=== PATIENT | female | born 1960 | race Caucasian/White ===

== ENCOUNTER 2016-05-23 13:04 | Emergency (ER) | payer OTHER ==
[~2016-05-23] VITALS: Ht 160 cm; Wt 69.2 kg
[~2016-05-23 13:04] MED LIST: ALPR-411 PO; BNT20 PO; CALCTAB13 PO; CIPR-255 PO; CYCL10TA6 PO; ESOM20CA PO; GABA1CAP4 PO; METR-163 PO; OMEG10007 PO; VITA400C15 PO
[2016-05-23 13:10] VITALS: Ht 160 cm; Wt 69.2 kg
[2016-05-23] MEDS ORDERED: SODIUM CHLORIDE 0.9% 1000ML 1,000 ML IV STA (14:59)
[2016-05-23] MEDS ORDERED: ONDANSETRON INJ 2 MG/ML 2 ML VIAL IV STA (14:59)
[2016-05-23] MEDS ORDERED: TRAZ50TA35 PO (15:13)
--- NOTE | 2016-05-23 15:17 | EMERGENCY ROOM VISIT NOTE ---
History Report prepared by Ashley: Jessica Null Under the Supervision of: Dr. Juan Fonseca D.O. First contact with patient: 14:54 Chief Complaint: GI ASSESSMENT Stated Complaint: BLOTED BOWELS, PAIN Nursing Triage Summary: Pt c/o loose stools, back pain, gassy sx x days History of Present Illness The patient is a 56 year old female who presents to the Emergency Room with complaints of severe and persistent left sided abdominal pain starting 3 days ago. She notes the pain radiates to her left flank. She also reports nausea, gassiness, and diarrhea. She has 4-5 bowel movements every day. She has not seen her PCP for her current symptoms. The patient denies fevers, chills, vomiting, blood in bowel movement, blood in urine, or any other complaints. She denies any history of appendectomy or cholecystectomy. Source of History: patient Onset: 3 days ago Position: abdomen (left sided) Symptom Intensity: severe Timing: other (persistent) Associated Symptoms: + diarrhea, + nausea, No chills, No fevers, No vomiting Review of Systems See HPI for pertinent positives & negatives. A total of 10 systems reviewed and were otherwise negative. Past Medical & Surgical Medical Problems: (1) Anxiety (2) Bipolar disorder (3) COPD, moderate (4) Fibromyalgia (5) GERD (gastroesophageal reflux disease) Surgical Problems: (1) History of tubal ligation (2) Lipoma tumor removal (3) Previous section Family History Diabetes mellitus Social History Smoking Status: Current Every Day Smoker Alcohol Use: none Drug Use: marijuana Marital Status: single Housing Status: lives alone Occupation Status: disabled Current/Historical Medications Scheduled Calcium Carbonate-Vitamin D (Calcium 500+D), 1 TAB PO DAILY Calcium Polycarbophil (Fiber Tabs), 625 MG PO DAILY Cyanocobalamin (Vitamin B-12), 500 MCG PO DAILY Esomeprazole Magnesium (Nexium), 20 MG PO QAM Ferrous Sulfate (Ferrous Sulfate), 325 MG PO DAILY Fish Oil ([place]-3), 1,000 MG PO QAM Gabapentin (Gabapentin), 300 MG PO TID Ondasetron Odt (Zofran Odt), 4 MG SL Q6H Trazodone Hcl (Trazodone), 50 MG PO HS Vitamin E (Vitamin E 400 Iu), 800 INTER.UNIT PO DAILY Scheduled PRN Alprazolam (Alprazolam), 0.5 MG PO TID PRN for Anxiety Cyclobenzaprine HCl (Cyclobenzaprine HCl), 10 MG PO HS PRN for Muscle Spasm Ipratropium-Albuterol (Combivent Respimat), 1 PUFF INH QID PRN for COPD Oxycodone Immediate Rel Tab (Roxicodone Ir), 1-2 TAB PO Q4H PRN for Severe Pain Oxycodone/Acetaminophen 5MG/325MG (Percocet 5MG/325MG), 1 TABLET PO Q4H PRN for Pain Allergies Coded Allergies: Lorazepam (Verified Allergy, Mild, UNK, 05/23/16) BEE STING (Unverified Allergy, Unknown, "LUNGS CLOSE UP", 05/23/16) Diclofenac (Verified Allergy, Unknown, 05/23/16) Risperidone (Verified Allergy, Unknown, UNKNOWN, 05/23/16) Physical Exam Vital Signs Date Time Temp Pulse Resp B/P Pulse Ox O2 Delivery O2 Flow Rate FiO2 05/23/16 17:13 36.6 87 20 133/88 96 05/23/16 17:11 87 20 133/88 96 Room Air 05/23/16 16:06 81 20 128/81 96 Room Air 05/23/16 13:10 36.6 84 20 130/86 96 Room Air Physical Exam GENERAL: Patient is awake, alert, mildly anxious appearing and uncomfortable. EYES: The conjunctivae are clear. The pupils are round and reactive. EARS, NOSE, MOUTH AND THROAT: The nose is without any evidence of any deformity. Mucous membranes are moist tongue is midline NECK: The neck is nontender and supple. RESPIRATORY: Normal respiratory effort is noted there is no evidence of wheezing rhonchi or rales CARDIOVASCULAR: Regular rate and rhythm noted there no murmurs rubs or gallops normal S1 normal S2 GASTROINTESTINAL: The abdomen is mildly distended but soft. Left sided tenderness to palpation. No guarding or rigidity. Bowel sounds are present in all quadrants. BACK: Left CVA tenderness to percussion, no midline tenderness noted, range of motion appeared intact. MUSCULOSKELETAL/EXTREMITIES: There is no evidence of gross deformity full range of motion is noted in the hips and shoulders SKIN: There is no obvious evidence of any rash. There are no petechiae, pallor or cyanosis noted. NEUROLOGIC: Patient is awake alert and oriented x3 Medical Decision & Procedures ER Provider Diagnostic Interpretation: CT results as stated below per my review and radiologist interpretation. CT SCAN OF THE ABDOMEN AND PELVIS WITHOUT CONTRAST CLINICAL HISTORY: left flank pain COMPARISON STUDY: 12/22/2015 TECHNIQUE: CT scan of the abdomen and pelvis was performed from the lung bases to the proximal femurs. Images are reviewed in the axial, sagittal, and coronal planes. IV contrast was not administered for this examination. CT DOSE: 399.41 mGy.cm FINDINGS: Lower chest: There are bilateral lower lobe calcified granulomas. Liver: There is hepatic steatosis. No focal masses are visualized in this noncontrast study. Gallbladder: Unremarkable. Spleen: Normal in size and attenuation. Pancreas: Unremarkable. Adrenal glands: Unremarkable. Kidneys: There is a 3 mm nonobstructing left renal calculus. No ureteral or bladder calculi are visualized. Bowel: There are no transition zones to indicate bowel obstruction. The appendix appears normal. There is persistent sigmoid wall thickening. Evaluation of the bowel is limited due to the lack of intravenous and oral contrast Peritoneum: There is no intraperitoneal free air or abdominal ascites. Vasculature: The abdominal aorta is normal in course and caliber. Adenopathy: None. Pelvic viscera: There is a 9 mm fat-containing lesion within the uterus, likely representing a lipoma. Skeletal structures: No destructive osseous lesions are seen. IMPRESSION: 1. 3 mm nonobstructing upper pole left renal calculus. No ureteral or bladder calculi identified 2. Hepatic steatosis 3. Normal appendix 4. No evidence of bowel obstruction. No evidence of free air 5. Persistent sigmoid wall thickening. Electronically signed by: Donte Yi M.D. 05/23/2016 3:56 PM Dictated Date/Time: 05/23/2016 3:50 PM Laboratory Results 05/23/16 15:15 Red Blood Count 5.22, Mean Corpuscular Volume 92.3, Mean Corpuscular Hemoglobin 31.4, Mean Corpuscular Hemoglobin Concent 34.0, Mean Platelet Volume 9.4, Neutrophils (%) (Auto) 68.3, Lymphocytes (%) (Auto) 26.1, Monocytes (%) (Auto) 5.0, Eosinophils (%) (Auto) 0.3, Basophils (%) (Auto) 0.1, Neutrophils # (Auto) 6.11, Lymphocytes # (Auto) 2.34, Monocytes # (Auto) 0.45, Eosinophils # (Auto) 0.03, Basophils # (Auto) 0.01 05/23/16 15:15 Test 05/23/16 15:15 White Blood Count 8.96 K/uL (4.8-10.8) Red Blood Count 5.22 M/uL (4.2-5.4) Hemoglobin 16.4 g/dL (12.0-16.0) Hematocrit 48.2 % (37-47) Mean Corpuscular Volume 92.3 fL (80-100) Mean Corpuscular Hemoglobin 31.4 pg (25-34) Mean Corpuscular Hemoglobin Concent 34.0 g/dl (32-36) Platelet Count 347 K/uL (130-400) Mean Platelet Volume 9.4 fL (7.4-10.4) Neutrophils (%) (Auto) 68.3 % Lymphocytes (%) (Auto) 26.1 % Monocytes (%) (Auto) 5.0 % Eosinophils (%) (Auto) 0.3 % Basophils (%) (Auto) 0.1 % Neutrophils # (Auto) 6.11 K/uL (1.4-6.5) Lymphocytes # (Auto) 2.34 K/uL (1.2-3.4) Monocytes # (Auto) 0.45 K/uL (0.11-0.59) Eosinophils # (Auto) 0.03 K/uL (0-0.5) Basophils # (Auto) 0.01 K/uL (0-0.2) RDW Standard Deviation 46.0 fL (36.4-46.3) RDW Coefficient of Variation 13.6 % (11.5-14.5) Immature Granulocyte % (Auto) 0.2 % Immature Granulocyte # (Auto) 0.02 K/uL (0.00-0.02) Urine Color DK YELLOW Urine Appearance TURBID (CLEAR) Urine pH 5.0 (4.5-7.5) Urine Specific [place] 1.037 (1.000-1.030) Urine Protein TRACE (NEG) Urine Glucose (UA) NEG (NEG) Urine Ketones 2+ (NEG) Urine Occult Blood 2+ (NEG) Urine Nitrite NEG (NEG) Urine Bilirubin NEG (NEG) Urine Urobilinogen NEG (NEG) Urine Leukocyte Esterase NEG (NEG) Urine WBC (Auto) 1-5 /hpf (0-5) Urine RBC (Auto) 5-10 /hpf (0-4) Urine Hyaline Casts (Auto) 10-30 /lpf (0-5) Urine Epithelial Cells (Auto) >30 /lpf (0-5) Urine Bacteria (Auto) 2+ (NEG) Anion Gap 11.0 mmol/L (3-11) Est Creatinine Clear Calc Drug Dose 73.3 ml/min Estimated GFR () 96.3 Estimated GFR (Non- 83.1 BUN/Creatinine Ratio 25.4 (10-20) Calcium Level 9.6 mg/dl (8.5-10.1) Total Bilirubin 0.5 mg/dl (0.2-1) Direct Bilirubin 0.1 mg/dl (0-0.2) Aspartate Amino Transf (AST/SGOT) 13 U/L (15-37) Alanine Aminotransferase (ALT/SGPT) 31 U/L (12-78) Alkaline Phosphatase 111 U/L (45-117) Total Protein 8.0 gm/dl (6.4-8.2) Albumin 4.3 gm/dl (3.4-5.0) Lipase 64 U/L (73-393) Date/Time Source Procedure Growth Status 05/23/16 17:00 Stool C.difficile Toxin B Gene (PCR) - Final Positive for C. difficile toxin B gene Complete Laboratory results per my review. Medications Administered Medications (Trade) Dose Ordered Sig/Rashawn Route Start Time Stop Time Status Last Admin Dose Admin Sodium Chloride (Nss 1000ml) 1,000 ml @ 999 mls/hr Q1H1M STAT IV 05/23/16 14:59 05/23/16 15:59 DC 05/23/16 15:23 999 MLS/HR Ondansetron HCl (Zofran Inj) 4 mg NOW STAT IV 05/23/16 14:59 05/23/16 15:19 DC 05/23/16 15:23 4 MG ED Course 1454: The patient was evaluated in room C06. A complete history and physical examination were performed. 1459: Zofran Inj 4 mg IV, Sodium Chloride 1000 mL @ 999 mls/hr IV 1626: Upon reevaluation, the patient is resting comfortably. I discussed the results and treatment plan with her. She verbalized agreement of the treatment plan. She was discharged home. Medical Decision Differential diagnosis: Etiologies such as appendicitis, diverticulitis, PUD, biliary pathology, UTI, pancreatitis, obstruction, mesenteric ischemia, aortic pathology, infections, inflammatory bowel disease, renal colic, as well as others were entertained. Nursing notes reviewed. The patient is a 56-year-old female who presented to the emergency department for an evaluation of abdominal pain and diarrhea. She had flank pain as well. The patient thought she might of either kidney stone or bowel infection. The patient had formed stool which was sent to the lab. I did not know that they could run a C. difficile test on this but it did come back positive after the patient was discharged. The emergency department pharmacist was able to contact the patient started on Flagyl. She was treated with IV fluids and IV antiemetics in the emergency department. I discussed patient's laboratory and radiographic studies with her. She was encouraged to rest and avoid any strenuous activity. She was also encouraged to continue all medications as prescribed and call her primary care physician in the morning to schedule a follow-up appointment. She was also encouraged to return to the emergency apartment immediately if symptoms change worsen or the need arises. Impression Primary Impression: Diarrhea Additional Impressions: Dehydration C. difficile colitis Scribe Attestation The scribe's documentation has been prepared under my direction and personally reviewed by me in its entirety. I confirm that the note above accurately reflects all work, treatment, procedures, and medical decision making performed by me. Departure Information Dispostion Home / Self-Care Prescriptions Ondasetron Odt (ZOFRAN ODT) 4 Mg Tab 4 MG SL Q6H for Nausea, #20 TAB Prov: Juan Fonseca, DO 05/23/16 Oxycodone Immediate Rel Tab (ROXICODONE IR) 5 Mg Tab 1-2 TAB PO Q4H Y for Severe Pain, #24 TAB Prov: Juan Fonseca, DO 05/23/16 Referrals Andre Mancera D.OMarco A (PCP) Forms HOME CARE DOCUMENTATION FORM, IMPORTANT VISIT INFORMATION Patient Instructions [facility] Additional Instructions Call your family to schedule a follow-up appointment. Drink plenty of clear liquids. Continue all medications as prescribed. Discuss with your family doctor the possibility that you may require a follow-up appointment with a instructor flying for further evaluation. Problem Qualifiers
[2016-05-23] MEDS ORDERED: CYCL10TA7 PO (15:31)
[2016-05-23] MEDS ORDERED: ALPR-411 PO (15:31)
[2016-05-23] MEDS ORDERED: VITA400C3 PO (15:33)
[2016-05-23] MEDS ORDERED: CALCTAB76 PO (15:33)
[2016-05-23 15:47] LABS: BASO % 0.1 %; BASO ABS # 0.01 K/uL (0-0.2); COMPLETE YES; EOS % 0.3 %; HEMATOCRIT 48.2 % (37-47); IG% 0.2 %; LYMPH % 26.1 %; LYMPH ABS # 2.34 K/uL (1.2-3.4); MEAN CELL VOLUME 92.3 fL (80-100); MEAN CORPUSCULAR HEMOGLOBIN 31.4 pg (25-34); MEAN PLATELET VOLUME 9.4 fL (7.4-10.4); NEUT % 68.3 %; PLATELET COUNT 347 K/uL (130-400); RED BLOOD COUNT 5.22 M/uL (4.2-5.4); WHITE BLOOD COUNT 8.96 K/uL (4.8-10.8)
--- NOTE | 2016-05-23 15:58 | DIAGNOSTIC IMAGING REPORT ---
CT SCAN OF THE ABDOMEN AND PELVIS WITHOUT CONTRAST CLINICAL HISTORY: left flank pain COMPARISON STUDY: 12/22/2015 TECHNIQUE: CT scan of the abdomen and pelvis was performed from the lung bases to the proximal femurs. Images are reviewed in the axial, sagittal, and coronal planes. IV contrast was not administered for this examination. CT DOSE: 399.41 mGy.cm FINDINGS: Lower chest: There are bilateral lower lobe calcified granulomas. Liver: There is hepatic steatosis. No focal masses are visualized in this noncontrast study. Gallbladder: Unremarkable. Spleen: Normal in size and attenuation. Pancreas: Unremarkable. Adrenal glands: Unremarkable. Kidneys: There is a 3 mm nonobstructing left renal calculus. No ureteral or bladder calculi are visualized. Bowel: There are no transition zones to indicate bowel obstruction. The appendix appears normal. There is persistent sigmoid wall thickening. Evaluation of the bowel is limited due to the lack of intravenous and oral contrast Peritoneum: There is no intraperitoneal free air or abdominal ascites. Vasculature: The abdominal aorta is normal in course and caliber. Adenopathy: None. Pelvic viscera: There is a 9 mm fat-containing lesion within the uterus, likely representing a lipoma. Skeletal structures: No destructive osseous lesions are seen. IMPRESSION: 1. 3 mm nonobstructing upper pole left renal calculus. No ureteral or bladder calculi identified 2. Hepatic steatosis 3. Normal appendix 4. No evidence of bowel obstruction. No evidence of free air 5. Persistent sigmoid wall thickening. Electronically signed by: Donte Yi M.D. 05/23/2016 3:56 PM Dictated Date/Time: 05/23/2016 3:50 PM
[2016-05-23 16:09] LABS: BUN/CREATININE RATIO 25.4 (10-20); CALCIUM 9.6 mg/dl (8.5-10.1); CREATININE 0.79 mg/dl (0.60-1.20); POTASSIUM 3.6 mmol/L (3.5-5.1)
[2016-05-23 16:39] LABS: URINE APPEARANCE TURBID (CLEAR); URINE COLOR DK YELLOW; URINE EPITHELIAL CELL AUTO >30 /lpf (0-5); URINE NITRITE NEG (NEG); URINE SPECIFIC GRAVITY 1.037 (1.000-1.030); UROBILINOGEN NEG (NEG)
[2016-05-23] MEDS ORDERED: OXYC1TAB3 PO (16:39)
[2016-05-23] MEDS ORDERED: ONDA4TAB10 SL (16:39)
[2016-05-23 16:44] LABS: MANUAL MICROSCOPIC REQUIRED? NO; REVIEW REQ? NO
[2016-05-23 16:45] LABS: URINE BILIRUBIN NEG (NEG)
[2016-05-23 17:13] VITALS: BP 133/88; PULSE 87; TEMP 36.6; O2SAT 96
--- NOTE | 2016-05-23 18:45 | Pharmacy Progress Note ---
ED Pharmacist Culture FollowUp Date of Service: May 23, 2016. Patient's stool tested positive for C diff. Discussed case with Dr Fonseca. Patient is to begin Flagyl 500mg PO TID x 10 days. I contacted the patient via phone. She requested I phone the Rx to [place] [id number] [address] ([phone]). The Rx was called to this pharmacy.
[2016-05-23] MEDS ORDERED: IPRA1AER2 INH (20:23)
[2016-05-23] MEDS ORDERED: CYAN500L3 PO (20:23)
[2016-05-23] MEDS ORDERED: FERR325T5 PO (21:10)
[2016-05-23] MEDS ORDERED: CALC625T13 PO (22:32)
[2016-05-23] MEDS ORDERED: OXYC-57 PO (22:32)
[2016-12-14] MEDS ORDERED: VNCS125 PO (07:41)
[2016-12-14] MEDS ORDERED: LVQ750 PO (07:41)
[2016-12-14] MEDS ORDERED: OXYC-57 PO (10:21)
== END 2016-05-23 17:15 | disposition home or self-care (01) ==
LOC: C.EDB 13:08 → C.EDC 17:15
DX: R19.7 Diarrhea, unspecified (principal); E86.0 Dehydration; A04.7 Enterocolitis due to Clostridium difficile; F41.9 Anxiety disorder, unspecified; J44.9 Chronic obstructive pulmonary disease, unspecified; M79.7 Fibromyalgia; K21.9 Gastro-esophageal reflux disease without esophagitis; Z98.51 Tubal ligation status; Z98.890 Other specified postprocedural states; Z83.3 Family history of diabetes mellitus; F17.200 Nicotine dependence, unspecified, uncomplicated

== ENCOUNTER 2016-10-22 16:36 | Emergency (ER) | payer OTHER ==
[~2016-10-22] VITALS: Ht 160 cm; Wt 65.5 kg
[~2016-10-22 16:36] MED LIST changes: -BNT20 PO; +CALC625T13 PO; -CALCTAB13 PO; +CALCTAB76 PO; -CIPR-255 PO; +CYAN500L3 PO; -CYCL10TA6 PO; +CYCL10TA7 PO; +FERR325T5 PO; +IPRA1AER2 INH; -METR-163 PO; +ONDA4TAB10 SL; +OXYC-57 PO; +OXYC1TAB3 PO; +TRAZ50TA35 PO; -VITA400C15 PO; +VITA400C3 PO
[2016-10-22 16:40] VITALS: TEMP 36.9; Ht 160 cm; Wt 65.5 kg
[2016-10-22 17:22] LABS: BASO % 0.1 %; BASO ABS # 0.01 K/uL (0-0.2); COMPLETE YES; EOS % 0.8 %; HEMATOCRIT 46.8 % (37-47); IG% 0.2 %; LYMPH % 24.6 %; LYMPH ABS # 2.46 K/uL (1.2-3.4); MEAN CELL VOLUME 94.2 fL (80-100); MEAN CORPUSCULAR HEMOGLOBIN 31.6 pg (25-34); MEAN CORPUSCULAR HGB CONC 33.5 g/dl (32-36); MEAN PLATELET VOLUME 9.1 fL (7.4-10.4); MONO % 5.8 %; NEUT % 68.5 %; PLATELET COUNT 361 K/uL (130-400); RED BLOOD COUNT 4.97 M/uL (4.2-5.4); WHITE BLOOD COUNT 10.02 K/uL (4.8-10.8)
[2016-10-22] MEDS ORDERED: MoRPHine SULFATE 4 MG/ML 1 ML CARP\\VIAL IV STA ×2 (17:24→19:52)
[2016-10-22] MEDS ORDERED: SODIUM CHLORIDE 0.9% 1000ML 1,000 ML IV STA (17:24)
[2016-10-22] MEDS ORDERED: ONDANSETRON INJ 2 MG/ML 2 ML VIAL IV STA (17:24)
[2016-10-22 17:37] LABS: URINE APPEARANCE CLOUDY (CLEAR); URINE COLOR DK YELLOW; URINE EPITHELIAL CELL AUTO >30 /lpf (0-5); URINE NITRITE NEG (NEG); URINE SPECIFIC GRAVITY 1.037 (1.000-1.030); UROBILINOGEN NEG (NEG)
[2016-10-22 17:39] LABS: ALT/SGPT 25 U/L (12-78); BLOOD UREA NITROGEN 20 mg/dl (7-18); BUN/CREATININE RATIO 25.5 (10-20); CALCIUM 9.6 mg/dl (8.5-10.1); CARBON DIOXIDE 26 mmol/L (21-32); CHLORIDE 108 mmol/L (98-107); GLUCOSE 88 mg/dl (70-99); POTASSIUM 3.6 mmol/L (3.5-5.1); SODIUM 142 mmol/L (136-145)
[2016-10-22 17:42] LABS: ALKALINE PHOSPHATASE 133 U/L (45-117); AST/SGOT 11 U/L (15-37)
[2016-10-22 17:48] LABS: MANUAL MICROSCOPIC REQUIRED? NO; REVIEW REQ? YES; URINE BILIRUBIN NEG (NEG)
[2016-10-22 17:50] LABS: URINE MUCUS PRESENT (NONE PRSENT)
[2016-10-22 17:51] LABS: ZZUR CULT IF INDIC CLEAN CATCH YES
--- NOTE | 2016-10-22 19:30 | DIAGNOSTIC IMAGING REPORT ---
LEFT HAND MIN 3 VIEWS ROUTINE CLINICAL HISTORY: Left first digit pain. COMPARISON: Left index finger radiographs February 28, 2012 and left hand radiographs January 14, 2011. FINDINGS: A well-corticated ossicle along the ulnar styloid is unchanged and suggests old injury. There is no acute fracture within the left hand. Alignment is anatomic. 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 IMPRESSION: 1. No acute fracture or dislocation of the left hand. 2. Mild arthritis within multiple articulations of the left hand and wrist. Electronically signed by: Felipe Morales M.D. 10/22/2016 7:29 PM Dictated Date/Time: 10/22/2016 7:27 PM
--- NOTE | 2016-10-22 19:58 | DIAGNOSTIC IMAGING REPORT ---
CT OF THE ABDOMEN AND PELVIS WITH CONTRAST CLINICAL HISTORY: Left lower quadrant abdominal pain. COMPARISON STUDY: CT of the abdomen and pelvis May 13, 2016. TECHNIQUE: Following IV administration of 115 mL of Optiray-320, axial images of the abdomen and pelvis were obtained from the lung bases to the proximal femurs. Images were reviewed in the axial, sagittal, and coronal planes. IV contrast was administered without complication. Oral contrast was administered. CT DOSE: 265.06 mGy.cm FINDINGS: A calcified granuloma is noted within the right lower lobe. The liver, spleen, adrenal glands, kidneys and pancreas are normal. There is no hydronephrosis. There is no peripancreatic or pericholecystic infiltration. No biliary or pancreatic ductal dilatation is present. There is moderate atherosclerotic plaque of the abdominal aorta. The caliber of small and large bowel is normal. There is sigmoid diverticulosis without evidence for acute diverticulitis. Mild sigmoid wall thickening is unchanged and likely chronic. This may reflect circular muscular hypertrophy. The appendix is normal. No lymphadenopathy is present. There is no ascites. IMPRESSION: 1. No acute process within the abdomen or pelvis. 2. Sigmoid diverticulosis without evidence for acute diverticulitis. Electronically signed by: Felipe Morales M.D. 10/22/2016 7:57 PM Dictated Date/Time: 10/22/2016 7:50 PM
[2016-10-22] MEDS ORDERED: OPTIRAY 320 IV PRN (20:00)
[2016-10-22 20:01] VITALS: BP 153/98; PULSE 65; O2SAT 97
--- NOTE | 2016-10-22 20:53 | EMERGENCY ROOM VISIT NOTE ---
History Report prepared by Ashley: Layo Fuentes Under the Supervision of: Dr. Ilya Garcia D.O. First contact with patient: 16:48 Chief Complaint: ABDOMINAL PAIN Stated Complaint: LIGHT HEADED,? BOWEL INFECTION, LT HAND HURTS Nursing Triage Summary: Pt c/o left lower abdominal pain, states it feels like when she had a bowel infection "and I feel dehydrated and lightheaded. Loss of appetite. Denies n/v/d. Loose bowels. Pt c/o left hand/thumb pain. Unsure if injury. Pt report panic attacks "because I'm so sick" History of Present Illness The patient is a 56 year old female who presents to the Emergency Room with complaints of persistent abdominal pain beginning five days ago. She also complains of lightheadedness, diarrhea, abdominal distension, back pain, and cough. She has a history of recurrent C Diff and feels that she may have C Diff again. Her most recent C Diff infection was 5-6 months ago. The patient states that she had "loose stools" two to three days ago but states that she had her first episode of diarrhea occurred shortly after arrival to the ED. She estimates that she has been having 6-7 bowel movements a day. She denies noticing any blood in her stool. Pt denies headache, change in vision, fevers, chest pain, shortness of breath, nausea, vomiting, pain with urination, and melena. The patient also complains of left wrist pain beginning about a week ago. She states that she was lifting her grandson when she injured it. Source of History: patient Onset: Five days ago Position: abdomen Timing: other (persistent) Associated Symptoms: + cough, + diarrhea, No fevers, No headache, No chest pain, No SOB, No nausea, No vomiting, No melena, No urinary symptoms Note: The patient also complains of lightheadedness, and abdominal distension. Review of Systems See HPI for pertinent positives & negatives. A total of 10 systems reviewed and were otherwise negative. Past Medical & Surgical Medical Problems: (1) Anxiety (2) Bipolar disorder (3) COPD, moderate (4) Fibromyalgia (5) GERD (gastroesophageal reflux disease) Surgical Problems: (1) History of tubal ligation (2) Lipoma tumor removal (3) Previous section Family History Diabetes mellitus Social History Smoking Status: Current Every Day Smoker Alcohol Use: none Drug Use: marijuana Marital Status: single Housing Status: lives alone Occupation Status: disabled Current/Historical Medications Scheduled Calcium Carbonate-Vitamin D (Calcium 500+D), 1 TAB PO DAILY Calcium Polycarbophil (Fiber Tabs), 625 MG PO DAILY Cyanocobalamin (Vitamin B-12), 500 MCG PO DAILY Esomeprazole Magnesium (Nexium), 20 MG PO QAM Ferrous Sulfate (Ferrous Sulfate), 325 MG PO DAILY Fish Oil ([place]-3), 1,000 MG PO QAM Gabapentin (Gabapentin), 300 MG PO TID Trazodone Hcl (Trazodone), 50 MG PO HS Vitamin E (Vitamin E 400 Iu), 800 INTER.UNIT PO DAILY Scheduled PRN Alprazolam (Alprazolam), 0.5 MG PO TID PRN for Anxiety Cyclobenzaprine HCl (Cyclobenzaprine HCl), 10 MG PO HS PRN for Muscle Spasm Ipratropium-Albuterol (Combivent Respimat), 1 PUFF INH QID PRN for COPD Oxycodone/Acetaminophen 5MG/325MG (Percocet 5MG/325MG), 1 TABLET PO Q4H PRN for Pain Allergies Coded Allergies: Lorazepam (Verified Allergy, Mild, UNK, 10/22/16) BEE STING (Unverified Allergy, Unknown, "LUNGS CLOSE UP", 10/22/16) Diclofenac (Verified Allergy, Unknown, 10/22/16) Risperidone (Verified Allergy, Unknown, UNKNOWN, 10/22/16) Physical Exam Vital Signs Date Time Temp Pulse Resp B/P (MAP) Pulse Ox O2 Delivery O2 Flow Rate FiO2 10/22/16 20:01 65 18 153/98 97 Room Air 10/22/16 16:40 36.9 58 20 147/100 98 Room Air Physical Exam GENERAL: Sitting up in bed, disheveled, no acute distress, nontoxic EYE EXAM: normal conjunctiva OROPHARYNX: no exudate, no erythema, lips, buccal mucosa, and tongue normal and mucous membranes are moist NECK: supple, no nuchal rigidity, no adenopathy, non-tender LUNGS: Clear to auscultation. Normal chest wall mechanics HEART: no murmurs, S1 normal and S2 normal ABDOMEN: abdomen soft, normo-active bowel sounds, no masses, no rebound or guarding. Faint tenderness in the LLQ. BACK: Back is symmetrical on inspection and there is no deformity, no midline tenderness, no CVA tenderness. Rectal: Loose, brown stool. SKIN: no rashes and no bruising UPPER EXTREMITIES: upper extremities are grossly normal. mild pain at the base of her left first MTP. No bruising or swelling. LOWER EXTREMITIES: No pitting edema. NEURO EXAM: Normal sensorium, cranial nerves II-XII intact, normal speech, no weakness of arms, no weakness of legs. Negative drift. Finger to nose intact. Medical Decision & Procedures ER Provider Diagnostic Interpretation: Radiology results as stated below per my review and the radiologist's interpretation: CT OF THE ABDOMEN AND PELVIS WITH CONTRAST FINDINGS: A calcified granuloma is noted within the right lower lobe. The liver, spleen, adrenal glands, kidneys and pancreas are normal. There is no hydronephrosis. There is no peripancreatic or pericholecystic infiltration. No biliary or pancreatic ductal dilatation is present. There is moderate atherosclerotic plaque of the abdominal aorta. The caliber of small and large bowel is normal. There is sigmoid diverticulosis without evidence for acute diverticulitis. Mild sigmoid wall thickening is unchanged and likely chronic. This may reflect circular muscular hypertrophy. The appendix is normal. No lymphadenopathy is present. There is no ascites. IMPRESSION: 1. No acute process within the abdomen or pelvis. 2. Sigmoid diverticulosis without evidence for acute diverticulitis. Electronically signed by: Felipe Morales M.D. LEFT HAND MIN 3 VIEWS ROUTINE FINDINGS: A well-corticated ossicle along the ulnar styloid is unchanged and suggests old injury. There is no acute fracture within the left hand. Alignment is anatomic. 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 IMPRESSION: 1. No acute fracture or dislocation of the left hand. 2. Mild arthritis within multiple articulations of the left hand and wrist. Electronically signed by: Felipe Morales M.D. Laboratory Results 10/22/16 17:07 Red Blood Count 4.97, Mean Corpuscular Volume 94.2, Mean Corpuscular Hemoglobin 31.6, Mean Corpuscular Hemoglobin Concent 33.5, Mean Platelet Volume 9.1, Neutrophils (%) (Auto) 68.5, Lymphocytes (%) (Auto) 24.6, Monocytes (%) (Auto) 5.8, Eosinophils (%) (Auto) 0.8, Basophils (%) (Auto) 0.1, Neutrophils # (Auto) 6.87, Lymphocytes # (Auto) 2.46, Monocytes # (Auto) 0.58, Eosinophils # (Auto) 0.08, Basophils # (Auto) 0.01 10/22/16 17:07 Test 10/22/16 17:07 White Blood Count 10.02 K/uL (4.8-10.8) Red Blood Count 4.97 M/uL (4.2-5.4) Hemoglobin 15.7 g/dL (12.0-16.0) Hematocrit 46.8 % (37-47) Mean Corpuscular Volume 94.2 fL (80-100) Mean Corpuscular Hemoglobin 31.6 pg (25-34) Mean Corpuscular Hemoglobin Concent 33.5 g/dl (32-36) Platelet Count 361 K/uL (130-400) Mean Platelet Volume 9.1 fL (7.4-10.4) Neutrophils (%) (Auto) 68.5 % Lymphocytes (%) (Auto) 24.6 % Monocytes (%) (Auto) 5.8 % Eosinophils (%) (Auto) 0.8 % Basophils (%) (Auto) 0.1 % Neutrophils # (Auto) 6.87 K/uL (1.4-6.5) Lymphocytes # (Auto) 2.46 K/uL (1.2-3.4) Monocytes # (Auto) 0.58 K/uL (0.11-0.59) Eosinophils # (Auto) 0.08 K/uL (0-0.5) Basophils # (Auto) 0.01 K/uL (0-0.2) RDW Standard Deviation 47.3 fL (36.4-46.3) RDW Coefficient of Variation 13.9 % (11.5-14.5) Immature Granulocyte % (Auto) 0.2 % Immature Granulocyte # (Auto) 0.02 K/uL (0.00-0.02) Urine Color DK YELLOW Urine Appearance CLOUDY (CLEAR) Urine pH 5.0 (4.5-7.5) Urine Specific [place] 1.037 (1.000-1.030) Urine Protein TRACE (NEG) Urine Glucose (UA) NEG (NEG) Urine Ketones TRACE (NEG) Urine Occult Blood 1+ (NEG) Urine Nitrite NEG (NEG) Urine Bilirubin NEG (NEG) Urine Urobilinogen NEG (NEG) Urine Leukocyte Esterase NEG (NEG) Urine WBC (Auto) 1-5 /hpf (0-5) Urine RBC (Auto) 0-4 /hpf (0-4) Urine Hyaline Casts (Auto) 0 /lpf (0-5) Urine Epithelial Cells (Auto) >30 /lpf (0-5) Urine Bacteria (Auto) 2+ (NEG) Urine Crystals CALCIUM OXALATE (NONE Urine Pathogenic Casts /lpf (0) Urine Mucus PRESENT (NONE PRSENT) Urine Test NEG (NEG) Anion Gap 8.0 mmol/L (3-11) Est Creatinine Clear Calc Drug Dose 70.6 ml/min Estimated GFR () 94.9 Estimated GFR (Non- 81.8 BUN/Creatinine Ratio 25.5 (10-20) Calcium Level 9.6 mg/dl (8.5-10.1) Total Bilirubin 0.3 mg/dl (0.2-1) Direct Bilirubin < 0.1 mg/dl (0-0.2) Aspartate Amino Transf (AST/SGOT) 11 U/L (15-37) Alanine Aminotransferase (ALT/SGPT) 25 U/L (12-78) Alkaline Phosphatase 133 U/L (45-117) Total Protein 8.0 gm/dl (6.4-8.2) Albumin 3.9 gm/dl (3.4-5.0) Lipase 118 U/L (73-393) Date/Time Source Procedure Growth Status 10/22/16 17:10 Stool C.difficile Toxin B Gene (PCR) - Final No C. difficile toxin B gene detected Complete Laboratory results per my review. Medications Administered Medications (Trade) Dose Ordered Sig/Rashawn Route Start Time Stop Time Status Last Admin Dose Admin Sodium Chloride 1,000 ml @ 999 mls/hr Q1H1M STAT IV 10/22/16 17:24 10/22/16 18:24 DC 10/22/16 17:52 999 MLS/HR Ondansetron HCl (Zofran Inj) 4 mg NOW STAT IV 10/22/16 17:24 10/22/16 17:25 DC 10/22/16 17:50 4 MG Morphine Sulfate (MoRPHine SULFATE INJ) 4 mg NOW STAT IV 10/22/16 17:24 10/22/16 17:25 DC 10/22/16 17:50 4 MG Morphine Sulfate (MoRPHine SULFATE INJ) 4 mg NOW STAT IV 10/22/16 19:52 10/22/16 19:53 DC 10/22/16 20:00 4 MG ED Course ED COURSE: Vital signs were reviewed and showed hypertension and bradycardia. The patients medical record was reviewed The above diagnostic studies were performed and reviewed. ED treatments and interventions as stated above. 1652: The patient was evaluated in room B10. A complete history and physical examination was performed. 1723: Ordered Morphine Sulfate 4 mg IV, Zofran Inj 4 mg IV, Sodium Chloride 1000 ml @ 999 mls/hr IV. 1951: Ordered Morphine Sulfate 4 mg IV. 2004: Upon reevaluation, the patient is resting comfortably. I discussed my findings with the patient and she understands and agrees with the treatment plan. I recommended a cock-up splint, but she states that she already has one. Based on the patients age, coexisting illnesses, exam and lab findings the decision to treat as an outpatient was made. The patient remained stable while under my care. The patient appeared well at the time of discharge. Medical Decision Differential diagnoses includes but is not limited to gastritis, peptic ulcer disease, GERD, gallbladder disease, pancreatitis, small bowel obstruction, acute coronary syndrome, pericarditis, ischemic bowel, irritable bowel disease, irritable bowel syndrome, appendicitis, diverticulitis, malignancy, hernia, urinary tract infection, torsion, perforation, trauma, infectious. Patient is a 56-year-old female who presents the ER for left lower quadrant abdominal pain which started 5 days ago. She notes she started to have diarrhea today and this feels like her previous bouts of C. difficile. Abdominal exam is completely benign on palpation. CBC along with BMP, LFTs, bilirubin and lipase is normal. UA was without infection. was negative. She had no urinary symptoms. CT was completely negative. C. difficile negative. Remainder of stool cultures are pending. IV fluids and pain medications are given. She did feel significantly better. She was discharged to follow-up PCP. Discussed with Pt concerning signs and symptoms to watch out for. Pt was instructed to follow up with their PCP and discussed with the patient their option to return to the ED at anytime for persistent or worsening symptoms. The appropriate anticipatory guidance and out-patient management, including indications for return to the emergency department, were explained at length to the patient and understood. Impression Primary Impression: Abdominal pain Additional Impression: Left hand pain Scribe Attestation The scribe's documentation has been prepared under my direction and personally reviewed by me in its entirety. I confirm that the note above accurately reflects all work, treatment, procedures, and medical decision making performed by me. Departure Information Dispostion Home / Self-Care Referrals Andre Mancera D.O. (PCP) Forms Call Back Authorization, HOME CARE DOCUMENTATION FORM, IMPORTANT VISIT INFORMATION Patient Instructions Abdominal Pain - [facility], My [facility] Additional Instructions Please follow up with your primary care doctor with in the next 24 hours. Any worsening of your symptoms, please return to the ED immediately. This includes worsening pain, fevers greater than 100.4, persistent nausea vomiting, or any other concerning signs or symptoms from your standpoint. Please take Motrin or Tylenol as needed for pain. Problem Qualifiers Primary Impression: Abdominal pain Abdominal location: left upper quadrant Qualified Codes: R10.12 - Left upper quadrant pain
[2016-12-14] MEDS ORDERED: LVQ750 PO (07:41)
[2016-12-14] MEDS ORDERED: VNCS125 PO (07:41)
[2016-12-14] MEDS ORDERED: OXYC-57 PO (10:21)
== END 2016-10-22 20:14 | disposition home or self-care (01) ==
LOC: C.EDB 16:38
DX: R10.32 Left lower quadrant pain (principal); M79.642 Pain in left hand; F41.9 Anxiety disorder, unspecified; F31.9 Bipolar disorder, unspecified; J44.9 Chronic obstructive pulmonary disease, unspecified; K21.9 Gastro-esophageal reflux disease without esophagitis; M79.7 Fibromyalgia; Z98.51 Tubal ligation status; Z83.3 Family history of diabetes mellitus; F17.210 Nicotine dependence, cigarettes, uncomplicated; Z79.899 Other long term (current) drug therapy

== ENCOUNTER 2016-10-24 09:48 | Emergency (ER) | payer OTHER ==
[~2016-10-24] VITALS: Ht 160 cm; Wt 70.0 kg
[2016-10-24 09:58] VITALS: TEMP 36.7; Ht 160 cm; Wt 70.0 kg
[2016-10-24] MEDS ORDERED: KETOROLAC TROMETHAMINE 30 MG/ML VIAL IV STA (11:03)
[2016-10-24] MEDS ORDERED: SODIUM CHLORIDE 0.9% 1000ML 1,000 ML IV STA ×2 (11:03→12:16)
[2016-10-24] MEDS ORDERED: DICYCLOMINE HCL 20 MG TAB PO STA (11:03)
[2016-10-24] MEDS ORDERED: ACET-1256 PO (11:14)
[2016-10-24] MEDS ORDERED: IBUP-1050 PO (11:14)
[2016-10-24 11:17] LABS: BASO % 0.1 %; BASO ABS # 0.01 K/uL (0-0.2); COMPLETE YES; EOS % 1.2 %; HEMATOCRIT 44.9 % (37-47); IG% 0.1 %; LYMPH % 19.2 %; LYMPH ABS # 1.85 K/uL (1.2-3.4); MEAN CELL VOLUME 94.9 fL (80-100); MEAN CORPUSCULAR HEMOGLOBIN 31.9 pg (25-34); MEAN CORPUSCULAR HGB CONC 33.6 g/dl (32-36); MEAN PLATELET VOLUME 9.1 fL (7.4-10.4); MONO % 4.3 %; NEUT % 75.1 %; PLATELET COUNT 335 K/uL (130-400); RED BLOOD COUNT 4.73 M/uL (4.2-5.4); WHITE BLOOD COUNT 9.66 K/uL (4.8-10.8)
[2016-10-24 11:27] LABS: BUN/CREATININE RATIO 22.2 (10-20); CALCIUM 9.2 mg/dl (8.5-10.1); CREATININE 0.68 mg/dl (0.60-1.20); POTASSIUM 3.8 mmol/L (3.5-5.1)
[2016-10-24 11:30] LABS: ALB/GLOB RATIO 1.1 (0.9-2)
[2016-10-24 11:38] LABS: URINE APPEARANCE CLEAR (CLEAR); URINE BILIRUBIN NEG (NEG); URINE COLOR YELLOW; URINE EPITHELIAL CELL AUTO >30 /lpf (0-5); URINE NITRITE NEG (NEG); URINE SPECIFIC GRAVITY 1.027 (1.000-1.030); UROBILINOGEN NEG (NEG); ZZUR CULT IF INDIC CLEAN CATCH YES
[2016-10-24 11:40] LABS: MANUAL MICROSCOPIC REQUIRED? NO; REVIEW REQ? NO
--- NOTE | 2016-10-24 12:06 | EMERGENCY ROOM VISIT NOTE ---
History Report prepared by Ashley: Evi Rodriguez Under the Supervision of: Dr. Kate Torres D.O. First contact with patient: 10:47 Chief Complaint: GI ASSESSMENT Stated Complaint: INFLAMMED BOWELS, PAIN, HARD TO BREATHE/WALK Nursing Triage Summary: was seen monday told she has inflammed bowels and if worsened to come back pain has worsened History of Present Illness The patient is a 56 year old female who presents to the Emergency Room for a GI assessment. The patient was evaluated in the ED two days ago for LLQ abdominal pain. She had a CT at that time and she was discharged home and told to return with worsening symptoms. The patient states that her pain persisted yesterday. This morning she woke up and her pain was constant and much worse. She states that her "bowels feel inflamed," and her LLQ feels swollen and bloated. Her pain is radiating into her left lower back and her left groin. The patient rates her pain as a 9/10 in severity. Movement exacerbates her pain. She has been having diarrhea. She denies fever, chills, nausea, vomiting, hematochezia, and melena. The patient has a history of colitis and gastritis. She had a colonoscopy in 2010 that revealed internal hemorrhoids. Patient also states recent EGD. The patient takes Percocet for chronic back pain. Source of History: patient Onset: [employer] Position: abdomen (LLQ) Symptom Intensity: 9/10 Quality: other (radiating) Timing: worsening Modifying Factors (Worsening): movement Associated Symptoms: + back pain, + diarrhea, No fevers, No chills, No nausea, No vomiting, No melena, No hematochezia Review of Systems See HPI for pertinent positives & negatives. A total of 10 systems reviewed and were otherwise negative. Past Medical & Surgical Medical Problems: (1) Anxiety (2) Bipolar disorder (3) COPD, moderate (4) Fibromyalgia (5) GERD (gastroesophageal reflux disease) Surgical Problems: (1) History of tubal ligation (2) Lipoma tumor removal (3) Previous section Family History Diabetes mellitus Social History Smoking Status: Current Every Day Smoker Alcohol Use: none Drug Use: marijuana Marital Status: single Housing Status: lives alone Occupation Status: disabled Current/Historical Medications Scheduled Acetaminophen (Tylenol), 1,000 MG PO DAILY Calcium Carbonate-Vitamin D (Calcium 500+D), 1 TAB PO DAILY Calcium Polycarbophil (Fiber Tabs), 625 MG PO DAILY Cyanocobalamin (Vitamin B-12), 500 MCG PO DAILY Dicyclomine Hcl (Bentyl), 20 MG PO Q8 Esomeprazole Magnesium (Nexium), 20 MG PO QAM Ferrous Sulfate (Ferrous Sulfate), 325 MG PO DAILY Fish Oil ([place]-3), 1,000 MG PO QAM Gabapentin (Gabapentin), 300 MG PO TID Ibuprofen (Advil), 400 MG PO DAILY Trazodone Hcl (Trazodone), 50 MG PO HS Vitamin E (Vitamin E 400 Iu), 800 INTER.UNIT PO DAILY Scheduled PRN Alprazolam (Alprazolam), 0.5 MG PO TID PRN for Anxiety Cyclobenzaprine HCl (Cyclobenzaprine HCl), 10 MG PO HS PRN for Muscle Spasm Ipratropium-Albuterol (Combivent Respimat), 1 PUFF INH QID PRN for COPD Oxycodone/Acetaminophen 5MG/325MG (Percocet 5MG/325MG), 1 TABLET PO Q4H PRN for Pain Allergies Coded Allergies: Lorazepam (Verified Allergy, Mild, UNK, 10/24/16) BEE STING (Unverified Allergy, Unknown, "LUNGS CLOSE UP", 10/24/16) Diclofenac (Verified Allergy, Unknown, 10/24/16) Risperidone (Verified Allergy, Unknown, UNKNOWN, 10/24/16) Physical Exam Vital Signs Date Time Temp Pulse Resp B/P (MAP) Pulse Ox O2 Delivery O2 Flow Rate FiO2 10/24/16 15:46 70 18 149/85 96 10/24/16 15:00 71 20 182/96 99 Room Air 10/24/16 13:19 74 16 146/91 98 Room Air 10/24/16 12:05 97 18 149/66 91 Room Air 10/24/16 09:58 36.7 80 18 156/94 94 Room Air Physical Exam GENERAL: alert, well appearing, well nourished, no distress, non-toxic EYE EXAM: normal conjunctiva, PERRL and EOM's grossly intact OROPHARYNX: no exudate, no erythema, lips, buccal mucosa, and tongue normal and mucous membranes are moist NECK: supple, no nuchal rigidity, no adenopathy, non-tender LUNGS: Clear to auscultation. Normal chest wall mechanics HEART: no murmurs, S1 normal and S2 normal ABDOMEN: abdomen soft, LLQ tenderness, normo-active bowel sounds, no masses, no rebound or guarding. BACK: Back is symmetrical on inspection and there is no deformity, no midline tenderness, no CVA tenderness. SKIN: no rashes and no bruising UPPER EXTREMITIES: upper extremities are grossly normal. LOWER EXTREMITIES: No pitting edema. NEURO EXAM: Normal sensorium, cranial nerves II-XII grossly intact, normal speech, no gross weakness of arms, no gross weakness of legs. Medical Decision & Procedures ER Provider Diagnostic Interpretation: Radiology results have been interpreted by the radiologist and reviewed by me. ULTRASOUND OF THE PELVIS CLINICAL HISTORY: Left pelvic pain. COMPARISON STUDY: Pelvic CT dated 10/22/2016. TECHNIQUE: Real-time, grayscale, and color flow sonography of the pelvis is performed both transabdominally and endovaginally. Images are reviewed in the transverse and longitudinal planes. FINDINGS: Uterus: The uterus is normal in size and echotexture, measuring 6.4 x 3.3 x 5.5 cm. 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 An additional 1.5 cm fibroid is noted. A nabothian cyst is incidentally noted in the cervix. A section scar is suggested. Endometrium: The endometrium is normal in appearance, and the endometrial stripe is normal in thickness measuring up to 0.6 cm. Ovaries: The right ovary was not visualized. The left ovary appears atrophic and measures 1.2 x 0.9 x 1.1 cm. Normal Doppler waveforms are shown within the left ovary. Pelvis: There is no free fluid in the cul-de-sac. No concerning adnexal lesion is seen. IMPRESSION: 1. No acute sonographic abnormality is identified. 2. The left ovary is normal as visualized. 3. Suspect a fibroid and a lipoleiomyoma within the uterus. 4. The right ovary was not visualized. Electronically signed by: Narendra Guerrero M.D. 10/24/2016 12:06 PM Dictated Date/Time: 10/24/2016 12:03 PM Laboratory Results 10/24/16 10:47 Red Blood Count 4.73, Mean Corpuscular Volume 94.9, Mean Corpuscular Hemoglobin 31.9, Mean Corpuscular Hemoglobin Concent 33.6, Mean Platelet Volume 9.1, Neutrophils (%) (Auto) 75.1, Lymphocytes (%) (Auto) 19.2, Monocytes (%) (Auto) 4.3, Eosinophils (%) (Auto) 1.2, Basophils (%) (Auto) 0.1, Neutrophils # (Auto) 7.25, Lymphocytes # (Auto) 1.85, Monocytes # (Auto) 0.42, Eosinophils # (Auto) 0.12, Basophils # (Auto) 0.01 10/24/16 10:47 Test 10/24/16 10:30 10/24/16 10:47 10/24/16 11:15 10/24/16 15:06 Urine Color YELLOW Urine Appearance CLEAR (CLEAR) Urine pH 5.0 (4.5-7.5) Urine Specific [place] 1.027 (1.000-1.030) Urine Protein NEG (NEG) Urine Glucose (UA) NEG (NEG) Urine Ketones NEG (NEG) Urine Occult Blood 1+ (NEG) Urine Nitrite NEG (NEG) Urine Bilirubin NEG (NEG) Urine Urobilinogen NEG (NEG) Urine Leukocyte Esterase NEG (NEG) Urine WBC (Auto) 1-5 /hpf (0-5) Urine RBC (Auto) 0-4 /hpf (0-4) Urine Hyaline Casts (Auto) 1-5 /lpf (0-5) Urine Epithelial Cells (Auto) >30 /lpf (0-5) Urine Bacteria (Auto) 1+ (NEG) White Blood Count 9.66 K/uL (4.8-10.8) Red Blood Count 4.73 M/uL (4.2-5.4) Hemoglobin 15.1 g/dL (12.0-16.0) Hematocrit 44.9 % (37-47) Mean Corpuscular Volume 94.9 fL (80-100) Mean Corpuscular Hemoglobin 31.9 pg (25-34) Mean Corpuscular Hemoglobin Concent 33.6 g/dl (32-36) Platelet Count 335 K/uL (130-400) Mean Platelet Volume 9.1 fL (7.4-10.4) Neutrophils (%) (Auto) 75.1 % Lymphocytes (%) (Auto) 19.2 % Monocytes (%) (Auto) 4.3 % Eosinophils (%) (Auto) 1.2 % Basophils (%) (Auto) 0.1 % Neutrophils # (Auto) 7.25 K/uL (1.4-6.5) Lymphocytes # (Auto) 1.85 K/uL (1.2-3.4) Monocytes # (Auto) 0.42 K/uL (0.11-0.59) Eosinophils # (Auto) 0.12 K/uL (0-0.5) Basophils # (Auto) 0.01 K/uL (0-0.2) RDW Standard Deviation 47.5 fL (36.4-46.3) RDW Coefficient of Variation 13.6 % (11.5-14.5) Immature Granulocyte % (Auto) 0.1 % Immature Granulocyte # (Auto) 0.01 K/uL (0.00-0.02) Anion Gap 5.0 mmol/L (3-11) Est Creatinine Clear Calc Drug Dose 85.6 ml/min Estimated GFR () 112.5 Estimated GFR (Non- 97.1 BUN/Creatinine Ratio 22.2 (10-20) Calcium Level 9.2 mg/dl (8.5-10.1) Total Bilirubin 0.3 mg/dl (0.2-1) Aspartate Amino Transf (AST/SGOT) 10 U/L (15-37) Alanine Aminotransferase (ALT/SGPT) 20 U/L (12-78) Alkaline Phosphatase 113 U/L (45-117) Total Protein 7.0 gm/dl (6.4-8.2) Albumin 3.6 gm/dl (3.4-5.0) Globulin 3.4 gm/dl (2.5-4.0) Albumin/Globulin Ratio 1.1 (0.9-2) Lipase 92 U/L (73-393) Lactic Acid Level 2.1 mmol/L (0.4-2.0) Bedside Lactic Acid Venous 0.94 mmol/L (0.90-1.70) Laboratory results per my review. Medications Administered Medications (Trade) Dose Ordered Sig/Rashawn Route Start Time Stop Time Status Last Admin Dose Admin Sodium Chloride 1,000 ml @ 999 mls/hr Q1H1M STAT IV 10/24/16 11:03 10/24/16 12:03 DC 10/24/16 11:14 999 MLS/HR Ketorolac Tromethamine (Toradol Inj) 30 mg NOW STAT IV 10/24/16 11:03 10/24/16 11:06 DC 10/24/16 11:17 30 MG Dicyclomine HCl (Bentyl Tab) 20 mg NOW STAT PO 10/24/16 11:03 10/24/16 11:06 DC 10/24/16 11:22 20 MG Sodium Chloride 1,000 ml @ 999 mls/hr Q1H1M STAT IV 10/24/16 12:16 10/24/16 13:16 DC 10/24/16 12:16 999 MLS/HR Metoclopramide HCl (Reglan Inj) 10 mg NOW STAT IV 10/24/16 13:09 10/24/16 13:10 DC 10/24/16 13:15 10 MG Diphenhydramine HCl (Benadryl Inj) 25 mg NOW STAT IV 10/24/16 13:09 10/24/16 13:10 DC 10/24/16 13:15 25 MG Hydromorphone HCl (Dilaudid Inj) 0.5 mg NOW STAT IV 10/24/16 14:52 10/24/16 14:54 DC 10/24/16 14:57 0.5 MG ED Course 1047: The patient was evaluated in room C2B. A complete history and physical exam was performed. 1103: Bentyl 20 mg PO, Toradol 30 mg IV, NSS 1000 ml @ 999 mls/hr IV 1216: NSS 1000 ml @ 999 mls/hr IV 1253: I updated the patient on her results. 1309: Benadryl 25 mg IV, Reglan 10 mg IV 1446: I reassessed the patient at this time. She is feeling better and resting comfortably. I discussed the results and treatment plan with the patient. I answered all pertaining questions that she had. She expressed understanding and verbalized agreement. The patient will be discharged home. 1452: Dilaudid 0.5 mg IV Medical Decision Differential diagnoses includes but is not limited to gastritis, peptic ulcer disease, GERD, gallbladder disease, pancreatitis, small bowel obstruction, acute coronary syndrome, pericarditis, ischemic bowel, irritable bowel disease, irritable bowel syndrome, appendicitis, diverticulitis, malignancy, hernia, urinary tract infection, torsion, perforation, trauma, infectious. Medication Reconciliation: I attest that I have personally reviewed the patient' s current medication list. Blood pressure screening: Patient was found to have an elevated blood pressure and was referred to their primary doctor for recheck and further treatment. Patient well-appearing here despite complaints, vital signs stable throughout, labs and imaging reassuring. Given no change in labs, did not feel patient warranted repeat CT of the abdomen. Discussed her ultrasound results and need follow-up with [facility] regarding her fiber. Unclear fibroid contribute into some of her pain. Doubt diverticulitis, colitis, perforation, stone, UTI, torsion, [place]'s syndrome, volvulus. Patient exhibiting some drug-seeking behavior. Does chronically take Percocet for chronic back pain. Pt did report improvement here initially with nonnarcotic medications and then at time of dc requested narcotics due to worsening pain. Initial lactic acidosis likely secondary to dehydration, following IV fluid rehydration, lactic acid was improved. Doubt ischemic colitis, or vascular pathology. Discussed with her we would not give her additional prescriptions for narcotics at home. Patient written for additional Bentyl, advised close follow-up with family doctor and follow-up with GI who she has seen previously. Discussed symptoms to watch and return for, she verbalized understanding was agreeable with plan. [place] Drug Monitoring Program Search Results: patient reviewed within database Drug Monitoring Findings: Confirms patient's reported usage. Impression Primary Impression: Abdominal pain Additional Impression: Anxiety Scribe Attestation The scribe's documentation has been prepared under my direction and personally reviewed by me in its entirety. I confirm that the note above accurately reflects all work, treatment, procedures, and medical decision making performed by me. Departure Information Dispostion Home / Self-Care Prescriptions Dicyclomine Hcl (BENTYL) 20 Mg Tab 20 MG PO Q8 for Pain, #20 TAB Prov: Kate Torres, 10/24/16 Referrals No Doctor, Assigned (PCP) Forms HOME CARE DOCUMENTATION FORM, IMPORTANT VISIT INFORMATION Patient Instructions [facility] Additional Instructions Please call and follow up with your GI doctor. Please continue regular medications as prescribed. Please try to stay well-hydrated and he may eat as tolerated. If you develop any worsening pain, wrist black or bloody stools, develop nausea or vomiting, fevers or chills, increasing back pain, or you have any other new or concerning symptoms, please return to the emergency room. Problem Qualifiers Primary Impression: Abdominal pain Abdominal location: left lower quadrant Qualified Codes: R10.32 - Left lower quadrant pain
[2016-10-24] MEDS ORDERED: METOCLOPRAMIDE HCL INJ 5 MG/ML 2 ML VIAL IV STA (13:09)
[2016-10-24] MEDS ORDERED: DiphenhydrAMINE HCL 50 MG/ML VIAL IV STA (13:09)
[2016-10-24] MEDS ORDERED: HYDROmorphone INJ 0.5 MG/0.5 ML SYR IV STA (14:52)
[2016-10-24] MEDS ORDERED: DICY20TA35 PO (15:27)
[2016-10-24 15:46] VITALS: BP 149/85; PULSE 70; O2SAT 96
[2016-12-14] MEDS ORDERED: LVQ750 PO (07:41)
[2016-12-14] MEDS ORDERED: VNCS125 PO (07:41)
[2016-12-14] MEDS ORDERED: OXYC-57 PO (10:21)
== END 2016-10-24 15:47 | disposition home or self-care (01) ==
LOC: C.EDB 09:50 → C.EDC 15:47
DX: R10.32 Left lower quadrant pain (principal); F41.9 Anxiety disorder, unspecified; E86.0 Dehydration; M54.9 Dorsalgia, unspecified; G89.29 Other chronic pain; K64.8 Other hemorrhoids; F31.9 Bipolar disorder, unspecified; J44.9 Chronic obstructive pulmonary disease, unspecified; M79.7 Fibromyalgia; K21.9 Gastro-esophageal reflux disease without esophagitis; F17.200 Nicotine dependence, unspecified, uncomplicated; Z98.51 Tubal ligation status; Z83.3 Family history of diabetes mellitus

== ENCOUNTER 2016-12-11 11:55 | Inpatient (IN) | payer OTHER ==
[~2016-12-11] VITALS: Ht 160 cm; Wt 64.0 kg
[~2016-12-11 11:55] MED LIST changes: +ACET-1256 PO; +IBUP-1050 PO; -ONDA4TAB10 SL; -OXYC1TAB3 PO
[2016-12-11] MEDS ORDERED: SODIUM CHLORIDE 0.9% 1000ML 1,000 ML IV STA (12:26)
[2016-12-11] MEDS ORDERED: MoRPHine SULFATE 10 MG/ML CARP/VIAL IV STA ×2 (12:26→14:09)
[2016-12-11] MEDS ORDERED: ONDANSETRON INJ 2 MG/ML 2 ML VIAL IV STA (12:26)
[2016-12-11 12:39] LABS: BASO % 0.1 %; BASO ABS # 0.01 K/uL (0-0.2); COMPLETE YES; EOS % 0.5 %; HEMATOCRIT 47.8 % (37-47); IG% 0.2 %; LYMPH % 27.8 %; LYMPH ABS # 2.26 K/uL (1.2-3.4); MEAN CELL VOLUME 92.6 fL (80-100); MEAN CORPUSCULAR HEMOGLOBIN 30.4 pg (25-34); MEAN CORPUSCULAR HGB CONC 32.8 g/dl (32-36); MEAN PLATELET VOLUME 9.2 fL (7.4-10.4); MONO % 6.8 %; NEUT % 64.6 %; PLATELET COUNT 390 K/uL (130-400); RED BLOOD COUNT 5.16 M/uL (4.2-5.4); WHITE BLOOD COUNT 8.13 K/uL (4.8-10.8)
[2016-12-11] MEDS ORDERED: OPTIRAY 320 IV PRN (12:45)
[2016-12-11 12:46] LABS: BUN/CREATININE RATIO 22.9 (10-20); CREATININE 0.73 mg/dl (0.60-1.20); POTASSIUM 3.4 mmol/L (3.5-5.1)
[2016-12-11] MEDS ORDERED: DICY20TA10 PO (13:04)
[2016-12-11] MEDS ORDERED: ALBINS/ NEB (13:04)
[2016-12-11] MEDS ORDERED: RANI150T2 PO (13:04)
--- NOTE | 2016-12-11 15:28 | DIAGNOSTIC IMAGING REPORT ---
CT SCAN OF THE ABDOMEN AND PELVIS WITH IV CONTRAST CLINICAL HISTORY: Generalized abdominal pain. COMPARISON STUDY: Abdominal CT dated 10/22/2016. TECHNIQUE: Following the IV administration of 94 cc of Optiray 320, CT scan of the abdomen and pelvis is performed from the lung bases to the proximal femora. Images are reviewed in the axial, sagittal, and coronal planes. IV contrast was administered without complication. Automated dose control exposure was utilized. CT DOSE: 266.97 mGy.cm FINDINGS: Lung bases: The heart is normal in size and without pericardial effusion. There is patchy airspace consolidation at both lung bases. Trace pleural effusions are identified. A large calcified granuloma is again seen at the right lung base. There is a tiny hiatal hernia. Liver: The contrast-enhanced liver is normal in size, contour, and attenuation. Focal fatty infiltration is seen adjacent to falciform ligament. There is no intrahepatic biliary ductal dilatation. The hepatic veins and portal veins are patent. Gallbladder: Unremarkable. Spleen: Normal in size and attenuation. Pancreas: Unremarkable. Adrenal glands: Unremarkable. Kidneys: The contrast enhanced kidneys are normal in size and without hydronephrosis. A small extrarenal pelvis is noted on the right. The kidneys enhance symmetrically. A retroaortic left renal vein is incidentally noted. Abdominal vasculature: The abdominal aorta is normal in course and caliber noting moderate atherosclerotic calcification. Bowel: The no bowel obstruction is identified. There are scattered colonic diverticula without CT evidence of acute diverticulitis. The appendix is well-visualized and normal. Peritoneum: There is no intraperitoneal free air or abdominal ascites. There is a fat-containing umbilical hernia. Lymphadenopathy: None. Pelvic viscera: The bladder is normal in appearance. A 12 mm cystic focus is again seen in the left fundal region of the uterus on axial image #326. This is unchanged from previous. The uterus is otherwise normal in appearance. No adnexal lesion is seen. Numerous calcified phleboliths are observed in the pelvis. Skeletal structures: The skeletal structures are osteopenic. No lytic or blastic lesions are seen. There is lumbosacral spondylosis and scoliosis. IMPRESSION: 1. Patchy airspace consolidation is present at both lung bases, likely representing pneumonia/aspiration pneumonitis. Clinical correlation will be required. 2. There are no acute infectious or inflammatory findings in the abdomen or pelvis. 3. Trace pleural effusions. 4. Additional changes as above. Electronically signed by: Narendra Guerrero M.D. 12/11/2016 3:26 PM Dictated Date/Time: 12/11/2016 3:20 PM
[2016-12-11] MEDS ORDERED: VANCOMYCIN HCL 250 MG/5 ML SOLN PO ONE (16:30)
[2016-12-11] MEDS ORDERED: ONDANSETRON INJ 2 MG/ML 2 ML VIAL IV PRN (16:30)
[2016-12-11] MEDS ORDERED: POTASSIUM CHLORIDE 20 MEQ TABCR PO ONE (17:15)
[2016-12-11 17:20] VITALS: BP 165/103; PULSE 78; TEMP 36.5; O2SAT 97
[2016-12-11] MEDS ORDERED: MISC4CAP PO (17:20)
[2016-12-11] MEDS ORDERED: KETO10TA PO (17:20)
[2016-12-11] MEDS ORDERED: ALPRAZOLAM 0.5 MG TAB PO PRN (17:30)
[2016-12-11 17:40] VITALS: O2SAT 97; Ht 160 cm; Wt 64.0 kg
[2016-12-11 18:06] LABS: URINE APPEARANCE CLEAR (CLEAR); URINE BILIRUBIN NEG (NEG); URINE COLOR YELLOW; URINE NITRITE NEG (NEG); URINE PH 5.5 (4.5-7.5); URINE SPECIFIC GRAVITY > 1.045 (1.000-1.030); UROBILINOGEN NEG (NEG)
[2016-12-11 18:07] LABS: MANUAL MICROSCOPIC REQUIRED? NO; REVIEW REQ? NO
--- NOTE | 2016-12-11 18:22 | History and Physical ---
History & Physical Date & Time of Service: Dec 11, 2016 at 17:27 Chief Complaint: Severe Belly/Bowel Pain Primary Care Physician: Andre Mancera D.OMarco A History of Present Illness Source: patient, spouse, clinic records, hospital records 56 yo Female with PMH of recurrent C diff, tobacco abuse, COPD, panic disorder, fibromyalgia, GERD present to the ER for watery diarrhea associated with left side abdominal pain. Pt said that since March last year, she has been having recurrent C- diff. She said that 3 weeks ago she was in [place] for vacation. She said that she had a diarrhea and abdominal pain that started before she got to [place]. she went to the ER there and was Positive for C-diff. She was given Flagyl. she said that she has 5 tabs left to complete the course for Flagyl. She said that the diarrhea and the abdominal pain improved for a few days. she said the diarrhea and the left sided abdominal worsening then he went to see her PCP. HER PCP change her Nexium to Zantac. She said that again about few days ago she developed diarrhea associated worsening abdominal pain. She describes the left sided abdominal pain as cramping/spasm, intermittent, grade 10 of 10 today. She said that the pain is chronic but whenever that she has diarrhea/c diff, pain is worst. In the ER she had narcotic and fell asleep then few minutes later her saturation dropped. Denies any chest pain, palpitation, nausea, vomiting, dizziness, fever, chills and SOB. C- diff sent in the ER and was positive. CT abdomen done showed no acute infectious or inflammatory findings in the abdomen. there are Patchy airspace consolidation present at both lung bases, likely representing pneumonia/aspiration pneumonitis. Past Medical/Surgical History Medical Problems: (1) Anxiety Status: Chronic (2) Bipolar disorder Status: Chronic (3) COPD, moderate Status: Chronic (4) Fibromyalgia Status: Chronic (5) GERD (gastroesophageal reflux disease) Status: Chronic Surgical Problems: (1) History of tubal ligation Status: Resolved (2) Lipoma tumor removal Status: Resolved (3) Previous section Status: Resolved Family History Diabetes mellitus Social History Smoking Status: Current Every Day Smoker Drug Use: marijuana Marital Status: single Housing status: lives alone Occupational Status: disabled Immunizations History of Influenza Vaccine: N/A History of Tetanus Vaccine?: 2006 Tetanus Immunization Date: Oct 10, 2005 History of Pneumococcal: Unknown Pneumococcal Date: Feb 09, 2003 History of Hepatitis B Vaccine: Unknown Hepatitis Immunization Date: Jul 10, 2005 Multi-Drug Resistant Organisms History of MDRO: No Allergies Coded Allergies: Lorazepam (Verified Allergy, Mild, UNK, 12/11/16) BEE STING (Unverified Allergy, Unknown, "LUNGS CLOSE UP", 12/11/16) Diclofenac (Verified Allergy, Unknown, 12/11/16) Risperidone (Verified Allergy, Unknown, UNKNOWN, 12/11/16) Home Medications Scheduled Calcium Carbonate-Vitamin D (Calcium 500+D), 1 TAB PO DAILY Calcium Polycarbophil (Fiber Tabs), 625 MG PO DAILY Cyanocobalamin (Vitamin B-12), 500 MCG PO DAILY Dicyclomine Hcl (Dicyclomine Hcl), 1 TAB PO Q6H Ferrous Sulfate (Ferrous Sulfate), 325 MG PO DAILY Fish Oil ([place]-3), 1,000 MG PO QAM Gabapentin (Gabapentin), 300 MG PO TID Probiotic Product (Align), 1 PO DAILY Ranitidine HCl (Ranitidine HCl), 1 TAB PO BID Trazodone Hcl (Trazodone), 50 MG PO HS Vitamin E (Vitamin E 400 Iu), 800 INTER.UNIT PO DAILY Scheduled PRN Albuterol Sulf (Proventil 0.083% 2.5MG/3ML), 1 VIAL NEB Q6H PRN for SOB/Wheezing Alprazolam (Alprazolam), 0.5 MG PO TID PRN for Anxiety Cyclobenzaprine HCl (Cyclobenzaprine HCl), 10 MG PO HS PRN for Muscle Spasm Ipratropium-Albuterol (Combivent Respimat), 1 PUFF INH QID PRN for COPD Ketorolac Tromethamine (Toradol), 10 MG PO Q6 PRN for Pain Oxycodone/Acetaminophen 5MG/325MG (Percocet 5MG/325MG), 1 TABLET PO Q4H PRN for Pain Review of Systems Constitutional: No fever, No chills Eyes: No eye pain, No redness ENT: No nasal symptoms, No sore throat Respiratory: + cough, No sputum, No dyspnea at rest Cardiovascular: No chest pain, No claudication Abdomen: + pain, + diarrhea, No nausea, No vomiting Musculoskeletal: + joint pain, No calf pain Genitourinary - Female: No dysuria, No hematuria Neurologic: No memory loss, No weakness Psychiatric: + anxiety Endocrine: No excessive thirst Hematologic / Lymphatic: No abnormal bleeding/bruising Integumentary: No rash, No itch Physical Exam Vital Signs Date Time Temp Pulse Resp B/P (MAP) Pulse Ox O2 Delivery O2 Flow Rate FiO2 12/11/16 16:47 60 12/11/16 16:06 62 18 152/97 94 12/11/16 14:20 72 20 178/98 99 Nasal Cannula 2.0 12/11/16 13:37 72 15 169/94 99 12/11/16 12:42 71 12/11/16 12:36 61 18 158/88 98 Room Air 12/11/16 11:57 36.3 74 20 158/87 95 General Appearance: WD/WN, no apparent distress Head: normocephalic, atraumatic Eyes: PERRL, EOMI ENT: hearing grossly normal Neck: supple, no JVD Respiratory/Chest: no respiratory distress, no accessory muscle use, + rhonchi Cardiovascular: regular rate, rhythm, no JVD, no murmur Abdomen/GI: + tenderness, + pertinent finding (hyperactive bowel sound) Extremities/Musculoskelatal: no calf tenderness Neurologic/Psych: no motor/sensory deficits, alert, oriented x 3 Skin: normal color, warm/dry, no rash Diagnostics Laboratory Results Results Past 24 Hours Test 12/11/16 12:10 Range/Units White Blood Count 8.13 4.8-10.8 K/uL Red Blood Count 5.16 4.2-5.4 M/uL Hemoglobin 15.7 12.0-16.0 g/dL Hematocrit 47.8 37-47 % Mean Corpuscular Volume 92.6 80-100 fL Mean Corpuscular Hemoglobin 30.4 25-34 pg Mean Corpuscular Hemoglobin Concent 32.8 32-36 g/dl Platelet Count 390 130-400 K/uL Mean Platelet Volume 9.2 7.4-10.4 fL Neutrophils (%) (Auto) 64.6 % Lymphocytes (%) (Auto) 27.8 % Monocytes (%) (Auto) 6.8 % Eosinophils (%) (Auto) 0.5 % Basophils (%) (Auto) 0.1 % Neutrophils # (Auto) 5.25 1.4-6.5 K/uL Lymphocytes # (Auto) 2.26 1.2-3.4 K/uL Monocytes # (Auto) 0.55 0.11-0.59 K/uL Eosinophils # (Auto) 0.04 0-0.5 K/uL Basophils # (Auto) 0.01 0-0.2 K/uL RDW Standard Deviation 45.9 36.4-46.3 fL RDW Coefficient of Variation 13.5 11.5-14.5 % Immature Granulocyte % (Auto) 0.2 % Immature Granulocyte # (Auto) 0.02 0.00-0.02 K/uL Sodium Level 140 136-145 mmol/L Potassium Level 3.4 3.5-5.1 mmol/L Chloride Level 106 98-107 mmol/L Carbon Dioxide Level 25 21-32 mmol/L Anion Gap 9.0 3-11 mmol/L Blood Urea Nitrogen 17 7-18 mg/dl Creatinine 0.73 0.60-1.20 mg/dl Est Creatinine Clear Calc Drug Dose 76.5 ml/min Estimated GFR () 106.0 Estimated GFR (Non- 91.4 BUN/Creatinine Ratio 22.9 10-20 Random Glucose 131 70-99 mg/dl Calcium Level 10.0 8.5-10.1 mg/dl Total Bilirubin 0.4 0.2-1 mg/dl Direct Bilirubin 0.1 0-0.2 mg/dl Aspartate Amino Transf (AST/SGOT) 11 15-37 U/L Alanine Aminotransferase (ALT/SGPT) 17 12-78 U/L Alkaline Phosphatase 121 45-117 U/L Total Protein 8.4 6.4-8.2 gm/dl Albumin 3.6 3.4-5.0 gm/dl Lipase 89 73-393 U/L Microbiology Results 12/11/16 C.difficile Toxin B Gene (PCR) - Final, Complete Positive for C. difficile toxin B gene 12/11/16 Rotavirus Antigen - Final, Complete Negative for Rotavirus Antigen 12/11/16 WBC Smear - Final, Resulted 12/11/16 Shiga Toxin Test, Resulted Pending 12/11/16 Stool Culture, Resulted Pending Diagnostic Radiology CT SCAN OF THE ABDOMEN AND PELVIS WITH IV CONTRAST CLINICAL HISTORY: Generalized abdominal pain. COMPARISON STUDY: Abdominal CT dated 10/22/2016. TECHNIQUE: Following the IV administration of 94 cc of Optiray 320, CT scan of the abdomen and pelvis is performed from the lung bases to the proximal femora. Images are reviewed in the axial, sagittal, and coronal planes. IV contrast was administered without complication. Automated dose control exposure was utilized. CT DOSE: 266.97 mGy.cm FINDINGS: Lung bases: The heart is normal in size and without pericardial effusion. There is patchy airspace consolidation at both lung bases. Trace pleural effusions are identified. A large calcified granuloma is again seen at the right lung base. There is a tiny hiatal hernia. Liver: The contrast-enhanced liver is normal in size, contour, and attenuation. Focal fatty infiltration is seen adjacent to falciform ligament. There is no intrahepatic biliary ductal dilatation. The hepatic veins and portal veins are patent. Gallbladder: Unremarkable. Spleen: Normal in size and attenuation. Pancreas: Unremarkable. Adrenal glands: Unremarkable. Kidneys: The contrast enhanced kidneys are normal in size and without hydronephrosis. A small extrarenal pelvis is noted on the right. The kidneys enhance symmetrically. A retroaortic left renal vein is incidentally noted. Abdominal vasculature: The abdominal aorta is normal in course and caliber noting moderate atherosclerotic calcification. Bowel: The no bowel obstruction is identified. There are scattered colonic diverticula without CT evidence of acute diverticulitis. The appendix is well-visualized and normal. Peritoneum: There is no intraperitoneal free air or abdominal ascites. There is a fat-containing umbilical hernia. Lymphadenopathy: None. Pelvic viscera: The bladder is normal in appearance. A 12 mm cystic focus is again seen in the left fundal region of the uterus on axial image #326. This is unchanged from previous. The uterus is otherwise normal in appearance. No adnexal lesion is seen. Numerous calcified phleboliths are observed in the pelvis. Skeletal structures: The skeletal structures are osteopenic. No lytic or blastic lesions are seen. There is lumbosacral spondylosis and scoliosis. IMPRESSION: 1. Patchy airspace consolidation is present at both lung bases, likely representing pneumonia/aspiration pneumonitis. Clinical correlation will be required. 2. There are no acute infectious or inflammatory findings in the abdomen or pelvis. 3. Trace pleural effusions. 4. Additional changes as above. Electronically signed by: Narendra Guerrero M.D. 12/11/2016 3:26 PM Dictated Date/Time: 12/11/2016 3:20 PM Impression Assessment and Plan Recurrent C- Diff Left sided abdominal pain Pt said that Since Mar, she had 4 stools sample that are positive for Cdiff Stool check in the ER positive for Cdiff No leukocytosis CT abd showed no acute finding ER PA spoke to Dr. Upton that recommend to start on IV flagyl and PO vanco Continue pain control with morphine, probiotic Continue IVF, Zofran GI Consult Hypoxia Occurred in the ER after following asleep from getting narcotic Possible related to aspiration pneumonia VS aspiration pneumonitis CT abd showed patchy airspace consolidation is present at both lung bases Afebrile, no leukocytosis will hold on abx for now since pt showed no sign of pneumonia check CXR in am will monitor closely and start abx if spike fever COPD No signs of exacerbation Continue duoneb Tobacco abuse Counseling on smoking cessation Nicotine patch Anxiety Continue xanax prn Chronic pain syndrome On narcotic, gabapentin DVT px SCDs (Episodes of GI bleed about 2 months ago) CODE STATUS FULL CODE Level of Care Med/Surg Resuscitation Status FULL RESUSCITATION VTE Prophylaxis VTE Risk Assessment Done? Y/N: Yes Risk Level: Moderate Given or contraindicated: SCD's, Contraindicated
[2016-12-11 19:18] LABS: INR 1.1 (0.9-1.1); PROTHROMBIN TIME (PATIENT) 11.3 SECONDS (9.0-12.0)
[2016-12-11] MEDS: ALBUT/IPRATROP 3MG/0.5MG NEB 3 ML VIAL INH SCH (19:21)
[2016-12-11] MEDS: SODIUM CHLORIDE 0.9% 1000ML 1,000 ML IV SCH (19:22)
[2016-12-11 19:24] VITALS: PULSE 64; O2SAT 98
[2016-12-11 19:27] VITALS: BP 165/89
[2016-12-11] MEDS: RASPBERRY SYRUP 5 ML UDP PO SCH (19:34)
[2016-12-11] MEDS: VANCOMYCIN HCL 125 MG/2.5ML SOLN PO SCH (19:34)
[2016-12-11] MEDS: MoRPHine SULFATE 4 MG/ML 1 ML CARP\\VIAL IV PRN (19:35)
[2016-12-11 20:00] VITALS: O2SAT 98
[2016-12-11] MEDS: METRONIDAZOLE / NSS 500 MG in PREMIXED NSS 100 ML IV SCH (20:08)
[2016-12-11] MEDS: GABAPENTIN 300 MG CAP PO SCH (20:10)
[2016-12-11] MEDS: RANITIDINE HCL 150 MG TAB PO SCH (20:10)
--- NOTE | 2016-12-11 22:33 | EMERGENCY ROOM VISIT NOTE ---
ED Visit Note First contact with patient: 12:18 Chief Complaint: My lower abdomen hurts and is swollen. History of Present Illness: Ms. Mims is a 56-year-old white female who ambulates into the ED accompanied by a male friend complaining of left lower quadrant abdominal pain. Historically patient has a history of C. difficile and GERD and is status post tubal ligation and section. Patient reports she was first diagnosed with C. difficile in March 2016 and since that time she reports she has had 6 episodes of return of C. difficile, with the last event approximately 3 weeks ago. Patient reports she noted that she started experiencing left lower quadrant pain late last evening. She reports at that time it was mild. She reports taking ibuprofen and going to bed and be able to sleep all night. Approximately 4 hours before she arrived in the emergency department she awoke from sleep and when she started moving to get out of bed developed severe left lower quadrant pain. Since that time her pain has been constant. She describes her pain as a sharp and pressure sensation. She rates her discomfort 10/10. Her pain is nonradiating. Her pain worsens with palpation, movements from the lying to the sitting position. She has not identified any alleviating factors related to the pain. She has not taken any additional pain medication for her discomfort. Associated with her pain she reports she has had 3 episodes of loose stools and she has been nauseated and has had 2 episodes of vomiting. Additionally patient did report because of her pain this morning and her diarrhea she did take 500 mg of Flagyl by mouth that she had left over from her last exacerbation. She denies fevers, chills, sweats, skin eruptions, skin color changes, dizziness , lightheadedness, chest pain, shortness of breath, palpitations, orthopnea, dependent edema, previous clots, claudication, cramping, upper abdominal pain, recent antibiotic use, rectal bleeding, black/tarry stools, urinary symptoms, hematuria, vaginal bleeding, vaginal discharge. Review of Systems: As noted above in history of present illness. All body systems were reviewed and found to be negative as noted above. Past Medical History: COPD, fibromyalgia, anxiety, bipolar disorder and status post lipoma removal. Current Medications: Medications Dose Route/Sig Max Daily Dose Days Date Category Dose Instructions Toradol (Ketorolac Tromethamine) 10 Mg Tab 10 Mg PO Q6 PRN 12/11/16 Reported Align (Probiotic Product) 4 Mg Cap 1 PO DAILY 12/11/16 Reported Proventil 0.083% 2.5MG/3ML (Albuterol Sulf) 2.5 Mg/3 Ml Nebu 1 Vial NEB Q6H PRN 12/11/16 Reported Ranitidine HCl 150 Mg Tab 1 Tab PO BID 12/11/16 Reported Dicyclomine Hcl 20 Mg Tab 1 Tab PO Q6H 12/11/16 Reported Vitamin E 400 Iu (Vitamin E) 400 Unit Cap 800 Inter.unit PO DAILY 05/23/16 Reported Calcium 500+D (Calcium Carbonate-Vitamin D) 1 Tab Tab 1 Tab PO DAILY 05/23/16 Reported Cyclobenzaprine HCl 10 Mg Tab 10 Mg PO HS PRN 05/23/16 Reported Alprazolam 0.5 Mg Tab 0.5 Mg PO TID PRN 05/23/16 Reported Ferrous Sulfate 325 Mg Tab 325 Mg PO DAILY 08/15/15 Reported Fiber Tabs (Calcium Polycarbophil) 625 Mg Tab 625 Mg PO DAILY 04/13/15 Reported Percocet 5MG/325MG (Oxycodone/Acetaminophen) Tab 1 Tablet PO Q4H PRN 04/13/15 Reported MAXIMUM OF 5 TABLETS IN 24 HOURS Gabapentin 300 Mg Cap 300 Mg PO TID 11/04/13 Reported Vitamin B-12 (Cyanocobalamin) 500 Mcg [place] 500 Mcg PO DAILY 12/21/12 Reported Combivent Respimat (Ipratropium-Albuterol) 1 Aer Aer 1 Puff INH QID PRN 12/21/12 Reported [place]-3 (Fish Oil) 1 Ea Cap 1,000 Mg PO QAM 07/07/11 Reported Trazodone (Trazodone HCl) 50 Mg Tab 50 Mg PO HS 08/12/10 Reported Allergies to Medications: Lorazepam, Diclofenac, Risperidone. Social History: Patient's not employed; she feels safe in her home environment; she admits to tobacco use. Physical Examination: Vital Signs: Date Time Temp Pulse Resp B/P (MAP) Pulse Ox O2 Delivery O2 Flow Rate FiO2 12/11/16 16:06 62 18 152/97 94 12/11/16 14:20 72 20 178/98 99 Nasal Cannula 2.0 12/11/16 13:37 72 15 169/94 99 12/11/16 12:42 71 12/11/16 12:36 61 18 158/88 98 Room Air 12/11/16 11:57 36.3 74 20 158/87 95 GENERAL: 56-year-old female in moderate distress due to pain, nontoxic-appearing , afebrile and hemodynamically stable. NEUROLOGICAL: Awake, alert and oriented to person, place and time. Answering questions appropriately and following commands. Normal gait. Good hand eye coordination. No focal motor sensory deficits. SKIN: Warm, dry and pink. No soft tissue eruptions or trauma noted. HEENT: Atraumatic and normocephalic. PERRLA. Sclera white and conjunctiva pink. Airway patent. Pharynx is nonerythematous or edematous. Speech normal. No lymphadenopathy. Trachea midline. No jugular venous distention. BACK: No tenderness over the bony spine. Mild right sided CVA tenderness. THORAX: Lungs sounds demonstrate a few coarse rhonchi in the bases that clear with cough. Equal bilaterally with symmetrical chest wall. No wheezing, rales. No crepitus, tenderness, subcutaneous air or deformities noted. No increased respiratory effort or rate. HEART: Regular rate and rhythm. No gallops, rubs or murmurs are appreciated. ABDOMEN: Flat and soft with moderate tenderness in the left lower quadrant. Decreased bowel sounds in all quadrants. No guarding, rigidity or organomegaly. EXTREMITIES: Moves all extremities well on command and with purpose. All distal neurovascular statuses are intact and equal bilaterally. No calf tenderness or cords. ED Course: Patient is assessed as noted above per Patient's medication list was reviewed. Laboratory testing: Test 12/11/16 12:10 Range/Units White Blood Count 8.13 4.8-10.8 K/uL Red Blood Count 5.16 4.2-5.4 M/uL Hemoglobin 15.7 12.0-16.0 g/dL Hematocrit 47.8 37-47 % Mean Corpuscular Volume 92.6 80-100 fL Mean Corpuscular Hemoglobin 30.4 25-34 pg Mean Corpuscular Hemoglobin Concent 32.8 32-36 g/dl Platelet Count 390 130-400 K/uL Mean Platelet Volume 9.2 7.4-10.4 fL Neutrophils (%) (Auto) 64.6 % Lymphocytes (%) (Auto) 27.8 % Monocytes (%) (Auto) 6.8 % Eosinophils (%) (Auto) 0.5 % Basophils (%) (Auto) 0.1 % Neutrophils # (Auto) 5.25 1.4-6.5 K/uL Lymphocytes # (Auto) 2.26 1.2-3.4 K/uL Monocytes # (Auto) 0.55 0.11-0.59 K/uL Eosinophils # (Auto) 0.04 0-0.5 K/uL Basophils # (Auto) 0.01 0-0.2 K/uL RDW Standard Deviation 45.9 36.4-46.3 fL RDW Coefficient of Variation 13.5 11.5-14.5 % Immature Granulocyte % (Auto) 0.2 % Immature Granulocyte # (Auto) 0.02 0.00-0.02 K/uL Sodium Level 140 136-145 mmol/L Potassium Level 3.4 3.5-5.1 mmol/L Chloride Level 106 98-107 mmol/L Carbon Dioxide Level 25 21-32 mmol/L Anion Gap 9.0 3-11 mmol/L Blood Urea Nitrogen 17 7-18 mg/dl Creatinine 0.73 0.60-1.20 mg/dl Est Creatinine Clear Calc Drug Dose 76.5 ml/min Estimated GFR () 106.0 Estimated GFR (Non- 91.4 BUN/Creatinine Ratio 22.9 10-20 Random Glucose 131 70-99 mg/dl Calcium Level 10.0 8.5-10.1 mg/dl Total Bilirubin 0.4 0.2-1 mg/dl Direct Bilirubin 0.1 0-0.2 mg/dl Aspartate Amino Transf (AST/SGOT) 11 15-37 U/L Alanine Aminotransferase (ALT/SGPT) 17 12-78 U/L Alkaline Phosphatase 121 45-117 U/L Total Protein 8.4 6.4-8.2 gm/dl Albumin 3.6 3.4-5.0 gm/dl Lipase 89 73-393 U/L Hepatitis C Antibody Screen NEG NEG C.difficile Toxin B Gene (PCR): Positive for C. difficile toxin B gene Rotavirus Antigen: Negative for Rotavirus Antigen WBC Smear: Pending. Shiga Toxin Test: Pending Stool Culture: Pending Abdominal/Pelvic CT: Was reviewed by myself and read by the radiologist and shows patchy airspace consolidations in the bilateral lung bases representing pneumonia/aspiration pneumonitis. No acute infectious or inflammatory changes in the abdomen or pelvis. Trace pleural effusion no bowel obstruction. Scattered colonic diverticula without particular light is, normal-appearing appendix, no free air or abdominal ascites. Patient was hydrated with normal saline and received 6 mg of morphine IV for pain and 4 mg of Zofran IV for nausea. On reevaluation she was still complaining of severe pain that she was rating at 10/10 so she received an additional 6 mg of morphine IV. Shortly after receiving her second dose of morphine nursing personnel reported that her oxygen saturation decreased into the low 80s and she was placed on nasal cannula oxygen. Patient's case was reviewed with ; we agreed on diagnostic approach , treatment, disposition and plan. Patient's case was consulted with Dr. Upton, roadway designer; he recommended IV Flagyl and oral vancomycin. Patient was given 250 mg of vancomycin by mouth for antibiotic coverage; she had just taken her oral Flagyl prior to arrival at the hospital. On reevaluation of the patient she was taken off her oxygen and once again her oxygen saturation saturations decreased to 90% on room air. Patient's case was consulted with case management and Dr. Saleh, [facility] for medical observation/admission. Patient was educated about today's findings. Clinical Impression: Recurrent C. difficile. Hypoxia. Decision-Making: Initially my differential diagnosis I considered recurrent C. difficile, diverticulitis, perforated viscus, bowel obstruction and other causes. Disposition and Plan: Patient be brought in the hospital by the [facility]; please see their notes and orders for final disposition and plan.
[2016-12-11] MEDS: TRAZODONE HCL 50 MG TAB PO SCH (23:01)
[2016-12-12] VITALS (10 sets, daily range): BP systolic 117–147; BP diastolic 69–87; PULSE 65–81; TEMP 36.6–36.7; O2SAT 96–100
[2016-12-12] MEDS: METRONIDAZOLE / NSS 500 MG in PREMIXED NSS 100 ML IV SCH ×2 (04:20→12:54)
[2016-12-12] MEDS: MoRPHine SULFATE 4 MG/ML 1 ML CARP\\VIAL IV PRN ×4 (05:56→20:50)
[2016-12-12] MEDS: ALBUT/IPRATROP 3MG/0.5MG NEB 3 ML VIAL INH SCH ×4 (07:06→20:24)
[2016-12-12] MEDS: SODIUM CHLORIDE 0.9% 1000ML 1,000 ML IV SCH ×2 (07:09→21:06)
--- NOTE | 2016-12-12 07:09 | DIAGNOSTIC IMAGING REPORT ---
CHEST ONE VIEW PORTABLE HISTORY: 56 years-old Female Pneumonia COMPARISON: CT abdomen and pelvis 12/11/2016, Acute abdominal series radiographs 01/05/2016 TECHNIQUE: Portable upright AP view of the chest FINDINGS: Cardiomediastinal and hilar silhouettes are within normal limits. There is no pneumothorax. There is a small left pleural effusion with subsegmental bibasilar consolidative opacities. Calcified granuloma of the posterior basal segment right lower lobe is redemonstrated. Lungs are mildly hyperinflated. Moderate degenerative changes involving the right shoulder. IMPRESSION: Bibasilar subsegmental consolidative opacities with small left pleural effusion are suspicious for multifocal pneumonia or aspiration pneumonitis. These findings have progressed from comparison CT 12/11/2016. The above report was generated using voice recognition software. It may contain grammatical, syntax or spelling errors. Electronically signed by: Quinton Arce M.D. 12/12/2016 7:08 AM Dictated Date/Time: 12/12/2016 7:05 AM
[2016-12-12 07:36] LABS: BUN/CREATININE RATIO 16.3 (10-20); CALCIUM 8.7 mg/dl (8.5-10.1); CREATININE 0.63 mg/dl (0.60-1.20); POTASSIUM 3.4 mmol/L (3.5-5.1)
[2016-12-12 08:22] LABS: BASO % 0.1 %; BASO ABS # 0.01 K/uL (0-0.2); COMPLETE YES; EOS % 1.1 %; HEMATOCRIT 38.2 % (37-47); IG% 0.2 %; LYMPH % 26.1 %; LYMPH ABS # 2.23 K/uL (1.2-3.4); MEAN CELL VOLUME 94.3 fL (80-100); MEAN CORPUSCULAR HEMOGLOBIN 31.1 pg (25-34); MEAN PLATELET VOLUME 9.2 fL (7.4-10.4); MONO % 5.6 %; NEUT % 66.9 %; PLATELET COUNT 295 K/uL (130-400); RED BLOOD COUNT 4.05 M/uL (4.2-5.4); WHITE BLOOD COUNT 8.53 K/uL (4.8-10.8)
[2016-12-12] MEDS ORDERED: ENOXAPARIN 40 MG/0.4 ML SYR SQ SCH (09:00)
[2016-12-12] MEDS ORDERED: POTASSIUM CHLORIDE 20 MEQ TABCR PO ONE (09:00)
[2016-12-12] MEDS: NICOTINE 21 MG/24 HR TDSY TD SCH (09:00)
[2016-12-12] MEDS: RASPBERRY SYRUP 5 ML UDP PO SCH ×4 (09:07→20:44)
[2016-12-12] MEDS: VANCOMYCIN HCL 125 MG/2.5ML SOLN PO SCH ×4 (09:07→20:44)
[2016-12-12] MEDS: GABAPENTIN 300 MG CAP PO SCH ×3 (09:08→20:46)
[2016-12-12] MEDS: CALCIUM 600MG + VIT D 400 IU TAB PO SCH (09:08)
[2016-12-12] MEDS: LACTOBACILLUS ACIDOPHILUS (FLORANEX) TAB PO SCH (09:08)
[2016-12-12] MEDS: OMEGA-3 (PURIFIED FISH OIL) 1 GM CAP PO SCH (09:08)
[2016-12-12] MEDS: TOCOPHERYL, DL-ALPHA 400 INTER.UNIT CAP PO SCH (09:08)
[2016-12-12] MEDS: FERROUS SULFATE 325 MG TAB PO SCH (09:08)
[2016-12-12] MEDS: CALCIUM POLYCARBOPHIL 1 TAB PO SCH (09:08)
[2016-12-12] MEDS: RANITIDINE HCL 150 MG TAB PO SCH ×2 (09:08→20:45)
[2016-12-12] MEDS: CYANOCOBALAMIN 500 MCG TAB (VIT B-12) PO SCH (09:08)
[2016-12-12] MEDS ORDERED: NURSING VERBAL MED ORDER ONE (13:15)
--- NOTE | 2016-12-12 13:15 | Progress Note ---
Medicine Progress Note Date & Time of Visit: Dec 12, 2016 at 12:50. Subjective Pt was seen and examined Lying in bed complaint of LLQ abdominal pain Pt said that she was doing better last night with the pain med but she said this morning around 5am, her left abdominal pain got worst she said that she her diarrhea seems to improve she said that she is coughing some white phlegm denies any chest pain, palpitation, fever, sob and chills Objective Last 8 Hrs Date Time Temp Pulse Resp B/P (MAP) Pulse Ox O2 Delivery O2 Flow Rate FiO2 12/12/16 11:18 67 14 100 Nasal Cannula 1.0 12/12/16 08:00 97 Nasal Cannula 2.0 12/12/16 07:06 67 14 100 Nasal Cannula 2.0 12/12/16 07:01 36.6 65 16 147/87 (107) 97 Nasal Cannula 2.0 Physical Exam: General- No acute distress Head- atraumatic Eyes- PERRL, EOMI ENT- oropharynx clear Neck- supple, no JVD Lungs- crackles Heart- regular rhythm; no murmur Abdomen- normal bowel sounds, soft, nontender Extremities- no calf tenderness Neuro- alert, oriented x 3; PERRL, EOMI; no facial palsy Skin- warm & dry Laboratory Results: Last 24 Hours Test 12/11/16 17:40 12/11/16 18:58 12/12/16 06:31 Urine Color YELLOW Urine Appearance CLEAR Urine pH 5.5 Urine Specific [place] > 1.045 Urine Protein NEG Urine Glucose (UA) NEG Urine Ketones NEG Urine Occult Blood 1+ Urine Nitrite NEG Urine Bilirubin NEG Urine Urobilinogen NEG Urine Leukocyte Esterase NEG Urine WBC (Auto) 0 /hpf Urine RBC (Auto) 0-4 /hpf Urine Hyaline Casts (Auto) 0 /lpf Urine Epithelial Cells (Auto) 10-20 /lpf Urine Bacteria (Auto) NEG Prothrombin Time 11.3 SECONDS Prothromb Time International Ratio 1.1 White Blood Count 8.53 K/uL Red Blood Count 4.05 M/uL Hemoglobin 12.6 g/dL Hematocrit 38.2 % Mean Corpuscular Volume 94.3 fL Mean Corpuscular Hemoglobin 31.1 pg Mean Corpuscular Hemoglobin Concent 33.0 g/dl Platelet Count 295 K/uL Mean Platelet Volume 9.2 fL Neutrophils (%) (Auto) 66.9 % Lymphocytes (%) (Auto) 26.1 % Monocytes (%) (Auto) 5.6 % Eosinophils (%) (Auto) 1.1 % Basophils (%) (Auto) 0.1 % Neutrophils # (Auto) 5.70 K/uL Lymphocytes # (Auto) 2.23 K/uL Monocytes # (Auto) 0.48 K/uL Eosinophils # (Auto) 0.09 K/uL Basophils # (Auto) 0.01 K/uL RDW Standard Deviation 48.2 fL RDW Coefficient of Variation 13.9 % Immature Granulocyte % (Auto) 0.2 % Immature Granulocyte # (Auto) 0.02 K/uL Sodium Level 144 mmol/L Potassium Level 3.4 mmol/L Chloride Level 110 mmol/L Carbon Dioxide Level 26 mmol/L Anion Gap 8.0 mmol/L Blood Urea Nitrogen 10 mg/dl Creatinine 0.63 mg/dl Est Creatinine Clear Calc Drug Dose 88.7 ml/min Estimated GFR () 115.4 Estimated GFR (Non- 99.6 BUN/Creatinine Ratio 16.3 Random Glucose 112 mg/dl Calcium Level 8.7 mg/dl Assessment & Plan Recurrent C- Diff Left sided Lower abdominal pain Pt said that Since Mar, she had 4 stools sample that are positive for Cdiff Stool positive for Cdiff No leukocytosis CT abd showed no acute finding On Flagyl IV and PO vanco Will possible need a long taper course of PO Vanco for the recurrent C diff Continue pain control with morphine, probiotic Continue IVF, Zofran GI Consult Hypoxia Occurred in the ER after following asleep from getting narcotic Possible related to aspiration pneumonia VS aspiration pneumonitis CT abd showed patchy airspace consolidation is present at both lung bases Afebrile, no leukocytosis No abx was started last night since pt showed no sign of pneumonia Will be very careful with the narcotic COPD No signs of exacerbation Continue duoneb Possible Pneumonia CT abd showed patchy airspace consolidation is present at both lung bases CXR this morning showed bibasilar subsegmental consolidative opacities with small left pleural effusion are suspicious for multifocal pneumonia or aspiration pneumonitis. Progressed when compared with CT 12/11/2016. Will start on levaquin 750 mg daily for 5 days check sputum cx and blood cx Monitor CBC Tobacco abuse Counseling on smoking cessation Nicotine patch Anxiety Continue xanax prn Chronic pain syndrome On narcotic, gabapentin DVT px SCDs (Episodes of GI bleed about 2 months ago) CODE STATUS FULL CODE Consultants: Gastro Current Inpatient Medications: Current Inpatient Medications Medications (Trade) Dose Ordered Sig/Rashawn Route Start Time Stop Time Status Last Admin Dose Admin Ioversol (Optiray 320) 125 ml UD PRN IV 12/11/16 12:45 12/15/16 12:44 Ondansetron HCl (Zofran Inj) 4 mg Q6H PRN IV 12/11/16 16:30 01/10/17 16:29 Morphine Sulfate (MoRPHine SULFATE INJ) 4 mg Q4HWA PRN IV 12/11/16 17:15 12/25/16 17:14 12/12/16 10:04 4 MG Vancomycin HCl (Vancomycin Oral Soln) 125 mg QID PO 12/11/16 20:00 12/25/16 20:59 12/12/16 09:07 125 MG Metronidazole 500 mg/Prmx 100 ml @ 100 mls/hr Q8H IV 12/11/16 20:00 12/25/16 19:59 12/12/16 04:20 100 MLS/HR Alprazolam (Xanax Tab) 0.5 mg TID PRN PO 12/11/16 17:30 01/10/17 17:29 Calcium Polycarbophil (Fibercon Tab) 1 tab DAILY PO 12/12/16 09:00 01/11/17 08:59 12/12/16 09:08 1 TAB Ferrous Sulfate (Feosol Tab) 325 mg DAILY PO 12/12/16 09:00 01/11/17 08:59 12/12/16 09:08 325 MG Fish Oil ([place]-3 (Purified Fish Oil) Cap) 1 gm QAM PO 12/12/16 09:00 01/11/17 08:59 12/12/16 09:08 1 GM Gabapentin (Neurontin Cap) 300 mg TID PO 12/11/16 21:00 01/10/17 20:59 12/12/16 09:08 300 MG Ranitidine HCl (zANTac TAB) 150 mg BID PO 12/11/16 21:00 01/10/17 20:59 12/12/16 09:08 150 MG Trazodone HCl (Desyrel Tab) 50 mg HS PO 12/11/16 22:00 01/10/17 21:59 12/11/16 23:01 50 MG wv-Ifkrv-Caytyhhtmg Acetate (Vitamin E Cap) 800 interunit DAILY PO 12/12/16 09:00 01/11/17 08:59 12/12/16 09:08 800 INTERUNIT Calcium/Vitamin D (Caltrate Plus Tab) 1 tab DAILY PO 12/12/16 08:00 01/11/17 07:59 12/12/16 09:08 1 TAB Cyanocobalamin (Vitamin B-12 Tab) 500 mcg DAILY PO 12/12/16 08:00 01/11/17 07:59 12/12/16 09:08 500 MCG Lactobacillus Acidophilus (Floranex Tab) 4 tab DAILY PO 12/12/16 09:00 01/11/17 08:59 12/12/16 09:08 4 TAB Albuterol/ Ipratropium (Duoneb) 3 ml QIDR INH 12/11/16 20:00 01/10/17 19:59 12/12/16 11:17 3 ML Sodium Chloride 1,000 ml @ 75 mls/hr [id number] IV 12/11/16 17:30 01/10/17 17:29 12/12/16 07:09 75 MLS/HR Raspberry (Raspberry Syrup 5ml Cup) 5 ml QID PO 12/11/16 20:00 12/25/16 19:59 12/12/16 09:07 5 ML Nicotine (Nicoderm Cq 21MG Patch) 1 patch QAM TD 12/12/16 09:00 01/11/17 08:59 Miscellaneous (Remove Nicoderm Patch) 1 ea HS N/A 12/12/16 22:00 01/11/17 21:59
[2016-12-12] MEDS ORDERED: LEVOFLOXACIN 750 MG TAB PO ONE (13:45)
--- NOTE | 2016-12-12 14:14 | Gastrointestinal Consultation ---
Gastrointestinal Consultation Date of Consultation: Dec 12, 2016 Attending Physician: Sheyla Saleh Consulting Physician: Juan Pedersen Reason for Consultation: Recurrent Cdiff History of Present Illness Patient is a 56 year old female who presented to ED w c/o L sided abd pain. She reported that she had 7 episodes of Cdiff since last March. However I could only find two positive results between [facility] and [facility]. One on 05/23/16 and she was treated w Flagyl 500mg TID x 10 days. I was her in GI clinic in midst of her Flagyl treatment and she was symptomatically better at that time. And another positive Cdiff result at admission yesterday. She didn't have any loose stools, no n/v, fever, chills. CT abd/pelvis showed no infectious/inflammatory changes in the bowels, but concerning for pneumonia, or aspiration pneumonitis. She only had one stool, soft yesterday. Past Medical/Surgical History Medical Problems: (1) Abdominal pain Status: Acute (2) Colitis Status: Acute (3) Dehydration Status: Acute (4) Facial cellulitis Status: Acute (5) Gastroenteritis Status: Acute (6) Hyperthyroidism Status: Acute (7) Nausea Status: Acute (8) Weakness Status: Acute Past Medical History: Anxiety, bipolar, COPD, Fibromyalgia, GERD Past Surgical History: Tubal Ligation, Lipoma removal, Csection Family History Diabetes mellitus Social History Smoking Status: Current Every Day Smoker Alcohol Use: none Drug Use: marijuana Marital Status: single Housing Status: lives alone Occupation Status: disabled Allergies Coded Allergies: Lorazepam (Verified Allergy, Mild, UNK, 12/11/16) BEE STING (Unverified Allergy, Unknown, "LUNGS CLOSE UP", 12/11/16) Diclofenac (Verified Allergy, Unknown, 12/11/16) Risperidone (Verified Allergy, Unknown, UNKNOWN, 12/11/16) Current Medications Home Meds and Scripts Medications Dose Route/Sig Max Daily Dose Days Date Category Dose Instructions Toradol (Ketorolac Tromethamine) 10 Mg Tab 10 Mg PO Q6 PRN 12/11/16 Reported Align (Probiotic Product) 4 Mg Cap 1 PO DAILY 12/11/16 Reported Proventil 0.083% 2.5MG/3ML (Albuterol Sulf) 2.5 Mg/3 Ml Nebu 1 Vial NEB Q6H PRN 12/11/16 Reported Ranitidine HCl 150 Mg Tab 1 Tab PO BID 12/11/16 Reported Dicyclomine Hcl 20 Mg Tab 1 Tab PO Q6H 12/11/16 Reported Vitamin E 400 Iu (Vitamin E) 400 Unit Cap 800 Inter.unit PO DAILY 05/23/16 Reported Calcium 500+D (Calcium Carbonate-Vitamin D) 1 Tab Tab 1 Tab PO DAILY 05/23/16 Reported Cyclobenzaprine HCl 10 Mg Tab 10 Mg PO HS PRN 05/23/16 Reported Alprazolam 0.5 Mg Tab 0.5 Mg PO TID PRN 05/23/16 Reported Ferrous Sulfate 325 Mg Tab 325 Mg PO DAILY 08/15/15 Reported Fiber Tabs (Calcium Polycarbophil) 625 Mg Tab 625 Mg PO DAILY 04/13/15 Reported Percocet 5MG/325MG (Oxycodone/Acetaminophen) Tab 1 Tablet PO Q4H PRN 04/13/15 Reported MAXIMUM OF 5 TABLETS IN 24 HOURS Gabapentin 300 Mg Cap 300 Mg PO TID 11/04/13 Reported Vitamin B-12 (Cyanocobalamin) 500 Mcg [place] 500 Mcg PO DAILY 12/21/12 Reported Combivent Respimat (Ipratropium-Albuterol) 1 Aer Aer 1 Puff INH QID PRN 12/21/12 Reported [place]-3 (Fish Oil) 1 Ea Cap 1,000 Mg PO QAM 07/07/11 Reported Trazodone (Trazodone HCl) 50 Mg Tab 50 Mg PO HS 08/12/10 Reported Review of Systems Constitutional: No fever, No chills Respiratory: No cough, No shortness of breath Cardiac: No chest pain Abdomen: + pain, No nausea, No vomiting, No diarrhea, No GI bleeding Physical Exam Date Time Temp Pulse Resp B/P (MAP) Pulse Ox O2 Delivery O2 Flow Rate FiO2 12/12/16 11:18 67 14 100 Nasal Cannula 1.0 12/12/16 08:00 97 Nasal Cannula 2.0 12/12/16 07:06 67 14 100 Nasal Cannula 2.0 12/12/16 07:01 36.6 65 16 147/87 (107) 97 Nasal Cannula 2.0 12/12/16 00:07 36.7 66 18 117/69 (85) 96 Nasal Cannula 2.0 12/12/16 00:00 98 Room Air 2.0 Nasal Cannula 12/11/16 20:00 98 Room Air 2.0 Nasal Cannula 12/11/16 19:27 165/89 (114) 12/11/16 19:24 64 14 98 Nasal Cannula 2.0 12/11/16 17:40 97 Nasal Cannula 2.0 12/11/16 17:20 36.5 78 16 165/103 (123) 97 Nasal Cannula 2.0 12/11/16 16:47 60 12/11/16 16:06 62 18 152/97 94 12/11/16 14:20 72 20 178/98 99 Nasal Cannula 2.0 General Appearance: WD/WN, no apparent distress Eyes: normal inspection, PERRL, EOMI Neck: supple, no JVD, trachea midline Respiratory/Chest: no respiratory distress, no accessory muscle use, + decreased breath sounds Cardiovascular: regular rate, rhythm, no gallop, no murmur Abdomen: normal bowel sounds, soft, + tenderness (LLQ) Extremities: normal inspection, no pedal edema, no calf tenderness Neurologic/Psych: alert, normal mood/affect, oriented x 3 Skin: normal color, no jaundice, no rash Laboratory Results Last 24 Hours Test 12/11/16 17:40 12/11/16 18:58 12/12/16 06:31 Urine Color YELLOW Urine Appearance CLEAR Urine pH 5.5 Urine Specific [place] > 1.045 Urine Protein NEG Urine Glucose (UA) NEG Urine Ketones NEG Urine Occult Blood 1+ Urine Nitrite NEG Urine Bilirubin NEG Urine Urobilinogen NEG Urine Leukocyte Esterase NEG Urine WBC (Auto) 0 /hpf Urine RBC (Auto) 0-4 /hpf Urine Hyaline Casts (Auto) 0 /lpf Urine Epithelial Cells (Auto) 10-20 /lpf Urine Bacteria (Auto) NEG Prothrombin Time 11.3 SECONDS Prothromb Time International Ratio 1.1 White Blood Count 8.53 K/uL Red Blood Count 4.05 M/uL Hemoglobin 12.6 g/dL Hematocrit 38.2 % Mean Corpuscular Volume 94.3 fL Mean Corpuscular Hemoglobin 31.1 pg Mean Corpuscular Hemoglobin Concent 33.0 g/dl Platelet Count 295 K/uL Mean Platelet Volume 9.2 fL Neutrophils (%) (Auto) 66.9 % Lymphocytes (%) (Auto) 26.1 % Monocytes (%) (Auto) 5.6 % Eosinophils (%) (Auto) 1.1 % Basophils (%) (Auto) 0.1 % Neutrophils # (Auto) 5.70 K/uL Lymphocytes # (Auto) 2.23 K/uL Monocytes # (Auto) 0.48 K/uL Eosinophils # (Auto) 0.09 K/uL Basophils # (Auto) 0.01 K/uL RDW Standard Deviation 48.2 fL RDW Coefficient of Variation 13.9 % Immature Granulocyte % (Auto) 0.2 % Immature Granulocyte # (Auto) 0.02 K/uL Sodium Level 144 mmol/L Potassium Level 3.4 mmol/L Chloride Level 110 mmol/L Carbon Dioxide Level 26 mmol/L Anion Gap 8.0 mmol/L Blood Urea Nitrogen 10 mg/dl Creatinine 0.63 mg/dl Est Creatinine Clear Calc Drug Dose 88.7 ml/min Estimated GFR () 115.4 Estimated GFR (Non- 99.6 BUN/Creatinine Ratio 16.3 Random Glucose 112 mg/dl Calcium Level 8.7 mg/dl Impression Patient is a 56 year old female w recurrent Cdiff, abd pain but no diarrhea per her report. She said it's her 7th episode since last March though I could only find 2 positive Cdiff between [facility] and [facility]: one on 04/2016, second during this admission. CT w/o evidence of colitis or abscess. Last colonoscopy 01/2016 w signs of diverticulosis. Plan - Plan for Vancomycin taper: 125mg QID x 14 days, 125mg BID x 7 days, 125mg daily x 7 days, 125mg every other day x 7 days, 125mg every 3 days x 14 days. - Regular diet - If another recurrence may consider fecal transplantation. ATTESTATION: I have performed a history and physical examination of this patient and reviewed the electronic record. Specifically, on physical examination mild LLQ tenderness. I have discussed the case with ADRIAN Perez. The above note reflects my findings, conclusions, and recommendations. Juan Pedersen MD
[2016-12-12] MEDS: TRAZODONE HCL 50 MG TAB PO SCH (20:45)
[2016-12-13] VITALS (10 sets, daily range): BP systolic 117–120; BP diastolic 70–76; PULSE 65–73; TEMP 36.6–37; O2SAT 93–98
[2016-12-13] MEDS: MoRPHine SULFATE 4 MG/ML 1 ML CARP\\VIAL IV PRN ×5 (00:46→17:14)
[2016-12-13] MEDS: ALBUT/IPRATROP 3MG/0.5MG NEB 3 ML VIAL INH SCH ×4 (07:05→19:05)
[2016-12-13 07:45] LABS: HEMATOCRIT 37.5 % (37-47); MEAN CELL VOLUME 95.4 fL (80-100); MEAN CORPUSCULAR HEMOGLOBIN 30.5 pg (25-34); MEAN PLATELET VOLUME 9.1 fL (7.4-10.4); PLATELET COUNT 310 K/uL (130-400); RED BLOOD COUNT 3.93 M/uL (4.2-5.4); WHITE BLOOD COUNT 7.08 K/uL (4.8-10.8)
[2016-12-13] MEDS: NICOTINE 21 MG/24 HR TDSY TD SCH (08:00)
[2016-12-13 08:13] LABS: BUN/CREATININE RATIO 15.7 (10-20); CALCIUM 8.7 mg/dl (8.5-10.1); CREATININE 0.56 mg/dl (0.60-1.20); MAGNESIUM 1.9 mg/dl (1.8-2.4); POTASSIUM 4.1 mmol/L (3.5-5.1)
[2016-12-13] MEDS: VANCOMYCIN HCL 125 MG/2.5ML SOLN PO SCH ×4 (08:14→20:02)
[2016-12-13] MEDS: RASPBERRY SYRUP 5 ML UDP PO SCH ×4 (08:14→20:02)
[2016-12-13] MEDS: OMEGA-3 (PURIFIED FISH OIL) 1 GM CAP PO SCH (08:14)
[2016-12-13] MEDS: CALCIUM 600MG + VIT D 400 IU TAB PO SCH (08:15)
[2016-12-13] MEDS: TOCOPHERYL, DL-ALPHA 400 INTER.UNIT CAP PO SCH (08:15)
[2016-12-13] MEDS: GABAPENTIN 300 MG CAP PO SCH ×3 (08:15→20:04)
[2016-12-13] MEDS: SODIUM CHLORIDE 0.9% 1000ML 1,000 ML IV SCH (08:15)
[2016-12-13] MEDS: RANITIDINE HCL 150 MG TAB PO SCH ×2 (08:15→21:15)
[2016-12-13] MEDS: FERROUS SULFATE 325 MG TAB PO SCH (08:15)
[2016-12-13] MEDS: CALCIUM POLYCARBOPHIL 1 TAB PO SCH (08:15)
[2016-12-13] MEDS: CYANOCOBALAMIN 500 MCG TAB (VIT B-12) PO SCH (08:15)
[2016-12-13] MEDS: LACTOBACILLUS ACIDOPHILUS (FLORANEX) TAB PO SCH (08:15)
[2016-12-13] MEDS ORDERED: DICYCLOMINE HCL 20 MG TAB PO ONE (09:49)
--- NOTE | 2016-12-13 09:54 | Gastroenterology Progress Note ---
Progress Note Date of Service: Dec 13, 2016 Subjective Pt evaluation today including: conversation w/ patient, physical exam, chart review, lab review, review of inpatient medication list Pt c/o LLQ abd pain, soft formed stool this AM. Denies any n/v. Review of Systems Constitutional: No fever, No chills Respiratory: + cough, No shortness of breath Cardiac: No chest pain Abdomen: + pain, No nausea, No vomiting, No diarrhea Medications Current Inpatient Medications Medications (Trade) Dose Ordered Sig/Rashawn Route Start Time Stop Time Status Last Admin Dose Admin Ioversol (Optiray 320) 125 ml UD PRN IV 12/11/16 12:45 12/15/16 12:44 Ondansetron HCl (Zofran Inj) 4 mg Q6H PRN IV 12/11/16 16:30 01/10/17 16:29 Vancomycin HCl (Vancomycin Oral Soln) 125 mg QID PO 12/11/16 20:00 12/25/16 20:59 12/13/16 08:14 125 MG Alprazolam (Xanax Tab) 0.5 mg TID PRN PO 12/11/16 17:30 01/10/17 17:29 Calcium Polycarbophil (Fibercon Tab) 1 tab DAILY PO 12/12/16 09:00 01/11/17 08:59 12/13/16 08:15 1 TAB Ferrous Sulfate (Feosol Tab) 325 mg DAILY PO 12/12/16 09:00 01/11/17 08:59 12/13/16 08:15 325 MG Fish Oil ([place]-3 (Purified Fish Oil) Cap) 1 gm QAM PO 12/12/16 09:00 01/11/17 08:59 12/13/16 08:14 1 GM Gabapentin (Neurontin Cap) 300 mg TID PO 12/11/16 21:00 01/10/17 20:59 12/13/16 08:15 300 MG Ranitidine HCl (zANTac TAB) 150 mg BID PO 12/11/16 21:00 01/10/17 20:59 12/13/16 08:15 150 MG Trazodone HCl (Desyrel Tab) 50 mg HS PO 12/11/16 22:00 01/10/17 21:59 12/12/16 20:45 50 MG hb-Kkezk-Rgohwbrjic Acetate (Vitamin E Cap) 800 interunit DAILY PO 12/12/16 09:00 01/11/17 08:59 12/13/16 08:15 800 INTERUNIT Calcium/Vitamin D (Caltrate Plus Tab) 1 tab DAILY PO 12/12/16 08:00 01/11/17 07:59 12/13/16 08:15 1 TAB Cyanocobalamin (Vitamin B-12 Tab) 500 mcg DAILY PO 12/12/16 08:00 01/11/17 07:59 12/13/16 08:15 500 MCG Lactobacillus Acidophilus (Floranex Tab) 4 tab DAILY PO 12/12/16 09:00 01/11/17 08:59 12/13/16 08:15 4 TAB Albuterol/ Ipratropium (Duoneb) 3 ml QIDR INH 12/11/16 20:00 01/10/17 19:59 12/13/16 07:05 3 ML Sodium Chloride 1,000 ml @ 75 mls/hr [id number] IV 12/11/16 17:30 01/10/17 17:29 12/13/16 08:15 75 MLS/HR Raspberry (Raspberry Syrup 5ml Cup) 5 ml QID PO 12/11/16 20:00 12/25/16 19:59 12/13/16 08:14 5 ML Nicotine (Nicoderm Cq 21MG Patch) 1 patch QAM TD 12/12/16 09:00 01/11/17 08:59 Miscellaneous (Remove Nicoderm Patch) 1 ea HS N/A 12/12/16 22:00 01/11/17 21:59 Levofloxacin (Levaquin Tab) 750 mg DAILY@11 PO 12/13/16 11:00 12/19/16 10:59 Morphine Sulfate (MoRPHine SULFATE INJ) 4 mg Q3H PRN IV 12/12/16 13:30 12/26/16 13:29 12/13/16 09:07 4 MG Objective Vital Signs Date Time Temp Pulse Resp B/P (MAP) Pulse Ox O2 Delivery O2 Flow Rate FiO2 12/13/16 07:30 36.6 65 19 117/75 (89) 98 Nasal Cannula 2.0 12/13/16 07:06 68 16 98 Nasal Cannula 2.0 12/13/16 00:10 36.7 68 18 120/70 (87) 97 Nasal Cannula 2.0 12/13/16 00:00 98 Nasal Cannula 2.0 12/12/16 20:20 81 16 98 Nasal Cannula 2.0 12/12/16 16:00 97 Nasal Cannula 2.0 12/12/16 15:53 36.7 77 16 125/74 (91) 97 Nasal Cannula 2.0 12/12/16 15:11 74 14 100 Nasal Cannula 2.0 12/12/16 11:18 67 14 100 Nasal Cannula 1.0 Physical Exam General Appearance: WD/WN, no apparent distress Eyes: normal inspection, PERRL, EOMI Neck: supple, no JVD, trachea midline Respiratory/Chest: no respiratory distress, no accessory muscle use, + decreased breath sounds (on RLL bases ) Cardiovascular: regular rate, rhythm, no gallop, no murmur Abdomen: normal bowel sounds, soft, + tenderness (LLQ) Extremities: normal inspection, no pedal edema, no calf tenderness Neurologic/Psych: alert, normal mood/affect, oriented x 3 Skin: normal color, no jaundice, no rash Laboratory Results Last 24 Hours Test 12/13/16 07:08 White Blood Count 7.08 K/uL Red Blood Count 3.93 M/uL Hemoglobin 12.0 g/dL Hematocrit 37.5 % Mean Corpuscular Volume 95.4 fL Mean Corpuscular Hemoglobin 30.5 pg Mean Corpuscular Hemoglobin Concent 32.0 g/dl RDW Standard Deviation 48.4 fL RDW Coefficient of Variation 13.8 % Platelet Count 310 K/uL Mean Platelet Volume 9.1 fL Sodium Level 143 mmol/L Potassium Level 4.1 mmol/L Chloride Level 110 mmol/L Carbon Dioxide Level 30 mmol/L Anion Gap 3.0 mmol/L Blood Urea Nitrogen 9 mg/dl Creatinine 0.56 mg/dl Est Creatinine Clear Calc Drug Dose 99.8 ml/min Estimated GFR () 120.0 Estimated GFR (Non- 103.5 BUN/Creatinine Ratio 15.7 Random Glucose 92 mg/dl Calcium Level 8.7 mg/dl Magnesium Level 1.9 mg/dl Assessment and Plan Patient is a 56 year old female w recurrent Cdiff, abd pain but no diarrhea per her report. She said it's her 7th episode since last March though I could only find 2 positive Cdiff between [facility] and [facility]: one on 04/2016, second during this admission. CT w/o evidence of colitis or abscess. Last colonoscopy 01/2016 w signs of diverticulosis. Continues to have LLQ abd pain though stools are now formed up. No rectal bleeding. Plans - Plan for Vancomycin taper: 125mg QID x 14 days, 125mg BID x 7 days, 125mg daily x 7 days, 125mg every other day x 7 days, 125mg every 3 days x 14 days. - Regular diet - If another recurrence may consider fecal transplantation. - Add Bentyl 20mg BID; try to avoid narcotics (she's been using Morphine) ATTESTATION: I have performed a history and physical examination of this patient and reviewed the electronic record. Specifically, on history there is significant improvement in diarrhea and abdominal pain. I have discussed the case with ADRIAN Perez. The above note reflects my findings, conclusions, and recommendations. Juan Pedersen MD
[2016-12-13] MEDS ORDERED: SODIUM CHLORIDE 0.65% NA SOLN 45 ML (OCEAN) ONE (11:13)
[2016-12-13] MEDS: LEVOFLOXACIN 750 MG TAB PO SCH (11:15)
[2016-12-13] MEDS ORDERED: SODIUM CHLORIDE 0.65% NA SOLN 45 ML (OCEAN) PRN (11:15)
--- NOTE | 2016-12-13 19:44 | Progress Note ---
Medicine Progress Note Date & Time of Visit: Dec 13, 2016 at 19:39. Subjective Pt was seen and examined Sitting in bed comfortable with no distress She said that she feels better today she said that her breathing is better she is breathing fine on RA Denies any chest pain, palpitation and SOB Objective Last 8 Hrs Date Time Temp Pulse Resp B/P (MAP) Pulse Ox O2 Delivery O2 Flow Rate FiO2 12/13/16 19:05 68 16 94 Room Air 12/13/16 16:47 37.0 72 18 118/76 (90) 96 Room Air 12/13/16 15:11 70 16 95 Room Air Physical Exam: General- No acute distress Head- atraumatic Eyes- PERRL, EOMI ENT- oropharynx clear Neck- supple, no JVD Lungs- crackles Heart- regular rhythm; no murmur Abdomen- normal bowel sounds, soft, nontender Extremities- no calf tenderness Neuro- alert, oriented x 3; PERRL, EOMI; no facial palsy Skin- warm & dry Laboratory Results: Last 24 Hours Test 12/13/16 07:08 White Blood Count 7.08 K/uL Red Blood Count 3.93 M/uL Hemoglobin 12.0 g/dL Hematocrit 37.5 % Mean Corpuscular Volume 95.4 fL Mean Corpuscular Hemoglobin 30.5 pg Mean Corpuscular Hemoglobin Concent 32.0 g/dl RDW Standard Deviation 48.4 fL RDW Coefficient of Variation 13.8 % Platelet Count 310 K/uL Mean Platelet Volume 9.1 fL Sodium Level 143 mmol/L Potassium Level 4.1 mmol/L Chloride Level 110 mmol/L Carbon Dioxide Level 30 mmol/L Anion Gap 3.0 mmol/L Blood Urea Nitrogen 9 mg/dl Creatinine 0.56 mg/dl Est Creatinine Clear Calc Drug Dose 99.8 ml/min Estimated GFR () 120.0 Estimated GFR (Non- 103.5 BUN/Creatinine Ratio 15.7 Random Glucose 92 mg/dl Calcium Level 8.7 mg/dl Magnesium Level 1.9 mg/dl Assessment & Plan Recurrent C- Diff Left sided Lower abdominal pain Pt said that Since Mar, she had 4 stools sample that are positive for Cdiff Stool positive for Cdiff No leukocytosis CT abd showed no acute finding On Flagyl IV and PO vanco Will possible need a long taper course of PO Vanco for the recurrent C diff Continue pain control with morphine, probiotic Continue IVF, Zofran GI Consult 12/13 No diarrhea today flagyl discontinued Continue vanco tolerated regular diet D/C IVF pain control ( will change to PO) Gastro on board recommended a long taper course vanco po Vancomycin taper: 125mg QID x 14 days, 125mg BID x 7 days, 125mg daily x 7 days , 125mg every other day x 7 days, 125mg every 3 days x 14 days. Bentyl adding Hypoxia Occurred in the ER after following asleep from getting narcotic Possible related to aspiration pneumonia VS aspiration pneumonitis CT abd showed patchy airspace consolidation is present at both lung bases Afebrile, no leukocytosis No abx was started last night since pt showed no sign of pneumonia Will be very careful with the narcotic Resolved COPD No signs of exacerbation Continue duoneb Pneumonia CT abd showed patchy airspace consolidation is present at both lung bases CXR this morning showed bibasilar subsegmental consolidative opacities with small left pleural effusion are suspicious for multifocal pneumonia or aspiration pneumonitis. Progressed when compared with CT 12/11/2016. Will start on levaquin 750 mg daily for 5 days check sputum cx and blood cx Monitor CBC 12/13 cough Improved significantly Sputum cx growth moderate normal jadyn blood cx pending no leukocytosis continue levaquin Tobacco abuse Counseling on smoking cessation Nicotine patch Anxiety Continue xanax prn Chronic pain syndrome On narcotic, gabapentin DVT px SCDs (Episodes of GI bleed about 2 months ago) CODE STATUS FULL CODE Consultants: Gastro Current Inpatient Medications: Current Inpatient Medications Medications (Trade) Dose Ordered Sig/Rashawn Route Start Time Stop Time Status Last Admin Dose Admin Ioversol (Optiray 320) 125 ml UD PRN IV 12/11/16 12:45 12/15/16 12:44 Ondansetron HCl (Zofran Inj) 4 mg Q6H PRN IV 12/11/16 16:30 01/10/17 16:29 Vancomycin HCl (Vancomycin Oral Soln) 125 mg QID PO 12/11/16 20:00 12/25/16 20:59 12/13/16 17:17 125 MG Alprazolam (Xanax Tab) 0.5 mg TID PRN PO 12/11/16 17:30 01/10/17 17:29 Calcium Polycarbophil (Fibercon Tab) 1 tab DAILY PO 12/12/16 09:00 01/11/17 08:59 12/13/16 08:15 1 TAB Ferrous Sulfate (Feosol Tab) 325 mg DAILY PO 12/12/16 09:00 01/11/17 08:59 12/13/16 08:15 325 MG Fish Oil ([place]-3 (Purified Fish Oil) Cap) 1 gm QAM PO 12/12/16 09:00 01/11/17 08:59 12/13/16 08:14 1 GM Gabapentin (Neurontin Cap) 300 mg TID PO 12/11/16 21:00 01/10/17 20:59 12/13/16 13:25 300 MG Ranitidine HCl (zANTac TAB) 150 mg BID PO 12/11/16 21:00 01/10/17 20:59 12/13/16 08:15 150 MG Trazodone HCl (Desyrel Tab) 50 mg HS PO 12/11/16 22:00 01/10/17 21:59 12/12/16 20:45 50 MG jl-Kthic-Ybtzwkgigm Acetate (Vitamin E Cap) 800 interunit DAILY PO 12/12/16 09:00 01/11/17 08:59 12/13/16 08:15 800 INTERUNIT Calcium/Vitamin D (Caltrate Plus Tab) 1 tab DAILY PO 12/12/16 08:00 01/11/17 07:59 12/13/16 08:15 1 TAB Cyanocobalamin (Vitamin B-12 Tab) 500 mcg DAILY PO 12/12/16 08:00 01/11/17 07:59 12/13/16 08:15 500 MCG Lactobacillus Acidophilus (Floranex Tab) 4 tab DAILY PO 12/12/16 09:00 01/11/17 08:59 12/13/16 08:15 4 TAB Albuterol/ Ipratropium (Duoneb) 3 ml QIDR INH 12/11/16 20:00 01/10/17 19:59 12/13/16 19:05 3 ML Sodium Chloride 1,000 ml @ 75 mls/hr [id number] IV 12/11/16 17:30 01/10/17 17:29 12/13/16 08:15 75 MLS/HR Raspberry (Raspberry Syrup 5ml Cup) 5 ml QID PO 12/11/16 20:00 12/25/16 19:59 12/13/16 17:18 5 ML Nicotine (Nicoderm Cq 21MG Patch) 1 patch QAM TD 12/12/16 09:00 01/11/17 08:59 Miscellaneous (Remove Nicoderm Patch) 1 ea HS N/A 12/12/16 22:00 01/11/17 21:59 Levofloxacin (Levaquin Tab) 750 mg DAILY@11 PO 12/13/16 11:00 12/19/16 10:59 12/13/16 11:15 750 MG Morphine Sulfate (MoRPHine SULFATE INJ) 4 mg Q3H PRN IV 12/12/16 13:30 12/26/16 13:29 12/13/16 17:14 4 MG Dicyclomine HCl (Bentyl Tab) 20 mg BID PO 12/13/16 20:00 01/12/17 19:59 Sodium Chloride ([place] Nasal [place]) 1 sprays PRN PRN NA 12/13/16 11:15 01/12/17 11:14
[2016-12-13] MEDS: DICYCLOMINE HCL 20 MG TAB PO SCH (20:04)
[2016-12-13] MEDS: OXYCODONE HCL IR 5 MG TAB (IMMEDIATE RELEASE) PO PRN (20:23)
[2016-12-13] MEDS: TRAZODONE HCL 50 MG TAB PO SCH (21:16)
[2016-12-14 00:41] VITALS: BP 107/66; PULSE 79; TEMP 36.9; O2SAT 98
[2016-12-14] MEDS: OXYCODONE HCL IR 5 MG TAB (IMMEDIATE RELEASE) PO PRN ×2 (05:35→11:32)
[2016-12-14 07:05] VITALS: BP 149/84; PULSE 74; TEMP 36.7; O2SAT 94
[2016-12-14 07:18] VITALS: PULSE 70; O2SAT 95
[2016-12-14] MEDS: ALBUT/IPRATROP 3MG/0.5MG NEB 3 ML VIAL INH SCH (07:18)
[2016-12-14] MEDS ORDERED: LVQ750 PO (07:41)
[2016-12-14] MEDS ORDERED: VNCS125 PO (07:41)
[2016-12-14 07:47] LABS: HEMATOCRIT 40.9 % (37-47); MEAN CELL VOLUME 94.9 fL (80-100); MEAN CORPUSCULAR HEMOGLOBIN 30.4 pg (25-34); MEAN PLATELET VOLUME 9.2 fL (7.4-10.4); PLATELET COUNT 389 K/uL (130-400); RED BLOOD COUNT 4.31 M/uL (4.2-5.4); WHITE BLOOD COUNT 8.79 K/uL (4.8-10.8)
[2016-12-14 08:00] VITALS: O2SAT 94
[2016-12-14] MEDS: NICOTINE 21 MG/24 HR TDSY TD SCH (08:00)
[2016-12-14 08:11] LABS: CREATININE 0.66 mg/dl (0.60-1.20)
[2016-12-14] MEDS: RASPBERRY SYRUP 5 ML UDP PO SCH ×2 (08:23→11:02)
[2016-12-14] MEDS: VANCOMYCIN HCL 125 MG/2.5ML SOLN PO SCH ×2 (08:23→11:02)
[2016-12-14] MEDS: RANITIDINE HCL 150 MG TAB PO SCH (08:23)
[2016-12-14] MEDS: CALCIUM POLYCARBOPHIL 1 TAB PO SCH (08:24)
[2016-12-14] MEDS: OMEGA-3 (PURIFIED FISH OIL) 1 GM CAP PO SCH (08:24)
[2016-12-14] MEDS: CALCIUM 600MG + VIT D 400 IU TAB PO SCH (08:24)
[2016-12-14] MEDS: GABAPENTIN 300 MG CAP PO SCH (08:24)
[2016-12-14] MEDS: TOCOPHERYL, DL-ALPHA 400 INTER.UNIT CAP PO SCH (08:24)
[2016-12-14] MEDS: DICYCLOMINE HCL 20 MG TAB PO SCH (08:24)
[2016-12-14] MEDS: CYANOCOBALAMIN 500 MCG TAB (VIT B-12) PO SCH (09:10)
[2016-12-14] MEDS: LACTOBACILLUS ACIDOPHILUS (FLORANEX) TAB PO SCH (09:10)
[2016-12-14] MEDS: FERROUS SULFATE 325 MG TAB PO SCH (09:10)
--- NOTE | 2016-12-14 10:15 | Progress Note ---
Medicine Progress Note Date & Time of Visit: Dec 14, 2016 at 10:13. Subjective Pt was seen and examined she said that pain improved with the pain med No more diarrhea Objective Last 8 Hrs Date Time Temp Pulse Resp B/P (MAP) Pulse Ox O2 Delivery O2 Flow Rate FiO2 12/14/16 08:00 94 Room Air 12/14/16 07:18 70 18 95 Room Air 12/14/16 07:05 36.7 74 20 149/84 (105) 94 Room Air Physical Exam: General- No acute distress Head- atraumatic Eyes- PERRL, EOMI ENT- oropharynx clear Neck- supple, no JVD Lungs- crackles Heart- regular rhythm; no murmur Abdomen- normal bowel sounds, soft, nontender Extremities- no calf tenderness Neuro- alert, oriented x 3; PERRL, EOMI; no facial palsy Skin- warm & dry Laboratory Results: Last 24 Hours Test 12/14/16 06:53 White Blood Count 8.79 K/uL Red Blood Count 4.31 M/uL Hemoglobin 13.1 g/dL Hematocrit 40.9 % Mean Corpuscular Volume 94.9 fL Mean Corpuscular Hemoglobin 30.4 pg Mean Corpuscular Hemoglobin Concent 32.0 g/dl RDW Standard Deviation 47.6 fL RDW Coefficient of Variation 13.6 % Platelet Count 389 K/uL Mean Platelet Volume 9.2 fL Creatinine 0.66 mg/dl Est Creatinine Clear Calc Drug Dose 84.7 ml/min Estimated GFR () 113.7 Estimated GFR (Non- 98.1 Assessment & Plan Recurrent C- Diff Left sided Lower abdominal pain Pt said that Since Mar, she had 4 stools sample that are positive for Cdiff Stool positive for Cdiff No leukocytosis CT abd showed no acute finding On Flagyl IV and PO vanco Will possible need a long taper course of PO Vanco for the recurrent C diff Continue pain control with morphine, probiotic Continue IVF, Zofran GI Consult 12/14 No diarrhea today flagyl discontinued Continue vanco tolerated regular diet D/C IVF pain control ( will change to PO) Gastro on board recommended a long taper course vanco po Vancomycin taper: 125mg QID x 14 days, 125mg BID x 7 days, 125mg daily x 7 days , 125mg every other day x 7 days, 125mg every 3 days x 14 days. Bentyl adding Hypoxia Occurred in the ER after following asleep from getting narcotic Possible related to aspiration pneumonia VS aspiration pneumonitis CT abd showed patchy airspace consolidation is present at both lung bases Afebrile, no leukocytosis No abx was started last night since pt showed no sign of pneumonia Will be very careful with the narcotic Resolved COPD No signs of exacerbation Continue duoneb Pneumonia CT abd showed patchy airspace consolidation is present at both lung bases CXR this morning showed bibasilar subsegmental consolidative opacities with small left pleural effusion are suspicious for multifocal pneumonia or aspiration pneumonitis. Progressed when compared with CT 12/11/2016. Will start on levaquin 750 mg daily for 5 days check sputum cx and blood cx Monitor CBC 12/13 cough Improved significantly Sputum cx growth moderate normal jadyn blood cx pending no leukocytosis continue levaquin Tobacco abuse Counseling on smoking cessation Nicotine patch Anxiety Continue xanax prn Chronic pain syndrome On narcotic, gabapentin DVT px SCDs (Episodes of GI bleed about 2 months ago) CODE STATUS FULL CODE Dispositio Follow up with gastro Follow up with pcp Dr. Mancera on 12/21 @ 1:00 pm Consultants: Gastro Current Inpatient Medications: Current Inpatient Medications Medications (Trade) Dose Ordered Sig/Rashawn Route Start Time Stop Time Status Last Admin Dose Admin Ioversol (Optiray 320) 125 ml UD PRN IV 12/11/16 12:45 12/15/16 12:44 Ondansetron HCl (Zofran Inj) 4 mg Q6H PRN IV 12/11/16 16:30 01/10/17 16:29 Vancomycin HCl (Vancomycin Oral Soln) 125 mg QID PO 12/11/16 20:00 12/25/16 20:59 12/14/16 08:23 125 MG Alprazolam (Xanax Tab) 0.5 mg TID PRN PO 12/11/16 17:30 01/10/17 17:29 Calcium Polycarbophil (Fibercon Tab) 1 tab DAILY PO 12/12/16 09:00 01/11/17 08:59 12/14/16 08:24 1 TAB Ferrous Sulfate (Feosol Tab) 325 mg DAILY PO 12/12/16 09:00 01/11/17 08:59 12/14/16 09:10 325 MG Fish Oil ([place]-3 (Purified Fish Oil) Cap) 1 gm QAM PO 12/12/16 09:00 01/11/17 08:59 12/14/16 08:24 1 GM Gabapentin (Neurontin Cap) 300 mg TID PO 12/11/16 21:00 01/10/17 20:59 12/14/16 08:24 300 MG Ranitidine HCl (zANTac TAB) 150 mg BID PO 12/11/16 21:00 01/10/17 20:59 12/14/16 08:23 150 MG Trazodone HCl (Desyrel Tab) 50 mg HS PO 12/11/16 22:00 01/10/17 21:59 12/13/16 21:16 50 MG lg-Nnela-Tefkeheklc Acetate (Vitamin E Cap) 800 interunit DAILY PO 12/12/16 09:00 01/11/17 08:59 12/14/16 08:24 800 INTERUNIT Calcium/Vitamin D (Caltrate Plus Tab) 1 tab DAILY PO 12/12/16 08:00 01/11/17 07:59 12/14/16 08:24 1 TAB Cyanocobalamin (Vitamin B-12 Tab) 500 mcg DAILY PO 12/12/16 08:00 01/11/17 07:59 12/14/16 09:10 500 MCG Lactobacillus Acidophilus (Floranex Tab) 4 tab DAILY PO 12/12/16 09:00 01/11/17 08:59 12/14/16 09:10 4 TAB Albuterol/ Ipratropium (Duoneb) 3 ml QIDR INH 12/11/16 20:00 01/10/17 19:59 12/14/16 07:18 3 ML Raspberry (Raspberry Syrup 5ml Cup) 5 ml QID PO 12/11/16 20:00 12/25/16 19:59 12/14/16 08:23 5 ML Nicotine (Nicoderm Cq 21MG Patch) 1 patch QAM TD 12/12/16 09:00 01/11/17 08:59 Miscellaneous (Remove Nicoderm Patch) 1 ea HS N/A 12/12/16 22:00 01/11/17 21:59 12/13/16 21:16 1 EA Levofloxacin (Levaquin Tab) 750 mg DAILY@11 PO 12/13/16 11:00 12/19/16 10:59 12/13/16 11:15 750 MG Dicyclomine HCl (Bentyl Tab) 20 mg BID PO 12/13/16 20:00 01/12/17 19:59 12/14/16 08:24 20 MG Sodium Chloride ([place] Nasal [place]) 1 sprays PRN PRN NA 12/13/16 11:15 01/12/17 11:14 Oxycodone HCl (Roxicodone Immediate Rel Tab) 5 mg Q6HWA PRN PO 12/13/16 20:00 12/27/16 19:59 12/14/16 05:35 5 MG
--- NOTE | 2016-12-14 10:19 | Discharge Instructions ---
Discharge Instructions Date of Service Dec 14, 2016. Admission Reason for Admission: Reccurent Clostridium Difficile Diarrhea Discharge Discharge Diagnosis / Problem: Recurrent C- Diff, Pneumonia Discharge Goals Goal(s): Decrease discomfort, Improve function, Increase independence, Improve disease control Activity Recommendations Activity Limitations: resume your previous activity (as tolerated) . Instructions / Follow-Up Instructions / Follow-Up Schedule Follow up appointment with your gastro Follow up appointment with your physician Dr. Mancera on 12/21 @ 1:00 pm Complete vancomycin tape dose complete Levaquin course take pain medication as directed Do no drive or operate any machine after taking the pain medication Current Hospital Diet Patient's current hospital diet: Regular Diet Discharge Diet Recommended Diet: Regular Diet Pending Studies Studies pending at discharge: no Medical Emergencies . Who to Call and When: Medical Emergencies: If at any time you feel your situation is an emergency, please call 911 immediately. . Non-Emergent Contact Non-Emergency issues call your: Primary Care Provider Call Non-Emergent contact if: you have a fever, your pain is not controlled, your pain is worsening . . "Provider Documentation" section prepared by Sheyla Saleh. . VTE Core Measure Inpt VTE Proph given/why not?: SCD's, Contraindicated [place] Drug Monitoring Program Search Results: no issues identified
[2016-12-14] MEDS ORDERED: OXYC-57 PO (10:21)
[2016-12-14 10:34] VITALS: BP 149/84; PULSE 70; TEMP 36.7; O2SAT 94
[2016-12-14] MEDS: LEVOFLOXACIN 750 MG TAB PO SCH (11:02)
--- NOTE | 2016-12-19 10:47 | Discharge Summary ---
Discharge Summary Date of Service Dec 19, 2016. Discharge Summary Admission Date: Dec 11, 2016 at 16:24 Discharge Date: Dec 14, 2016 Discharge Disposition: Home Principal Diagnosis: Recurrent C- Diff Secondary Diagnoses/Problems: Pneumonia Hypoxia Pneumonia Tobacco abuse Anxiety Chronic Pain Syndrome Procedures: CT SCAN OF THE ABDOMEN AND PELVIS WITH IV CONTRAST CLINICAL HISTORY: Generalized abdominal pain. COMPARISON STUDY: Abdominal CT dated 10/22/2016. TECHNIQUE: Following the IV administration of 94 cc of Optiray 320, CT scan of the abdomen and pelvis is performed from the lung bases to the proximal femora. Images are reviewed in the axial, sagittal, and coronal planes. IV contrast was administered without complication. Automated dose control exposure was utilized. CT DOSE: 266.97 mGy.cm FINDINGS: Lung bases: The heart is normal in size and without pericardial effusion. There is patchy airspace consolidation at both lung bases. Trace pleural effusions are identified. A large calcified granuloma is again seen at the right lung base. There is a tiny hiatal hernia. Liver: The contrast-enhanced liver is normal in size, contour, and attenuation. Focal fatty infiltration is seen adjacent to falciform ligament. There is no intrahepatic biliary ductal dilatation. The hepatic veins and portal veins are patent. Gallbladder: Unremarkable. Spleen: Normal in size and attenuation. Pancreas: Unremarkable. Adrenal glands: Unremarkable. Kidneys: The contrast enhanced kidneys are normal in size and without hydronephrosis. A small extrarenal pelvis is noted on the right. The kidneys enhance symmetrically. A retroaortic left renal vein is incidentally noted. Abdominal vasculature: The abdominal aorta is normal in course and caliber noting moderate atherosclerotic calcification. Bowel: The no bowel obstruction is identified. There are scattered colonic diverticula without CT evidence of acute diverticulitis. The appendix is well-visualized and normal. Peritoneum: There is no intraperitoneal free air or abdominal ascites. There is a fat-containing umbilical hernia. Lymphadenopathy: None. Pelvic viscera: The bladder is normal in appearance. A 12 mm cystic focus is again seen in the left fundal region of the uterus on axial image #326. This is unchanged from previous. The uterus is otherwise normal in appearance. No adnexal lesion is seen. Numerous calcified phleboliths are observed in the pelvis. Skeletal structures: The skeletal structures are osteopenic. No lytic or blastic lesions are seen. There is lumbosacral spondylosis and scoliosis. IMPRESSION: 1. Patchy airspace consolidation is present at both lung bases, likely representing pneumonia/aspiration pneumonitis. Clinical correlation will be required. 2. There are no acute infectious or inflammatory findings in the abdomen or pelvis. 3. Trace pleural effusions. 4. Additional changes as above. Electronically signed by: Narendra Guerrero M.D. 12/11/2016 3:26 PM Dictated Date/Time: 12/11/2016 3:20 PM CHEST ONE VIEW PORTABLE HISTORY: 56 years-old Female Pneumonia COMPARISON: CT abdomen and pelvis 12/11/2016, Acute abdominal series radiographs 01/05/2016 TECHNIQUE: Portable upright AP view of the chest FINDINGS: Cardiomediastinal and hilar silhouettes are within normal limits. There is no pneumothorax. There is a small left pleural effusion with subsegmental bibasilar consolidative opacities. Calcified granuloma of the posterior basal segment right lower lobe is redemonstrated. Lungs are mildly hyperinflated. Moderate degenerative changes involving the right shoulder. IMPRESSION: Bibasilar subsegmental consolidative opacities with small left pleural effusion are suspicious for multifocal pneumonia or aspiration pneumonitis. These findings have progressed from comparison CT 12/11/2016. The above report was generated using voice recognition software. It may contain grammatical, syntax or spelling errors. Electronically signed by: Quinton Arce M.D. 12/12/2016 7:08 AM Dictated Date/Time: 12/12/2016 7:05 AM Consultations: Gastro Medication Reconciliation New Medications: Levofloxacin (Levofloxacin) 750 Mg Tab 750 MG PO DAILY@11 for 3 Days, TAB Vancomycin HCl (Vancomycin HCl) 125 Mg/2.5 Ml Susp 125 MG PO UD for 50 Days Vancomycin taper: 125mg QID x 14 days, 125mg BID x 7 days, 125mg daily x 7 days, 125mg every other day x 7 days, 125mg every 3 days x 14 days. Changed Medications: Oxycodone/Acetaminophen 5MG/325MG (Percocet 5MG/325MG) Tab 1 TABLET PO Q6H PRN for Pain for 5 Days, #20 TAB (Changed from: Q4H; Removed Instructions) Continued Medications: Albuterol Sulf (Proventil 0.083% 2.5MG/3ML) 2.5 Mg/3 Ml Nebu 1 VIAL NEB Q6H PRN for SOB/Wheezing Alprazolam (Alprazolam) 0.5 Mg Tab 0.5 MG PO TID PRN for Anxiety Calcium Carbonate-Vitamin D (Calcium 500+D) 1 Tab Tab 1 TAB PO DAILY Calcium Polycarbophil (Fiber Tabs) 625 Mg Tab 625 MG PO DAILY Cyanocobalamin (Vitamin B-12) 500 Mcg [place] 500 MCG PO DAILY Cyclobenzaprine HCl (Cyclobenzaprine HCl) 10 Mg Tab 10 MG PO HS PRN for Muscle Spasm Dicyclomine Hcl (Dicyclomine Hcl) 20 Mg Tab 1 TAB PO BID for 30 Days, #60 Ferrous Sulfate (Ferrous Sulfate) 325 Mg Tab 325 MG PO DAILY Fish Oil ([place]-3) 1 Ea Cap 1000 MG PO QAM Gabapentin (Gabapentin) 300 Mg Cap 300 MG PO TID Ipratropium-Albuterol (Combivent Respimat) 1 Aer Aer 1 PUFF INH QID PRN for COPD, INH Ketorolac Tromethamine (Toradol) 10 Mg Tab 10 MG PO Q6 PRN for Pain, TAB Probiotic Product (Align) 4 Mg Cap 1 PO DAILY Ranitidine HCl (Ranitidine HCl) 150 Mg Tab 1 TAB PO BID, #60 Trazodone Hcl (Trazodone) 50 Mg Tab 50 MG PO HS Vitamin E (Vitamin E 400 Iu) 400 Unit Cap 800 INTER.UNIT PO DAILY, CAP Admission Information HPI (per Admitting provider): 56 yo Female with PMH of recurrent C diff, tobacco abuse, COPD, panic disorder, fibromyalgia, GERD present to the ER for watery diarrhea associated with left side abdominal pain. Pt said that since March last year, she has been having recurrent C- diff. She said that 3 weeks ago she was in [place] for vacation. She said that she had a diarrhea and abdominal pain that started before she got to [place]. she went to the ER there and was Positive for C-diff. She was given Flagyl. she said that she has 5 tabs left to complete the course for Flagyl. She said that the diarrhea and the abdominal pain improved for a few days. she said the diarrhea and the left sided abdominal worsening then he went to see her PCP. HER PCP change her Nexium to Zantac. She said that again about few days ago she developed diarrhea associated worsening abdominal pain. She describes the left sided abdominal pain as cramping/spasm, intermittent, grade 10 of 10 today. She said that the pain is chronic but whenever that she has diarrhea/c diff, pain is worst. In the ER she had narcotic and fell asleep then few minutes later her saturation dropped. Denies any chest pain, palpitation, nausea, vomiting, dizziness, fever, chills and SOB. C- diff sent in the ER and was positive. CT abdomen done showed no acute infectious or inflammatory findings in the abdomen. there are Patchy airspace consolidation present at both lung bases, likely representing pneumonia/aspiration pneumonitis. Physical Exam (per Admitting): General Appearance: WD/WN, no apparent distress Head: normocephalic, atraumatic Eyes: PERRL, EOMI ENT: hearing grossly normal Neck: supple, no JVD Respiratory/Chest: no respiratory distress, no accessory muscle use, + rhonchi Cardiovascular: regular rate, rhythm, no JVD, no murmur Abdomen/GI: + tenderness, + pertinent finding (hyperactive bowel sound) Extremities/Musculoskelatal: no calf tenderness Neurologic/Psych: no motor/sensory deficits, alert, oriented x 3 Skin: normal color, warm/dry, no rash Hospital Course Recurrent C- Diff Left sided Lower abdominal pain Pt said that Since Mar, she had 4 stools sample that are positive for Cdiff Stool positive for Cdiff No leukocytosis CT abd showed no acute finding On Flagyl IV and PO vanco Will possible need a long taper course of PO Vanco for the recurrent C diff Continue pain control with morphine, probiotic Continue IVF, Zofran GI Consult 12/14 No diarrhea today flagyl discontinued Continue vanco tolerated regular diet D/C IVF pain control ( will change to PO) Gastro on board recommended a long taper course vanco po Vancomycin taper: 125mg QID x 14 days, 125mg BID x 7 days, 125mg daily x 7 days , 125mg every other day x 7 days, 125mg every 3 days x 14 days. Bentyl adding Hypoxia Occurred in the ER after following asleep from getting narcotic Possible related to aspiration pneumonia VS aspiration pneumonitis CT abd showed patchy airspace consolidation is present at both lung bases Afebrile, no leukocytosis No abx was started last night since pt showed no sign of pneumonia Will be very careful with the narcotic Resolved COPD No signs of exacerbation Continue duoneb Pneumonia CT abd showed patchy airspace consolidation is present at both lung bases CXR this morning showed bibasilar subsegmental consolidative opacities with small left pleural effusion are suspicious for multifocal pneumonia or aspiration pneumonitis. Progressed when compared with CT 12/11/2016. Will start on levaquin 750 mg daily for 5 days check sputum cx and blood cx Monitor CBC 12/13 cough Improved significantly Sputum cx growth moderate normal jadyn blood cx pending no leukocytosis continue levaquin Tobacco abuse Counseling on smoking cessation Nicotine patch Anxiety Continue xanax prn Chronic pain syndrome On narcotic, gabapentin DVT px SCDs (Episodes of GI bleed about 2 months ago) CODE STATUS FULL CODE Dispositio Follow up with gastro Follow up with pcp Dr. Mancera on 12/21 @ 1:00 pm Total time spent on discharge = 35 minutes This includes examination of the patient, discharge planning, medication reconciliation, and communication with other providers. Discharge Instructions Discharge Instructions Date of Service Dec 14, 2016. Admission Reason for Admission: Recurrent Clostridium Difficile Diarrhea Discharge Discharge Diagnosis / Problem: Recurrent C- Diff, Pneumonia Discharge Goals Goal(s): Decrease discomfort, Improve function, Increase independence, Improve disease control Activity Recommendations Activity Limitations: resume your previous activity (as tolerated) . Instructions / Follow-Up Instructions / Follow-Up Schedule Follow up appointment with your gastro Follow up appointment with your physician Dr. Mancera on 12/21 @ 1:00 pm Complete vancomycin tape dose complete Levaquin course take pain medication as directed Do no drive or operate any machine after taking the pain medication Current Hospital Diet Patient's current hospital diet: Regular Diet Discharge Diet Recommended Diet: Regular Diet Pending Studies Studies pending at discharge: no Medical Emergencies . Who to Call and When: Medical Emergencies: If at any time you feel your situation is an emergency, please call 911 immediately. . Non-Emergent Contact Non-Emergency issues call your: Primary Care Provider Call Non-Emergent contact if: you have a fever, your pain is not controlled, your pain is worsening . . "Provider Documentation" section prepared by Sheyla Saleh. . VTE Core Measure Inpt VTE Proph given/why not?: SCD's, Contraindicated [place] Drug Monitoring Program Search Results: no issues identified Additional Copies To Andre Mancera D.O.
== END 2016-12-14 11:50 | disposition home or self-care (01) | DRG 371 ==
LOC: C.EDB 11:56 → UNDOADMIN 16:24 → C.MS4W 16:24 → ENRESERV 16:52
PROVIDERS: ADMIT Internal Medicine; ATTEND Internal Medicine
DX: A04.7 Enterocolitis due to Clostridium difficile (principal); J69.0 Pneumonitis due to inhalation of food and vomit; R09.02 Hypoxemia; K21.9 Gastro-esophageal reflux disease without esophagitis; J44.9 Chronic obstructive pulmonary disease, unspecified; M79.7 Fibromyalgia; F41.9 Anxiety disorder, unspecified; F17.200 Nicotine dependence, unspecified, uncomplicated; Z79.899 Other long term (current) drug therapy; Z83.3 Family history of diabetes mellitus

== ENCOUNTER 2017-05-12 11:55 | Emergency (ER) | payer OTHER ==
[~2017-05-12] VITALS: Ht 165.1 cm; Wt 68.8 kg
[~2017-05-12 11:55] MED LIST changes: -ACET-1256 PO; +ALBINS/ NEB; +DICY20TA10 PO; -ESOM20CA PO; -IBUP-1050 PO; +KETO10TA PO; +LVQ750 PO; +MISC4CAP PO; +RANI150T2 PO; +VNCS125 PO
[2017-05-12 12:08] VITALS: TEMP 36.9; Ht 165.1 cm; Wt 68.8 kg
[2017-05-12 12:35] LABS: BASO % 0.1 %; BASO ABS # 0.01 K/uL (0-0.2); EOS % 0.1 %; EOS ABS # 0.01 K/uL (0-0.5); HEMOGLOBIN 15.8 g/dL (12.0-16.0); IG# 0.01 K/uL (0.00-0.02); LYMPH ABS # 2.02 K/uL (1.2-3.4); MEAN CELL VOLUME 92.7 fL (80-100); MEAN CORPUSCULAR HEMOGLOBIN 31.9 pg (25-34); MEAN CORPUSCULAR HGB CONC 34.3 g/dl (32-36); MEAN PLATELET VOLUME 9.3 fL (7.4-10.4); MONO % 2.2 %; MONO ABS # 0.22 K/uL (0.11-0.59); NEUT % 77.5 %; NEUT ABS # 7.81 K/uL (1.4-6.5); PLATELET COUNT 351 K/uL (130-400); RED CELL DISTRIBUTION WIDTH CV 13.8 % (11.5-14.5); RED CELL DISTRIBUTION WIDTH SD 46.8 fL (36.4-46.3); WHITE BLOOD COUNT 10.08 K/uL (4.8-10.8)
[2017-05-12 12:52] LABS: ALBUMIN 3.8 gm/dl (3.4-5.0); CALCIUM 9.7 mg/dl (8.5-10.1); CREATININE 0.69 mg/dl (0.60-1.20)
[2017-05-12 12:54] LABS: TOTAL PROTEIN 8.1 gm/dl (6.4-8.2)
[2017-05-12] MEDS ORDERED: KETOROLAC TROMETHAMINE 30 MG/ML VIAL IV STA (13:17)
[2017-05-12] MEDS ORDERED: SODIUM CHLORIDE 0.9% 1000ML 500 ML IV STA (13:17)
[2017-05-12] MEDS ORDERED: OPTIRAY 320 IV PRN (13:30)
[2017-05-12] MEDS ORDERED: HYDROmorphone INJ 2 MG/ML SYR/VIAL IV PRN (13:30)
[2017-05-12] MEDS ORDERED: HYDROmorphone INJ 1 MG/ML SYR ONE (13:41)
--- NOTE | 2017-05-12 14:17 | DIAGNOSTIC IMAGING REPORT ---
CT ABD/PELVIS IV CONTRAST ONLY CLINICAL HISTORY: Diffuse abdominal pain. Possible bowel obstruction. COMPARISON STUDY: December 11, 2016 TECHNIQUE: Following the IV administration of 93 mL of Optiray-320, CT scan of the abdomen and pelvis was performed from the lung bases to the proximal femurs. Images are reviewed in the axial, sagittal, and coronal planes. IV contrast was administered without complication. A dose lowering technique was utilized adhering to the principles of ALARA. CT DOSE: 312.08 mGy.cm FINDINGS: Lower chest: There is markedly improved aeration of the lung bases. Moderate residual nodularity is likely postinflammatory Liver: The contrast-enhanced liver is normal in size, contour, and attenuation. There is no intrahepatic biliary ductal dilatation. The hepatic veins and portal veins are patent. Gallbladder: Unremarkable. Spleen: Normal in size and attenuation. Pancreas: Unremarkable. Adrenal glands: Unremarkable. Kidneys: There is symmetric renal cortical enhancement. The kidneys are normal in size without hydronephrosis. Bowel: There are no transition zones indicate bowel obstruction. There is scattered nonspecific jejunal air-fluid levels. The appendix appears normal. There is no acute diverticulitis. There is colonic diverticulosis. There is borderline sigmoid wall thickening.. There are no peridiverticular inflammatory changes. Peritoneum: There is no intraperitoneal free air or abdominal ascites. Vasculature: The abdominal aorta is normal in course and caliber. Adenopathy: None. Pelvic viscera: There is a 1 cm left renal hypodensity, this remains unchanged the preceding study. Skeletal structures: No destructive osseous lesions are seen. IMPRESSION: 1. No evidence of bowel obstruction. No evidence of free air 2. Normal appendix 3. Scattered nonspecific jejunal air-fluid levels 4. Mild sigmoid wall thickening versus a nondistended segment Electronically signed by: Donte Yi M.D. 05/12/2017 2:15 PM Dictated Date/Time: 05/12/2017 2:09 PM
--- NOTE | 2017-05-12 14:25 | EMERGENCY ROOM VISIT NOTE ---
History Report prepared by Ashley: Evi Rodriguez Under the Supervision of: Dr. Narendra Tracy M.D. First contact with patient: 13:12 Chief Complaint: ABDOMINAL PAIN Stated Complaint: ABDOMINAL PAIN Nursing Triage Summary: Pt presents via ALS for Severe LLQ abdominal pain. Pt was dx in June with Clostridium difficile and since then has intermittent "bursts of pain in LLQ, but they normally go away after a little while". Pt had f/u with GI yesterday and at that time everything was normal. Today pt woke up and developed persistent severe LLQ pain. No other complaints. [employer], ALS adminstered 4mg IV zofran and 6mg IV morphine. Pt presents c/o pain 01/31. History of Present Illness The patient is a 57 year old female who presents to the Emergency Room with complaints of worsening LLQ abdominal pain that began yesterday evening. The patient states that her pain started yesterday and has gradually worsened throughout the night. When she woke up this morning her pain was significantly worse. Her pain radiates into her back. She rates her current pain as a 9/10 in severity. She states, "It feels like my intestines are swollen." The patient had one episode of loose stools today but denies any diarrhea. She has had C- difficile in the past and states that her current symptoms feel similar to her previous C-diff infections. The patient was brought to the ED by ambulance. She received Zofran and morphine en route to the ED. She states that the morphine has helped to alleviate some of her pain. The patient denies any personal or family history of kidney stones. She denies fevers, nausea, vomiting, urinary symptoms, and any recent trauma or falls. She did not eat anything today. Source of History: patient Onset: yesterday evening Position: abdomen (LLQ) Symptom Intensity: 9/10 Quality: other (radiating) Timing: worsening Modifying Factors (Relieving): narcotics Associated Symptoms: + back pain, No fevers, No nausea, No vomiting, No diarrhea, No urinary symptoms Note: Pt denies personal or family history of kidney stones. Pt denies recent trauma or falls. Review of Systems See HPI for pertinent positives & negatives. A total of 10 systems reviewed and were otherwise negative. Past Medical & Surgical Medical Problems: (1) Anxiety (2) Bipolar disorder (3) COPD, moderate (4) Fibromyalgia (5) GERD (gastroesophageal reflux disease) (6) Recurrent Clostridium difficile diarrhea Surgical Problems: (1) History of tubal ligation (2) Lipoma tumor removal (3) Previous section Family History Diabetes mellitus Social History Smoking Status: Never Smoker Alcohol Use: none Drug Use: marijuana Marital Status: single Housing Status: lives alone Occupation Status: disabled Current/Historical Medications Scheduled Calcium Carbonate-Vitamin D (Calcium 500+D), 1 TAB PO DAILY Calcium Polycarbophil (Fiber Tabs), 625 MG PO DAILY Cyanocobalamin (Vitamin B-12), 500 MCG PO DAILY Dicyclomine Hcl (Dicyclomine Hcl), 1 TAB PO BID Ferrous Sulfate (Ferrous Sulfate), 325 MG PO DAILY Fish Oil ([place]-3), 1,000 MG PO QAM Gabapentin (Gabapentin), 300 MG PO TID Metronidazole (Flagyl), 500 MG PO TID Probiotic Product (Align), 1 PO DAILY Ranitidine HCl (Ranitidine HCl), 1 TAB PO BID Trazodone Hcl (Trazodone), 50 MG PO HS Vitamin E (Vitamin E 400 Iu), 800 INTER.UNIT PO DAILY Scheduled PRN Albuterol Sulf (Proventil 0.083% 2.5MG/3ML), 1 VIAL NEB Q6H PRN for SOB/Wheezing Alprazolam (Alprazolam), 0.5 MG PO TID PRN for Anxiety Cyclobenzaprine HCl (Cyclobenzaprine HCl), 10 MG PO HS PRN for Muscle Spasm Ipratropium-Albuterol (Combivent Respimat), 1 PUFF INH QID PRN for COPD Ketorolac Tromethamine (Toradol), 10 MG PO Q6 PRN for Pain Oxycodone/Acetaminophen 5MG/325MG (Percocet 5MG/325MG), 1 TABLET PO Q6H PRN for Pain Allergies Coded Allergies: Lorazepam (Verified Allergy, Mild, UNK, 05/12/17) BEE STING (Unverified Allergy, Unknown, "LUNGS CLOSE UP", 05/12/17) Diclofenac (Verified Allergy, Unknown, 05/12/17) Risperidone (Verified Allergy, Unknown, UNKNOWN, 05/12/17) Physical Exam Vital Signs Date Time Temp Pulse Resp B/P (MAP) Pulse Ox O2 Delivery O2 Flow Rate FiO2 05/12/17 15:09 68 18 151/80 92 Room Air 05/12/17 13:15 68 18 151/95 97 Room Air 05/12/17 12:40 69 05/12/17 12:08 36.9 119 20 169/93 95 Room Air Physical Exam GENERAL: Patient is in mild to moderate distress secondary to pain. HEENT: No acute trauma, normocephalic atraumatic, mucous membranes moist, no nasal congestion, no scleral icterus. NECK: No stridor, no adenopathy, no meningismus, trachea is midline. LUNGS: Clear to auscultation bilaterally, no wheeze, no rhonchi, breath sounds equal. HEART: Without murmurs gallops or rubs, regular rate and rhythm. ABDOMEN: Soft, nontender, bowel sounds positive, no hernias, no peritonitis. EXTREMITIES: No cyanosis or edema, full range of motion of all the joints without pain or difficulty, no signs for acute trauma. NEUROLOGIC: Oriented x 3, no acute motor or sensory deficits, no focal weakness. SKIN: No rash, no jaundice, no diaphoresis. Medical Decision & Procedures ER Provider Diagnostic Interpretation: Radiology results as stated below per my review and radiologist interpretation: CT ABD/PELVIS IV CONTRAST ONLY CLINICAL HISTORY: Diffuse abdominal pain. Possible bowel obstruction. COMPARISON STUDY: December 11, 2016 TECHNIQUE: Following the IV administration of 93 mL of Optiray-320, CT scan of the abdomen and pelvis was performed from the lung bases to the proximal femurs. Images are reviewed in the axial, sagittal, and coronal planes. IV contrast was administered without complication. A dose lowering technique was utilized adhering to the principles of ALARA. CT DOSE: 312.08 mGy.cm FINDINGS: Lower chest: There is markedly improved aeration of the lung bases. Moderate residual nodularity is likely postinflammatory Liver: The contrast-enhanced liver is normal in size, contour, and attenuation. There is no intrahepatic biliary ductal dilatation. The hepatic veins and portal veins are patent. Gallbladder: Unremarkable. Spleen: Normal in size and attenuation. Pancreas: Unremarkable. Adrenal glands: Unremarkable. Kidneys: There is symmetric renal cortical enhancement. The kidneys are normal in size without hydronephrosis. Bowel: There are no transition zones indicate bowel obstruction. There is scattered nonspecific jejunal air-fluid levels. The appendix appears normal. There is no acute diverticulitis. There is colonic diverticulosis. There is borderline sigmoid wall thickening.. There are no peridiverticular inflammatory changes. Peritoneum: There is no intraperitoneal free air or abdominal ascites. Vasculature: The abdominal aorta is normal in course and caliber. Adenopathy: None. Pelvic viscera: There is a 1 cm left renal hypodensity, this remains unchanged the preceding study. Skeletal structures: No destructive osseous lesions are seen. IMPRESSION: 1. No evidence of bowel obstruction. No evidence of free air 2. Normal appendix 3. Scattered nonspecific jejunal air-fluid levels 4. Mild sigmoid wall thickening versus a nondistended segment Electronically signed by: Donte Yi M.D. 05/12/2017 2:15 PM Dictated Date/Time: 05/12/2017 2:09 PM Laboratory Results 05/12/17 12:00 Red Blood Count 4.96, Mean Corpuscular Volume 92.7, Mean Corpuscular Hemoglobin 31.9, Mean Corpuscular Hemoglobin Concent 34.3, Mean Platelet Volume 9.3, Neutrophils (%) (Auto) 77.5, Lymphocytes (%) (Auto) 20.0, Monocytes (%) (Auto) 2.2, Eosinophils (%) (Auto) 0.1, Basophils (%) (Auto) 0.1, Neutrophils # (Auto) 7.81, Lymphocytes # (Auto) 2.02, Monocytes # (Auto) 0.22, Eosinophils # (Auto) 0.01, Basophils # (Auto) 0.01 05/12/17 12:00 Test 05/12/17 12:00 05/12/17 13:45 05/12/17 14:30 White Blood Count 10.08 K/uL (4.8-10.8) Red Blood Count 4.96 M/uL (4.2-5.4) Hemoglobin 15.8 g/dL (12.0-16.0) Hematocrit 46.0 % (37-47) Mean Corpuscular Volume 92.7 fL (80-100) Mean Corpuscular Hemoglobin 31.9 pg (25-34) Mean Corpuscular Hemoglobin Concent 34.3 g/dl (32-36) Platelet Count 351 K/uL (130-400) Mean Platelet Volume 9.3 fL (7.4-10.4) Neutrophils (%) (Auto) 77.5 % Lymphocytes (%) (Auto) 20.0 % Monocytes (%) (Auto) 2.2 % Eosinophils (%) (Auto) 0.1 % Basophils (%) (Auto) 0.1 % Neutrophils # (Auto) 7.81 K/uL (1.4-6.5) Lymphocytes # (Auto) 2.02 K/uL (1.2-3.4) Monocytes # (Auto) 0.22 K/uL (0.11-0.59) Eosinophils # (Auto) 0.01 K/uL (0-0.5) Basophils # (Auto) 0.01 K/uL (0-0.2) RDW Standard Deviation 46.8 fL (36.4-46.3) RDW Coefficient of Variation 13.8 % (11.5-14.5) Immature Granulocyte % (Auto) 0.1 % Immature Granulocyte # (Auto) 0.01 K/uL (0.00-0.02) Anion Gap 7.0 mmol/L (3-11) Est Creatinine Clear Calc Drug Dose 86.6 ml/min Estimated GFR () 111.2 Estimated GFR (Non- 96.0 BUN/Creatinine Ratio 26.8 (10-20) Calcium Level 9.7 mg/dl (8.5-10.1) Total Bilirubin 0.4 mg/dl (0.2-1) Aspartate Amino Transf (AST/SGOT) 14 U/L (15-37) Alanine Aminotransferase (ALT/SGPT) 22 U/L (12-78) Alkaline Phosphatase 110 U/L (45-117) Total Protein 8.1 gm/dl (6.4-8.2) Albumin 3.8 gm/dl (3.4-5.0) Globulin 4.3 gm/dl (2.5-4.0) Albumin/Globulin Ratio 0.9 (0.9-2) Lipase 71 U/L (73-393) Lactic Acid Level 0.9 mmol/L (0.4-2.0) Urine Color YELLOW Urine Appearance CLEAR (CLEAR) Urine pH 8.5 (4.5-7.5) Urine Specific [place] 1.031 (1.000-1.030) Urine Protein NEG (NEG) Urine Glucose (UA) NEG (NEG) Urine Ketones 2+ (NEG) Urine Occult Blood TRACE (NEG) Urine Nitrite NEG (NEG) Urine Bilirubin NEG (NEG) Urine Urobilinogen NEG (NEG) Urine Leukocyte Esterase NEG (NEG) Urine WBC (Auto) 1-5 /hpf (0-5) Urine RBC (Auto) 5-10 /hpf (0-4) Urine Hyaline Casts (Auto) 1-5 /lpf (0-5) Urine Epithelial Cells (Auto) 20-30 /lpf (0-5) Urine Bacteria (Auto) NEG (NEG) Laboratory results reviewed by me. Medications Administered Medications (Trade) Dose Ordered Sig/Rashawn Route Start Time Stop Time Status Last Admin Dose Admin Sodium Chloride 500 ml @ 999 mls/hr Q31M STAT IV 05/12/17 13:17 05/12/17 13:47 DC 05/12/17 13:17 999 MLS/HR Ketorolac Tromethamine (Toradol Inj) 30 mg NOW STAT IV 05/12/17 13:17 05/12/17 13:20 DC 05/12/17 13:45 30 MG Hydromorphone HCl (Dilaudid Inj) 1 mg STK-MED ONCE .ROUTE 05/12/17 13:41 05/12/17 13:42 DC 05/12/17 13:44 1 MG Metronidazole (Flagyl Tab) 500 mg NOW STAT PO 05/12/17 15:42 05/12/17 15:43 DC 05/12/17 15:42 500 MG ECG Indication: abdominal pain Rate (beats per minute): 64 Rhythm: normal sinus Findings: no acute ischemic change, no ectopy Change: ECG as interpreted by myself. ED Course 1312: The patient was evaluated in room C4. A complete history and physical exam was performed. 1317: Toradol 30 mg IV, NSS 500 ml @ 999 mls/hr IV 1330: Dilaudid 1 mg IV - PRN 1515: I reassessed the patient at this time. She is feeling better and resting comfortably. She has had c-diff 7 times in the past and states that this feels the same. She has responded well to Flagyl in the past. I discussed the results and treatment plan with the patient. I answered all pertaining questions that she had. She expressed understanding and verbalized agreement. The patient will be discharged home. 1542: Flagyl 500 mg PO Medical Decision Differential diagnoses includes renal colic, bowel obstruction, diverticulitis, colitis, hernia, pancreatitis, UTI musculoskeletal pain, c-difficile. There is no leukocytosis or concerning anemia. No significant electrolyte abnormality, kidney failure, hepatitis or pancreatitis. Lactic acid level is not elevated making bowel ischemia less likely. On exam, there was no peritonitis. The patient was not toxic or febrile. Urinalysis does not show infection, contamination was noted. Abdominal and pelvis CT shows no bowel obstruction, there was no diverticulitis or true colitis. No acute surgical process by CT. The patient received IV saline, IV Dilaudid and IV Toradol. She was given a dose of oral Flagyl. The patient is feeling improved. I do think she can be discharged. She was asking for a prescription for Flagyl as she feels she may have early C. difficile colitis. She has done well with Flagyl in the past. This was felt reasonable. The patient will be discharged with Flagyl, a bland diet. She has Percocet at home to use for pain. If things are worsening, she will return for reassessment. [place] Drug Monitoring Program Search Results: patient reviewed within database Drug Monitoring Findings: The patient received 90 Percocet 3 days ago. Medication Reconcilliation Current Medication List: was personally reviewed by me Blood Pressure Screening Patient's blood pressure: Elevated blood pressure Blood pressure disposition: Referred to PCP Impression Primary Impression: LLQ abdominal pain Scribe Attestation The scribe's documentation has been prepared under my direction and personally reviewed by me in its entirety. I confirm that the note above accurately reflects all work, treatment, procedures, and medical decision making performed by me. Departure Information Dispostion Home / Self-Care Prescriptions Metronidazole (FLAGYL) 500 Mg Tab 500 MG PO TID for 7 Days, #21 TAB Prov: Narnedra Tracy M.D. 05/12/17 Referrals Andre Mancera, D.OMarco A (PCP) Forms Call Back Authorization, HOME CARE DOCUMENTATION FORM, IMPORTANT VISIT INFORMATION Patient Instructions [facility] Additional Instructions flagyl 3x per day for 1 week take the percocet you were prescibed 3 days ago for pain as needed bland diet--crackers, soup, toast, gatorade follow with shahid martinez return for fever, uncontrolled pain, vomiting, diarrhea
[2017-05-12 15:09] VITALS: BP 151/80; PULSE 68; O2SAT 92
[2017-05-12] MEDS ORDERED: METR-162 PO (15:22)
[2017-05-12] MEDS ORDERED: METRONIDAZOLE 250 MG TAB PO STA (15:42)
== END 2017-05-12 15:31 | disposition home or self-care (01) ==
LOC: EDBD 11:55 → C.EDC 11:56
DX: R10.32 Left lower quadrant pain (principal); F41.9 Anxiety disorder, unspecified; F32.9 Major depressive disorder, single episode, unspecified; J44.9 Chronic obstructive pulmonary disease, unspecified; M79.7 Fibromyalgia; K21.9 Gastro-esophageal reflux disease without esophagitis; Z83.3 Family history of diabetes mellitus; Z79.899 Other long term (current) drug therapy

== ENCOUNTER 2017-05-18 16:42 | Emergency (ER) | payer OTHER ==
[~2017-05-18] VITALS: Ht 160 cm; Wt 70.0 kg
[~2017-05-18 16:42] MED LIST changes: -LVQ750 PO; +METR-162 PO; -VNCS125 PO
[2017-05-18 17:04] VITALS: TEMP 36.3; Ht 160 cm; Wt 70.0 kg
[2017-05-18] MEDS ORDERED: SODIUM CHLORIDE 0.9% 1000ML 1,000 ML IV STA (17:22)
[2017-05-18] MEDS ORDERED: HYDROmorphone INJ 1 MG/ML SYR IV STA (17:22)
--- NOTE | 2017-05-18 17:29 | EMERGENCY ROOM VISIT NOTE ---
History Report prepared by Ashley: Sammy Davis Under the Supervision of: Dr. Jamie Barbosa M.D. First contact with patient: 17:13 Chief Complaint: GI ASSESSMENT Stated Complaint: LEFT LOWER BOWEL PAIN Nursing Triage Summary: Severe abdominal pain. Patient presents in wheelchair. Patient moaning upon presentations. Pain in left lower abdomen. Was in ED on 05/12 with C. diff and given flagyl. Woke up this morning with severe pain. History of Present Illness The patient is a 57 year old female who presents to the Emergency Room with complaints of constant LLQ abdominal pain beginning earlier today. The patient states she thinks she has C-Diff again. She reports she is experiencing 5 bowel movements a day, and it is dark no hematochezia. The patient notes she is currently on Percocet and smokes. She states she has one day left of her Flagyl. The patient denies black stool, fevers, shortness of breath, chest pain , and blood in her urine. Source of History: patient Onset: earlier today Position: abdomen (LLQ) Timing: constant Associated Symptoms: No fevers, No chest pain, No SOB Note: Associated symptoms: dark red blood Denies: black stool and blood in urine Review of Systems See HPI for pertinent positives and negatives. A total of ten systems were reviewed and were otherwise negative. Past Medical & Surgical Medical Problems: (1) Anxiety (2) Bipolar disorder (3) COPD, moderate (4) Fibromyalgia (5) GERD (gastroesophageal reflux disease) (6) Recurrent Clostridium difficile diarrhea Surgical Problems: (1) History of tubal ligation (2) Lipoma tumor removal (3) Previous section Family History Diabetes mellitus Social History Smoking Status: Current Every Day Smoker Alcohol Use: none Drug Use: marijuana Marital Status: single Housing Status: lives alone Occupation Status: disabled Current/Historical Medications Scheduled Calcium Carbonate-Vitamin D (Calcium 500+D), 1 TAB PO DAILY Calcium Polycarbophil (Fiber Tabs), 625 MG PO DAILY Cyanocobalamin (Vitamin B-12), 500 MCG PO DAILY Dicyclomine Hcl (Dicyclomine Hcl), 1 TAB PO BID Ferrous Sulfate (Ferrous Sulfate), 325 MG PO DAILY Fish Oil ([place]-3), 1,000 MG PO QAM Gabapentin (Gabapentin), 300 MG PO TID Metronidazole (Flagyl), 500 MG PO TID Probiotic Product (Align), 1 PO DAILY Ranitidine HCl (Ranitidine HCl), 1 TAB PO BID Trazodone Hcl (Trazodone), 50 MG PO HS Vitamin E (Vitamin E 400 Iu), 800 INTER.UNIT PO DAILY Scheduled PRN Albuterol Sulf (Proventil 0.083% 2.5MG/3ML), 1 VIAL NEB Q6H PRN for SOB/Wheezing Alprazolam (Alprazolam), 0.5 MG PO TID PRN for Anxiety Cyclobenzaprine HCl (Cyclobenzaprine HCl), 10 MG PO HS PRN for Muscle Spasm Ipratropium-Albuterol (Combivent Respimat), 1 PUFF INH QID PRN for COPD Ketorolac Tromethamine (Toradol), 10 MG PO Q6 PRN for Pain Oxycodone/Acetaminophen 5MG/325MG (Percocet 5MG/325MG), 1 TABLET PO Q6H PRN for Pain Allergies Coded Allergies: Lorazepam (Verified Allergy, Mild, UNK, 05/12/17) BEE STING (Unverified Allergy, Unknown, "LUNGS CLOSE UP", 05/12/17) Diclofenac (Verified Allergy, Unknown, 05/12/17) Risperidone (Verified Allergy, Unknown, UNKNOWN, 05/12/17) Physical Exam Vital Signs Date Time Temp Pulse Resp B/P (MAP) Pulse Ox O2 Delivery O2 Flow Rate FiO2 05/18/17 20:30 78 18 151/94 94 Room Air 05/18/17 18:38 68 20 191/97 99 Room Air 05/18/17 17:04 36.3 68 22 178/93 98 Room Air Physical Exam Physical Exam GENERAL: She is oriented to person, place, and time. She appears well- developed and well-nourished. She does not appear distressed. ____ HENT: Exam performed. Head: Normocephalic and atraumatic. Right Ear: External ear normal. No mastoid tenderness. Left Ear: External ear normal. No mastoid tenderness. Mouth/Throat: The oropharynx is clear and moist. No trismus in the jaw. No dental abscesses or uvula swelling. No oropharyngeal exudate or tonsillar abscesses. ____ EYES: Conjunctivae and EOM are normal. Pupils are equal, round, and reactive to light. Right eye exhibits no discharge. Left eye exhibits no discharge. No scleral icterus. ____ NECK: Normal range of motion. Neck supple. No JVD present. No spinous process tenderness present. No carotid bruit present. No rigidity. No tracheal deviation and normal range of motion present. No Brudzinski's sign and no Kernig 's sign noted. ____ CV: Normal rate, regular rhythm, normal heart sounds and intact distal pulses. There is no peripheral edema. Palpable radial pulses bue. ____ PULM/CHEST: Effort normal and breath sounds normal. No stridor. She has scant expiratory wheezes. She has no rales. Chest Wall: She exhibits no tenderness. ____ ABD: The abdomen is soft. Bowel sounds are normal. She has no distension. No mass is present. There is tenderness in the LLQ. There is no rebound, no guarding, no Olivo's sign and no tenderness at McBurney's point. Rovsig negative MUSC/SKEL: Normal range of motion. There is no peripheral edema, tenderness or deformity. LYMPH: No cervical adenopathy. ____ NEURO: She is alert and oriented to person, place, and time. She has normal strength. No cranial nerve deficit or sensory deficit. Coordination and gait normal. GCS eye subscore is 4. GCS verbal subscore is 5. GCS motor subscore is 6. cerbellar tests wnl. ____ SKIN: Skin is warm and dry. She is not diaphoretic. ____ PSYCH: She has a normal mood and affect. Her behavior is normal. Judgment and thought content normal. ____ Medical Decision & Procedures ER Provider Diagnostic Interpretation: Radiology results as stated below per my review and radiologist interpretation ABDOMEN AND PELVIS CT WITH IV CONTRAST CT DOSE: 317.24 mGy.cm HISTORY: Acute left lower quadrant abdominal pain persisent llq pain r/o diverticulitis TECHNIQUE: Multiaxial CT images of the abdomen and pelvis were performed following the use of intravenous contrast. A dose lowering technique was utilized adhering to the principles of ALARA. COMPARISON STUDY: CT abdomen pelvis 05/12/2017. FINDINGS: Calcified granuloma the right lower lobe with mild adjacent pleural parenchymal scarring. Mild subsegmental atelectasis of the lung bases. Inferior cardiac chambers are unremarkable. Liver, spleen, gallbladder, pancreas and adrenal glands are unremarkable. The kidneys, ureters and urinary bladder are also within normal limits. 1.2 cm low attenuating lesion involves the left fundal portion of the uterus which is unchanged and nonspecific and may reflect a leiomyoma. No adnexal mass lesions identified. Mild to moderate atherosclerosis of the aorta. No bulky adenopathy. Retroaortic left renal vein. There is no bowel obstruction identified. Moderate wall thickening of the mid sigmoid colon is redemonstrated without surrounding inflammatory stranding. Moderate colonic diverticulosis without definite evidence of acute diverticulitis. Normal appendix. Soft tissues are unremarkable. Bones appear intact. Severe intervertebral disc space narrowing at L4-L5. Dextroscoliosis of the lumbar spine. IMPRESSION: 1. Unchanged moderate wall thickening of the mid sigmoid colon without surrounding inflammatory stranding likely suggests combination of partial distention with wall hypertrophy from associated sigmoid diverticulosis. No evidence of acute colonic diverticulitis. 2. No bowel obstruction. 3. Normal appendix. Electronically signed by: Quinton Arce M.D. 05/18/2017 7:52 PM Dictated Date/Time: 05/18/2017 7:45 PM Laboratory Results 05/18/17 17:51 Red Blood Count 5.02, Mean Corpuscular Volume 91.8, Mean Corpuscular Hemoglobin 32.3, Mean Corpuscular Hemoglobin Concent 35.1, Mean Platelet Volume 9.1, Neutrophils (%) (Auto) 69.1, Lymphocytes (%) (Auto) 24.7, Monocytes (%) (Auto) 5.4, Eosinophils (%) (Auto) 0.4, Basophils (%) (Auto) 0.2, Neutrophils # (Auto) 6.42, Lymphocytes # (Auto) 2.29, Monocytes # (Auto) 0.50, Eosinophils # (Auto) 0.04, Basophils # (Auto) 0.02 05/18/17 17:51 Test 05/18/17 17:51 White Blood Count 9.29 K/uL (4.8-10.8) Red Blood Count 5.02 M/uL (4.2-5.4) Hemoglobin 16.2 g/dL (12.0-16.0) Hematocrit 46.1 % (37-47) Mean Corpuscular Volume 91.8 fL (80-100) Mean Corpuscular Hemoglobin 32.3 pg (25-34) Mean Corpuscular Hemoglobin Concent 35.1 g/dl (32-36) Platelet Count 341 K/uL (130-400) Mean Platelet Volume 9.1 fL (7.4-10.4) Neutrophils (%) (Auto) 69.1 % Lymphocytes (%) (Auto) 24.7 % Monocytes (%) (Auto) 5.4 % Eosinophils (%) (Auto) 0.4 % Basophils (%) (Auto) 0.2 % Neutrophils # (Auto) 6.42 K/uL (1.4-6.5) Lymphocytes # (Auto) 2.29 K/uL (1.2-3.4) Monocytes # (Auto) 0.50 K/uL (0.11-0.59) Eosinophils # (Auto) 0.04 K/uL (0-0.5) Basophils # (Auto) 0.02 K/uL (0-0.2) RDW Standard Deviation 45.0 fL (36.4-46.3) RDW Coefficient of Variation 13.5 % (11.5-14.5) Immature Granulocyte % (Auto) 0.2 % Immature Granulocyte # (Auto) 0.02 K/uL (0.00-0.02) Anion Gap 8.0 mmol/L (3-11) Est Creatinine Clear Calc Drug Dose 81.0 ml/min Estimated GFR () 108.8 Estimated GFR (Non- 93.9 BUN/Creatinine Ratio 24.1 (10-20) Calcium Level 9.6 mg/dl (8.5-10.1) Total Bilirubin 0.4 mg/dl (0.2-1) Aspartate Amino Transf (AST/SGOT) 14 U/L (15-37) Alanine Aminotransferase (ALT/SGPT) 33 U/L (12-78) Alkaline Phosphatase 98 U/L (45-117) Total Protein 7.6 gm/dl (6.4-8.2) Albumin 3.9 gm/dl (3.4-5.0) Globulin 3.7 gm/dl (2.5-4.0) Albumin/Globulin Ratio 1.0 (0.9-2) Lipase 66 U/L (73-393) Laboratory results reviewed by me Medications Administered Medications (Trade) Dose Ordered Sig/Rashawn Route Start Time Stop Time Status Last Admin Dose Admin Sodium Chloride 1,000 ml @ 125 mls/hr Q8H STAT IV 05/18/17 17:22 05/18/17 22:49 DC 05/18/17 18:37 125 MLS/HR Ondansetron HCl (Zofran Inj) 4 mg ONE ONCE IV 05/18/17 17:30 05/18/17 17:31 DC 05/18/17 18:36 4 MG Hydromorphone HCl (Dilaudid Inj) 1 mg NOW STAT IV 05/18/17 17:22 05/18/17 17:25 DC 05/18/17 18:38 1 MG Potassium Chloride (Klor-Con M10) 20 meq NOW STAT PO 05/18/17 20:19 05/18/17 20:21 DC 05/18/17 20:34 20 MEQ ED Course 1719: The patient was evaluated in room A02. A complete history and physical exam was performed. 1722: Ordered Hydromorphone HCl 1mg IV, Sodium Chloride 1000 ml @ 125 mls/hr IV 1730: Ordered Ondansetron HCl 4mg IV 1836: Review of EMR showed the patient had a CT of the abdomen and pelvis which showed no bowel obstruction, no free air, and no diverticulitis. A normal appendix was visualized. 185: I reevaluated the patient. She is still having LLQ pain after another physical examination. I told her that her recent CT was negative. She has requested another CT scan because she knows something is wrong with her. I told her if her CT was negative, she would be discharged on Flagyl for her C-Diff. 2010: CT does not show any acute pathology. I reevaluated the patient. Her vital signs are stable and resting comfortably. Patient will be discharged with a prescription for Flagyl for her C-Diff. She will follow up with her PCP. DISCHARGE - Plan of care discussed with patient and questions answered. The patient was given both verbal and printed discharge instructions. The patient verbalized understanding and ability to comply. The patient is to seek outpatient follow up as noted in the discharge instructions. The patient verbalized understanding and ability to comply. The patient is discharged in stable condition. The patient was instructed to return for worsening symptoms. 2019: Ordered Potassium Chloride 20meq PO Medical Decision Labs within normal limits with exception of potassium 3.3 which is replaced in the emergency department by mouth. Patient tolerated by mouth in the emergency department. CT does not show any acute pathology. I reevaluated the patient. Her vital signs are stable and resting comfortably. Patient will be discharged with a prescription for Flagyl for her C-Diff which is likely not resolved and thus the patient will be started on a repeat prescription for Flagyl. She will follow up with her PCP. DISCHARGE - Plan of care discussed with patient and questions answered. The patient was given both verbal and printed discharge instructions. The patient verbalized understanding and ability to comply. The patient is to seek outpatient follow up as noted in the discharge instructions. The patient verbalized understanding and ability to comply. The patient is discharged in stable condition. The patient was instructed to return for worsening symptoms. Medication Reconcilliation Current Medication List: was personally reviewed by me Blood Pressure Screening Patient's blood pressure: Elevated blood pressure Blood pressure disposition: Referred to PCP Impression Primary Impression: Abdominal pain Additional Impressions: Hypokalemia C. difficile colitis Scribe Attestation The scribe's documentation has been prepared under my direction and personally reviewed by me in its entirety. I confirm that the note above accurately reflects all work, treatment, procedures, and medical decision making performed by me. The chart was completed utilizing [employer] Speech voice recognition software. Grammatical errors, random word insertions, pronoun errors, and incomplete sentences are an occasional consequence of this system due to software limitations, ambient noise, and hardware issues. Any formal questions or concerns about the content, text, or information contained within the body of this dictation should be directly addressed to the physician for clarification. Departure Information Dispostion Home / Self-Care Prescriptions Metronidazole (FLAGYL) 500 Mg Tab 500 MG PO TID for 7 Days, #21 TAB Prov: Jamie Barbosa M.D. 05/18/17 Referrals No Doctor, Assigned (PCP) Forms HOME CARE DOCUMENTATION FORM, IMPORTANT VISIT INFORMATION Patient Instructions Abdominal Pain - [facility], C Diff Tx Bezlotoxumab, Hypokalemia Win, Piedad [facility] Additional Instructions Follow-up with your primary care physician in 1-7 days Problem Qualifiers Primary Impression: Abdominal pain Abdominal location: left lower quadrant Qualified Codes: R10.32 - Left lower quadrant pain
[2017-05-18] MEDS ORDERED: OPTIRAY 320 IV PRN (17:30)
[2017-05-18] MEDS ORDERED: ONDANSETRON INJ 2 MG/ML 2 ML VIAL IV ONE (17:30)
[2017-05-18 18:03] LABS: BASO % 0.2 %; BASO ABS # 0.02 K/uL (0-0.2); EOS % 0.4 %; EOS ABS # 0.04 K/uL (0-0.5); HEMATOCRIT 46.1 % (37-47); HEMOGLOBIN 16.2 g/dL (12.0-16.0); IG# 0.02 K/uL (0.00-0.02); LYMPH % 24.7 %; LYMPH ABS # 2.29 K/uL (1.2-3.4); MEAN CELL VOLUME 91.8 fL (80-100); MEAN CORPUSCULAR HEMOGLOBIN 32.3 pg (25-34); MEAN CORPUSCULAR HGB CONC 35.1 g/dl (32-36); MEAN PLATELET VOLUME 9.1 fL (7.4-10.4); MONO % 5.4 %; NEUT % 69.1 %; NEUT ABS # 6.42 K/uL (1.4-6.5); PLATELET COUNT 341 K/uL (130-400); RED CELL DISTRIBUTION WIDTH CV 13.5 % (11.5-14.5); WHITE BLOOD COUNT 9.29 K/uL (4.8-10.8)
[2017-05-18 18:27] LABS: ALBUMIN 3.9 gm/dl (3.4-5.0); CALCIUM 9.6 mg/dl (8.5-10.1); CREATININE 0.71 mg/dl (0.60-1.20); POTASSIUM 3.3 mmol/L (3.5-5.1)
[2017-05-18 18:30] LABS: TOTAL PROTEIN 7.6 gm/dl (6.4-8.2)
--- NOTE | 2017-05-18 19:53 | DIAGNOSTIC IMAGING REPORT ---
ABDOMEN AND PELVIS CT WITH IV CONTRAST CT DOSE: 317.24 mGy.cm HISTORY: Acute left lower quadrant abdominal pain persisent llq pain r/o diverticulitis TECHNIQUE: Multiaxial CT images of the abdomen and pelvis were performed following the use of intravenous contrast. A dose lowering technique was utilized adhering to the principles of ALARA. COMPARISON STUDY: CT abdomen pelvis 05/12/2017. FINDINGS: Calcified granuloma the right lower lobe with mild adjacent pleural parenchymal scarring. Mild subsegmental atelectasis of the lung bases. Inferior cardiac chambers are unremarkable. Liver, spleen, gallbladder, pancreas and adrenal glands are unremarkable. The kidneys, ureters and urinary bladder are also within normal limits. 1.2 cm low attenuating lesion involves the left fundal portion of the uterus which is unchanged and nonspecific and may reflect a leiomyoma. No adnexal mass lesions identified. Mild to moderate atherosclerosis of the aorta. No bulky adenopathy. Retroaortic left renal vein. There is no bowel obstruction identified. Moderate wall thickening of the mid sigmoid colon is redemonstrated without surrounding inflammatory stranding. Moderate colonic diverticulosis without definite evidence of acute diverticulitis. Normal appendix. Soft tissues are unremarkable. Bones appear intact. Severe intervertebral disc space narrowing at L4-L5. Dextroscoliosis of the lumbar spine. IMPRESSION: 1. Unchanged moderate wall thickening of the mid sigmoid colon without surrounding inflammatory stranding likely suggests combination of partial distention with wall hypertrophy from associated sigmoid diverticulosis. No evidence of acute colonic diverticulitis. 2. No bowel obstruction. 3. Normal appendix. Electronically signed by: Quinton Arce M.D. 05/18/2017 7:52 PM Dictated Date/Time: 05/18/2017 7:45 PM
[2017-05-18] MEDS ORDERED: POTASSIUM CHLORIDE 10 MEQ TABCR PO STA (20:19)
[2017-05-18] MEDS ORDERED: METR-162 PO (20:22)
[2017-05-18 20:30] VITALS: BP 151/94; PULSE 78; O2SAT 94
== END 2017-05-18 20:38 | disposition home or self-care (01) ==
LOC: C.EDB 16:43 → C.EDA 20:38
DX: A04.71 Enterocolitis due to Clostridium difficile, recurrent (principal); E87.6 Hypokalemia; R03.0 Elevated blood-pressure reading, without diagnosis of hypertension; J44.9 Chronic obstructive pulmonary disease, unspecified; K21.9 Gastro-esophageal reflux disease without esophagitis; F17.200 Nicotine dependence, unspecified, uncomplicated; F12.90 Cannabis use, unspecified, uncomplicated; Z79.891 Long term (current) use of opiate analgesic; Z83.3 Family history of diabetes mellitus

== ENCOUNTER 2017-06-24 09:37 | Emergency (ER) | payer OTHER ==
[~2017-06-24] VITALS: Ht 161.3 cm; Wt 69.0 kg
[~2017-06-24 09:37] MED LIST changes: +GABA-1219 PO; -GABA1CAP4 PO
[2017-06-24 09:43] VITALS: TEMP 36.5; Ht 161.3 cm; Wt 69.0 kg
--- NOTE | 2017-06-24 10:01 | EMERGENCY ROOM VISIT NOTE ---
History Report prepared by Jesusibe: Luna Burr Under the Supervision of: Dr. Liana Lake M.D. First contact with patient: 09:44 Chief Complaint: ABDOMINAL PAIN Stated Complaint: L LOWER PAIN AND SWOLLEN IN STOMACH AND BACK History of Present Illness The patient is a 57 year old female who presents to the Emergency Room with complaints of persistent abdominal pain. She rates her discomfort as an 8/10 in severity. She states her abdominal pain radiates into her back and "feels swollen". She called her PCP, Dr. Mancera with [facility], and he ordered her Meloxicam, but she states it has not provided any relief. She denies any history of bowel obstruction. She also denies any diarrhea or abnormal vaginal discharge. She notes her bowels have been "loose", but states "it's not diarrhea ". She has not vomited. The patient reports she has experienced similar pain for the past 1 year. She has had C-Diff "7 times in the past year" and has followed with Dr. Upton of [facility] in the past. 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 A total of 10 systems reviewed and were otherwise negative. Past Medical & Surgical Medical Problems: (1) Anxiety (2) Bipolar disorder (3) COPD, moderate (4) Fibromyalgia (5) GERD (gastroesophageal reflux disease) (6) Recurrent Clostridium difficile diarrhea Surgical Problems: (1) History of tubal ligation (2) Lipoma tumor removal (3) Previous section Family History Diabetes mellitus Social History Smoking Status: Current Every Day Smoker Alcohol Use: none Drug Use: marijuana Marital Status: single Housing Status: lives alone Occupation Status: disabled Current/Historical Medications Scheduled Calcium Carbonate-Vitamin D (Calcium 500+D), 1 TAB PO DAILY Calcium Polycarbophil (Fiber Tabs), 625 MG PO DAILY Cyanocobalamin (Vitamin B-12), 500 MCG PO DAILY Dicyclomine Hcl (Dicyclomine Hcl), 20 MG PO BID Ferrous Sulfate (Ferrous Sulfate), 325 MG PO DAILY Fish Oil (Misenheimer-3), 1,000 MG PO QAM Gabapentin (Gabapentin), 300 MG PO TID Metronidazole (Flagyl), 500 MG PO TID Probiotic Product (Align), 4 MG PO DAILY Ranitidine HCl (Ranitidine HCl), 150 MG PO BID Trazodone Hcl (Trazodone), 50 MG PO HS Vitamin E (Vitamin E 400 Iu), 800 INTER.UNIT PO DAILY Scheduled PRN Albuterol Sulf (Proventil 0.083% 2.5MG/3ML), 1 VIAL NEB Q6H PRN for SOB/Wheezing Alprazolam (Alprazolam), 0.5 MG PO TID PRN for Anxiety Cyclobenzaprine HCl (Cyclobenzaprine HCl), 10 MG PO HS PRN for Muscle Spasm Ipratropium-Albuterol (Combivent Respimat), 1 PUFF INH QID PRN for COPD Ketorolac Tromethamine (Toradol), 10 MG PO Q6 PRN for Pain Oxycodone/Acetaminophen 5MG/325MG (Percocet 5MG/325MG), 1 TABLET PO Q6H PRN for Pain Tramadol (Ultram), 1 TABS PO Q6 PRN for Pain Allergies Coded Allergies: Lorazepam (Verified Allergy, Mild, UNK, 06/24/17) BEE STING (Unverified Allergy, Unknown, "LUNGS CLOSE UP", 06/24/17) Diclofenac (Verified Allergy, Unknown, 06/24/17) Risperidone (Verified Allergy, Unknown, UNKNOWN, 06/24/17) Physical Exam Vital Signs Date Time Temp Pulse Resp B/P (MAP) Pulse Ox O2 Delivery O2 Flow Rate FiO2 06/24/17 12:37 59 20 139/87 99 Room Air 06/24/17 11:00 69 18 172/100 97 Room Air 06/24/17 10:12 69 20 169/107 100 Room Air 06/24/17 09:56 77 18 99 Room Air 06/24/17 09:50 70 06/24/17 09:43 36.5 66 22 172/104 100 Room Air Physical Exam Vital signs reviewed. General: Anxious-appearing 57 year old female, in some discomfort. HEENT: No scleral icterus, PERRLA, neck supple. Atraumatic. Cardiovascular: Regular rate and rhythm, no extra sounds. Pulmonary: Clear to auscultation bilaterally, normal work of breathing. Abdomen: Soft, tender to palpation in RLQ, no rebound or guarding, nondistended , positive bowel sounds. Musculoskeletal: Atraumatic, no peripheral edema. Neurologic: Patient awake alert and oriented x 3. Skin: Warm, dry, no rash Medical Decision & Procedures ER Provider Diagnostic Interpretation: Radiology results as stated below per my review and radiologist interpretation: ABDOMEN 2VIEW W/PA CHEST RTN CLINICAL HISTORY: 57 years-old Female presenting with LLQ abd pain. TECHNIQUE: PA view of the chest and supine and upright views of the abdomen were obtained. COMPARISON: 12/12/[address] from 05/18/2017. FINDINGS: Atherosclerosis of the aortic arch. Cardiac silhouette normal in size. Mildly coarsened lung markings. No focal opacity. No pleural effusion or pneumothorax. Mild distention of small bowel in the left mid abdomen, which may be mildly thick-walled very no bowel obstruction. No pneumoperitoneum. Allowing for bowel gas and stool, no calcifications to suggest nephrolithiasis. Multiple pelvic phleboliths noted. Degenerative changes of the spine. IMPRESSION: 1. No acute cardiopulmonary disease. 2. Mild small bowel wall thickening in the left mid abdomen, which could suggest enteritis. No evidence of bowel obstruction or free air. Electronically signed by: Greg Marin M.D. 06/24/2017 10:49 AM Laboratory Results 06/24/17 09:50 Red Blood Count 5.32, Mean Corpuscular Volume 94.7, Mean Corpuscular Hemoglobin 32.1, Mean Corpuscular Hemoglobin Concent 33.9, Mean Platelet Volume 9.1, Neutrophils (%) (Auto) 70.8, Lymphocytes (%) (Auto) 22.7, Monocytes (%) (Auto) 5.2, Eosinophils (%) (Auto) 0.9, Basophils (%) (Auto) 0.2, Neutrophils # (Auto) 7.47, Lymphocytes # (Auto) 2.39, Monocytes # (Auto) 0.55, Eosinophils # (Auto) 0.09, Basophils # (Auto) 0.02 06/24/17 09:50 Test 06/24/17 09:50 06/24/17 11:15 White Blood Count 10.54 K/uL (4.8-10.8) Red Blood Count 5.32 M/uL (4.2-5.4) Hemoglobin 17.1 g/dL (12.0-16.0) Hematocrit 50.4 % (37-47) Mean Corpuscular Volume 94.7 fL (80-100) Mean Corpuscular Hemoglobin 32.1 pg (25-34) Mean Corpuscular Hemoglobin Concent 33.9 g/dl (32-36) Platelet Count 345 K/uL (130-400) Mean Platelet Volume 9.1 fL (7.4-10.4) Neutrophils (%) (Auto) 70.8 % Lymphocytes (%) (Auto) 22.7 % Monocytes (%) (Auto) 5.2 % Eosinophils (%) (Auto) 0.9 % Basophils (%) (Auto) 0.2 % Neutrophils # (Auto) 7.47 K/uL (1.4-6.5) Lymphocytes # (Auto) 2.39 K/uL (1.2-3.4) Monocytes # (Auto) 0.55 K/uL (0.11-0.59) Eosinophils # (Auto) 0.09 K/uL (0-0.5) Basophils # (Auto) 0.02 K/uL (0-0.2) RDW Standard Deviation 47.4 fL (36.4-46.3) RDW Coefficient of Variation 13.8 % (11.5-14.5) Immature Granulocyte % (Auto) 0.2 % Immature Granulocyte # (Auto) 0.02 K/uL (0.00-0.02) Anion Gap 8.0 mmol/L (3-11) Est Creatinine Clear Calc Drug Dose 68.0 ml/min Estimated GFR () 87.5 Estimated GFR (Non- 75.5 BUN/Creatinine Ratio 19.7 (10-20) Calcium Level 9.8 mg/dl (8.5-10.1) Magnesium Level 2.2 mg/dl (1.8-2.4) Total Bilirubin 0.5 mg/dl (0.2-1) Direct Bilirubin 0.1 mg/dl (0-0.2) Aspartate Amino Transf (AST/SGOT) 14 U/L (15-37) Alanine Aminotransferase (ALT/SGPT) 31 U/L (12-78) Alkaline Phosphatase 110 U/L (45-117) Total Protein 8.0 gm/dl (6.4-8.2) Albumin 4.1 gm/dl (3.4-5.0) Lipase 105 U/L (73-393) Urine Color YELLOW Urine Appearance CLEAR (CLEAR) Urine pH 5.0 (4.5-7.5) Urine Specific [place] 1.015 (1.000-1.030) Urine Protein NEG (NEG) Urine Glucose (UA) NEG (NEG) Urine Ketones NEG (NEG) Urine Occult Blood TRACE (NEG) Urine Nitrite NEG (NEG) Urine Bilirubin NEG (NEG) Urine Urobilinogen NEG (NEG) Urine Leukocyte Esterase SMALL (NEG) Urine WBC (Auto) 1-5 /hpf (0-5) Urine RBC (Auto) 0-4 /hpf (0-4) Urine Hyaline Casts (Auto) 1-5 /lpf (0-5) Urine Epithelial Cells (Auto) 10-20 /lpf (0-5) Urine Bacteria (Auto) NEG (NEG) Date/Time Source Procedure Growth Status 06/24/17 11:15 Stool C.difficile Toxin B Gene (PCR) - Final No C. difficile toxin B gene detected Complete Laboratory results per my review. Medications Administered Medications (Trade) Dose Ordered Sig/Rashawn Route Start Time Stop Time Status Last Admin Dose Admin Morphine Sulfate (MoRPHine SULFATE INJ) 4 mg NOW STAT IV 06/24/17 10:04 06/24/17 10:08 DC 06/24/17 10:14 4 MG Ondansetron HCl (Zofran Inj) 4 mg NOW STAT IV 06/24/17 10:04 06/24/17 10:08 DC 06/24/17 10:14 4 MG ECG Per My Interpretation Indication: abdominal pain Rate (beats per minute): 62 Rhythm: normal sinus Findings: no acute ischemic change, no ectopy Change: Patient's electrocardiogram interpreted by me. ED Course 0955: Past medical records reviewed. The patient was evaluated in room A10. A complete history and physical examination was performed. 1004: Zofran 4 mg IV, Morphine Sulfate 4 mg IV. 1330: I reevaluated the patient. She states she has been doubling up on her Percocet's and stopped 3 days ago as it was not healthy to mask her pain with Narcotics. She states she stopped as she knows it is not healthy and she knows for sure she is not in narcotic withdrawal. The patient was offered 2 days worth of Ultram and will follow up with her PCP and Gastroenterology. Medical Decision Differential diagnosis Etiologies such as appendicitis, diverticulitis, PUD, biliary pathology, UTI, pancreatitis, obstruction, mesenteric ischemia, aortic pathology, infections, inflammatory bowel disease, renal colic, as well as others were entertained. This patient was evaluated and appeared to be in some discomfort. Physical examination is fairly unrevealing, there are no acute peritoneal signs on exam. The patient has had left lower quadrant abdominal pain for some time. She has had recurrent C. difficile infections. Laboratory work reveals a normal white blood cell count, normal liver enzymes. UA is negative. Abdominal x-ray series reveals a mild enteritis. Stool sample is negative for C. difficile, cultures are pending. The patient became anxious and tearful. She states she has been labeled as a drug seeker. She has been "doubling up" on her Percocet without any benefit. She states she stopped taking her narcotics 3 days ago because she didn't "feel it was healthy." She denies running out of her medications. I suggested that the patient may be in narcotic withdrawal however she denied this possibility. She insisted on something for her pain. Patient is currently taking metronidazole and Bentyl. She was encouraged to continue these medications. She was given a short prescription for Ultram to be used for the next several days until she can contact her PCP on Monday. Patient was advised to return to the emergency department for worsening of symptoms or any medical concerns. Medication Reconcilliation Current Medication List: was personally reviewed by me Blood Pressure Screening Patient's blood pressure: Elevated blood pressure Blood pressure disposition: Referred to PCP Impression Primary Impression: LLQ abdominal pain Scribe Attestation The scribe's documentation has been prepared under my direction and personally reviewed by me in its entirety. I confirm that the note above accurately reflects all work, treatment, procedures, and medical decision making performed by me. Departure Information Dispostion Home / Self-Care Prescriptions Tramadol (Ultram) 50 Mg Tab 1 TABS PO Q6 Y for Pain, #20 TAB Prov: Liana Lake M.D. 06/24/17 Referrals No Doctor, Assigned (PCP) Patient Instructions My [facility] Additional Instructions Diagnosis: Left lower quadrant abdominal pain Continue your medications as prescribed. Your stool is negative for C. difficile today. Contact gastroenterology in follow-up. Consider evaluation by [facility] [employer] [employer]. Return to the emergency department for worsening of symptoms or any medical concerns.
[2017-06-24] MEDS ORDERED: MoRPHine SULFATE 4 MG/ML 1 ML CARP\\VIAL IV STA (10:04)
[2017-06-24] MEDS ORDERED: ONDANSETRON INJ 2 MG/ML 2 ML VIAL IV STA (10:04)
[2017-06-24 10:24] LABS: BASO % 0.2 %; BASO ABS # 0.02 K/uL (0-0.2); EOS % 0.9 %; EOS ABS # 0.09 K/uL (0-0.5); HEMATOCRIT 50.4 % (37-47); HEMOGLOBIN 17.1 g/dL (12.0-16.0); IG# 0.02 K/uL (0.00-0.02); LYMPH % 22.7 %; LYMPH ABS # 2.39 K/uL (1.2-3.4); MEAN CELL VOLUME 94.7 fL (80-100); MEAN CORPUSCULAR HEMOGLOBIN 32.1 pg (25-34); MEAN CORPUSCULAR HGB CONC 33.9 g/dl (32-36); MEAN PLATELET VOLUME 9.1 fL (7.4-10.4); MONO % 5.2 %; MONO ABS # 0.55 K/uL (0.11-0.59); NEUT % 70.8 %; NEUT ABS # 7.47 K/uL (1.4-6.5); PLATELET COUNT 345 K/uL (130-400); RED CELL DISTRIBUTION WIDTH CV 13.8 % (11.5-14.5); RED CELL DISTRIBUTION WIDTH SD 47.4 fL (36.4-46.3); WHITE BLOOD COUNT 10.54 K/uL (4.8-10.8)
[2017-06-24 10:33] LABS: ALBUMIN 4.1 gm/dl (3.4-5.0); CALCIUM 9.8 mg/dl (8.5-10.1); CREATININE 0.85 mg/dl (0.60-1.20); POTASSIUM 3.9 mmol/L (3.5-5.1)
--- NOTE | 2017-06-24 10:50 | DIAGNOSTIC IMAGING REPORT ---
ABDOMEN 2VIEW W/PA CHEST RTN CLINICAL HISTORY: 57 years-old Female presenting with LLQ abd pain. TECHNIQUE: PA view of the chest and supine and upright views of the abdomen were obtained. COMPARISON: 12/12/[address] from 05/18/2017. FINDINGS: Atherosclerosis of the aortic arch. Cardiac silhouette normal in size. Mildly coarsened lung markings. No focal opacity. No pleural effusion or pneumothorax. Mild distention of small bowel in the left mid abdomen, which may be mildly thick-walled very no bowel obstruction. No pneumoperitoneum. Allowing for bowel gas and stool, no calcifications to suggest nephrolithiasis. Multiple pelvic phleboliths noted. Degenerative changes of the spine. IMPRESSION: 1. No acute cardiopulmonary disease. 2. Mild small bowel wall thickening in the left mid abdomen, which could suggest enteritis. No evidence of bowel obstruction or free air. Electronically signed by: Greg Marin M.D. 06/24/2017 10:49 AM Dictated Date/Time: 06/24/2017 10:46 AM
[2017-06-24 12:37] VITALS: BP 139/87; PULSE 59; O2SAT 99
[2017-06-24] MEDS ORDERED: TRAM-10 PO (14:17)
== END 2017-06-24 14:14 | disposition home or self-care (01) ==
LOC: C.EDB 09:39 → C.EDA 14:14
DX: R10.32 Left lower quadrant pain (principal); F31.9 Bipolar disorder, unspecified; J44.9 Chronic obstructive pulmonary disease, unspecified; M79.7 Fibromyalgia; K21.9 Gastro-esophageal reflux disease without esophagitis; F17.200 Nicotine dependence, unspecified, uncomplicated; Z86.19 Personal history of other infectious and parasitic diseases; Z88.8 Allergy status to other drugs, medicaments and biological substances; Z91.030 Bee allergy status; Z83.3 Family history of diabetes mellitus

== ENCOUNTER 2017-06-26 14:50 | Emergency (ER) | payer OTHER ==
[~2017-06-26] VITALS: Ht 160 cm; Wt 69.0 kg
[~2017-06-26 14:50] MED LIST changes: +TRAM-10 PO
[2017-06-26 14:54] VITALS: TEMP 37; Ht 160 cm; Wt 69.0 kg
[2017-06-26] MEDS ORDERED: SODIUM CHLORIDE 0.9% 1000ML 1,000 ML IV STA (15:13)
[2017-06-26] MEDS ORDERED: KETOROLAC TROMETHAMINE 30 MG/ML VIAL IV STA (15:13)
[2017-06-26] MEDS ORDERED: ONDANSETRON INJ 2 MG/ML 2 ML VIAL IV STA (15:13)
[2017-06-26] MEDS ORDERED: FENTANYL CITRATE INJ 50 MCG/1 ML 2 ML VIAL IV PRN (15:15)
--- NOTE | 2017-06-26 15:42 | DIAGNOSTIC IMAGING REPORT ---
SINGLE VIEW CHEST CLINICAL HISTORY: Generalized abdominal pain. FINDINGS: An AP, portable, upright chest radiograph is compared to study dated 06/24/2017. The examination is degraded by portable technique and patient rotation. The cardiomediastinal silhouette is unremarkable. Chronic interstitial thickening is similar to previous. No airspace consolidation or pleural effusion is identified. No pneumothorax is seen. The skeletal structures are osteopenic. The bony thorax is grossly intact. There is mild thoracic scoliosis. IMPRESSION: No acute cardiopulmonary abnormality. Electronically signed by: Narendra Guerrero M.D. 06/26/2017 3:41 PM Dictated Date/Time: 06/26/2017 3:40 PM
[2017-06-26 15:48] LABS: BASO % 0.2 %; BASO ABS # 0.02 K/uL (0-0.2); EOS % 0.8 %; EOS ABS # 0.09 K/uL (0-0.5); HEMATOCRIT 48.7 % (37-47); HEMOGLOBIN 17.3 g/dL (12.0-16.0); IG# 0.03 K/uL (0.00-0.02); LYMPH % 42.5 %; LYMPH ABS # 4.78 K/uL (1.2-3.4); MEAN CELL VOLUME 93.1 fL (80-100); MEAN CORPUSCULAR HEMOGLOBIN 33.1 pg (25-34); MEAN CORPUSCULAR HGB CONC 35.5 g/dl (32-36); MEAN PLATELET VOLUME 8.9 fL (7.4-10.4); MONO % 5.8 %; MONO ABS # 0.65 K/uL (0.11-0.59); NEUT % 50.4 %; NEUT ABS # 5.67 K/uL (1.4-6.5); PLATELET COUNT 357 K/uL (130-400); RED CELL DISTRIBUTION WIDTH CV 13.4 % (11.5-14.5); RED CELL DISTRIBUTION WIDTH SD 45.8 fL (36.4-46.3); WHITE BLOOD COUNT 11.24 K/uL (4.8-10.8)
[2017-06-26 15:55] LABS: PTT PATIENT 25.4 SECONDS (21.0-31.0)
[2017-06-26 16:05] LABS: ALBUMIN 4.2 gm/dl (3.4-5.0); ALT/SGPT 33 U/L (12-78); AST/SGOT 17 U/L (15-37); BLOOD UREA NITROGEN 18 mg/dl (7-18); CALCIUM 9.4 mg/dl (8.5-10.1); CARBON DIOXIDE 22 mmol/L (21-32); CREATININE 0.84 mg/dl (0.60-1.20); GLUCOSE 82 mg/dl (70-99); LIPASE 124 U/L (73-393); POTASSIUM 3.2 mmol/L (3.5-5.1); SODIUM 138 mmol/L (136-145)
[2017-06-26 16:06] LABS: ALKALINE PHOSPHATASE 119 U/L (45-117); TOTAL PROTEIN 8.4 gm/dl (6.4-8.2)
[2017-06-26] MEDS ORDERED: OPTIRAY 320 IV PRN (17:45)
--- NOTE | 2017-06-26 18:19 | DIAGNOSTIC IMAGING REPORT ---
ABD/PELVIS IV AND ORAL CONT CT DOSE: 324.25 mGy.cm HISTORY: Pain. Nausea. ABDOMINAL PAIN/GI TECHNIQUE: Multiaxial CT images of the abdomen and pelvis were performed following the use of intravenous and oral contrast. A dose lowering technique was utilized adhering to the principles of ALARA. COMPARISON STUDY: 05/18/2017 FINDINGS: Minimal scattered basilar atelectasis. Calcified granuloma right lung base unchanged from prior studies. Liver enhances uniformly. Spleen is uniform. Kidneys negative for hydronephrosis. Normal appendix. Nonobstructive bowel pattern. Mild wall thickening of the sigmoid colon which is been described previously. There is perhaps a trace of pericolonic infiltrative change negative of minimal low-grade acute diverticulitis. No evidence for abscess collection or obstruction. IMPRESSION: 1. Mild chronic sigmoid diverticulosis. 2. Minimal pericolonic infiltrative changes may indicate a minimal component of superimposed acute diverticulitis. 3. No evidence for abscess collection or obstruction. 4. All remaining components of the study are unremarkable. The above report was generated using voice recognition software. It may contain grammatical, syntax or spelling errors. Electronically signed by: Kyrie Rojas M.D. 06/26/2017 6:18 PM Dictated Date/Time: 06/26/2017 6:14 PM
[2017-06-26] MEDS ORDERED: METR-163 PO (18:37)
[2017-06-26] MEDS ORDERED: CIPR1TAB10 PO (18:37)
--- NOTE | 2017-06-26 18:37 | EMERGENCY ROOM VISIT NOTE ---
History Report prepared by Ashley: Skip Negrete Under the Supervision of: Dr. Huseyin Wilkinson D.O. First contact with patient: 15:01 Chief Complaint: ABDOMINAL PAIN Stated Complaint: BOWEL INFLAMATION, SEVERE PAIN History of Present Illness The patient is a 57 year old female who presents to the Emergency Room with complaints of persistent severe LLQ abdominal pain for one week. She notes the pain is radiating to her back. She was recently seen in the ED for LLQ abdominal pain two days ago. A CT scan did not show anything significant, though it showed mild small bowel thickening, suggesting enteritis. She was prescribed Tramadol and notes that it initially helped, though she has had no relief today. She has an appointment scheduled for tomorrow to follow up with a candle wicker. She states her PCP informed her to come to the ED for further evaluation. She reports eating breakfast at 1100 today and almost immediately after the pain became severe. She notes that she has been sweating since this afternoon. She has taken digestive medication, Toradol, and Pepto Bismol, though nothing has seemed to help relieve the pain. She states the only thing that seemed to help the pain was Morphine Sulfate, which she states was administered to her via EMS two days ago. She states that she regularly takes Percocet for chronic back pain due to a bulging disc and cluster lipomas. She states that she had taken herself off the Percocet for two days prior to coming to the ED two days ago. She states that her PCP informed her to take two Percocet for her current abdominal pain. She denies this is withdrawals from Percocet. She states that she is scheduled for an endoscopy for July 21, 2017. She denies any recorded fevers. Source of History: patient Onset: one week Position: abdomen (LLQ) Symptom Intensity: severe Timing: other (persistent) Associated Symptoms: + back pain, No fevers Note: She notes sweating. Review of Systems See HPI for pertinent positives & negatives. A total of 10 systems reviewed and were otherwise negative. Past Medical & Surgical Medical Problems: (1) Anxiety (2) Bipolar disorder (3) COPD, moderate (4) Fibromyalgia (5) GERD (gastroesophageal reflux disease) (6) Recurrent Clostridium difficile diarrhea Surgical Problems: (1) History of tubal ligation (2) Lipoma tumor removal (3) Previous section Family History Diabetes mellitus Social History Smoking Status: Current Every Day Smoker Alcohol Use: none Drug Use: marijuana Marital Status: single Housing Status: lives alone Occupation Status: disabled Current/Historical Medications Scheduled Calcium Carbonate-Vitamin D (Calcium 500+D), 1 TAB PO DAILY Calcium Polycarbophil (Fiber Tabs), 625 MG PO DAILY Ciprofloxacin Hcl (Cipro), 1 TAB PO BID Cyanocobalamin (Vitamin B-12), 500 MCG PO DAILY Dicyclomine Hcl (Dicyclomine Hcl), 20 MG PO BID Ferrous Sulfate (Ferrous Sulfate), 325 MG PO DAILY Fish Oil ([place]-3), 1,000 MG PO QAM Gabapentin (Gabapentin), 300 MG PO TID Metronidazole (Flagyl), 500 MG PO TID Metronidazole (Flagyl), 500 MG PO TID Probiotic Product (Align), 4 MG PO DAILY Ranitidine HCl (Ranitidine HCl), 150 MG PO BID Trazodone Hcl (Trazodone), 50 MG PO HS Vitamin E (Vitamin E 400 Iu), 800 INTER.UNIT PO DAILY Scheduled PRN Albuterol Sulf (Proventil 0.083% 2.5MG/3ML), 1 VIAL NEB Q6H PRN for SOB/Wheezing Alprazolam (Alprazolam), 0.5 MG PO TID PRN for Anxiety Cyclobenzaprine HCl (Cyclobenzaprine HCl), 10 MG PO HS PRN for Muscle Spasm Ipratropium-Albuterol (Combivent Respimat), 1 PUFF INH QID PRN for COPD Ketorolac Tromethamine (Toradol), 10 MG PO Q6 PRN for Pain Oxycodone/Acetaminophen 5MG/325MG (Percocet 5MG/325MG), 1 TABLET PO Q6H PRN for Pain Tramadol (Ultram), 1 TABS PO Q6 PRN for Pain Allergies Coded Allergies: Lorazepam (Verified Allergy, Mild, UNK, 06/24/17) BEE STING (Unverified Allergy, Unknown, "LUNGS CLOSE UP", 06/24/17) Diclofenac (Verified Allergy, Unknown, 06/24/17) Risperidone (Verified Allergy, Unknown, UNKNOWN, 06/24/17) Physical Exam Vital Signs Date Time Temp Pulse Resp B/P (MAP) Pulse Ox O2 Delivery O2 Flow Rate FiO2 06/26/17 17:00 78 150/83 97 Room Air 06/26/17 14:54 37.0 94 16 164/99 97 Room Air Physical Exam CONSTITUTIONAL/VITAL SIGNS: Reviewed / noted above. GENERAL: Non-toxic in appearance. INTEGUMENTARY: Warm, dry, and Carey. HEAD: Normocephalic. EYES: without scleral icterus or trauma. ENT/OROPHARYNX: clear and moist. LYMPHADENOPATHY/NECK: Is supple without lymphadenopathy or meningismus. RESPIRATORY: Lungs clear and equal. CARDIOVASCULAR: Regular rate and rhythm. GI/ABDOMEN: Soft, mild tenderness to palpation in LLQ. No organomegaly or pulsatile mass. No rebound or guarding. Normal bowel sounds. EXTREMITIES: Warm and well perfused. BACK: No CVA tenderness. NEUROLOGICAL: Intact without focal deficits. PSYCHIATRIC: normal affect. MUSCULOSKELETAL: Normally developed with good muscle tone. Medical Decision & Procedures ER Provider Diagnostic Interpretation: Radiology results as stated below per my review and radiologist interpretation: SINGLE VIEW CHEST CLINICAL HISTORY: Generalized abdominal pain. FINDINGS: An AP, portable, upright chest radiograph is compared to study dated 06/24/2017. The examination is degraded by portable technique and patient rotation. The cardiomediastinal silhouette is unremarkable. Chronic interstitial thickening is similar to previous. No airspace consolidation or pleural effusion is identified. No pneumothorax is seen. The skeletal structures are osteopenic. The bony thorax is grossly intact. There is mild thoracic scoliosis. IMPRESSION: No acute cardiopulmonary abnormality. Electronically signed by: Narendra Guerrero M.D. 06/26/2017 3:41 PM Dictated Date/Time: 06/26/2017 3:40 PM ABD/PELVIS IV AND ORAL CONT CT DOSE: 324.25 mGy.cm HISTORY: Pain. Nausea. ABDOMINAL PAIN/GI TECHNIQUE: Multiaxial CT images of the abdomen and pelvis were performed following the use of intravenous and oral contrast. A dose lowering technique was utilized adhering to the principles of ALARA. COMPARISON STUDY: 05/18/2017 FINDINGS: Minimal scattered basilar atelectasis. Calcified granuloma right lung base unchanged from prior studies. Liver enhances uniformly. Spleen is uniform. Kidneys negative for hydronephrosis. Normal appendix. Nonobstructive bowel pattern. Mild wall thickening of the sigmoid colon which is been described previously. There is perhaps a trace of pericolonic infiltrative change negative of minimal low-grade acute diverticulitis. No evidence for abscess collection or obstruction. IMPRESSION: 1. Mild chronic sigmoid diverticulosis. 2. Minimal pericolonic infiltrative changes may indicate a minimal component of superimposed acute diverticulitis. 3. No evidence for abscess collection or obstruction. 4. All remaining components of the study are unremarkable. The above report was generated using voice recognition software. It may contain grammatical, syntax or spelling errors. Electronically signed by: Kyrie Rojas M.D. 06/26/2017 6:18 PM Dictated Date/Time: 06/26/2017 6:14 PM Laboratory Results 06/26/17 15:37 Red Blood Count 5.23, Mean Corpuscular Volume 93.1, Mean Corpuscular Hemoglobin 33.1, Mean Corpuscular Hemoglobin Concent 35.5, Mean Platelet Volume 8.9, Neutrophils (%) (Auto) 50.4, Lymphocytes (%) (Auto) 42.5, Monocytes (%) (Auto) 5.8, Eosinophils (%) (Auto) 0.8, Basophils (%) (Auto) 0.2, Neutrophils # (Auto) 5.67, Lymphocytes # (Auto) 4.78, Monocytes # (Auto) 0.65, Eosinophils # (Auto) 0.09, Basophils # (Auto) 0.02 06/26/17 15:37 Test 06/26/17 15:31 06/26/17 15:37 Urine Color YELLOW Urine Appearance CLEAR (CLEAR) Urine pH 6.5 (4.5-7.5) Urine Specific [place] 1.023 (1.000-1.030) Urine Protein NEG (NEG) Urine Glucose (UA) NEG (NEG) Urine Ketones NEG (NEG) Urine Occult Blood 1+ (NEG) Urine Nitrite NEG (NEG) Urine Bilirubin NEG (NEG) Urine Urobilinogen NEG (NEG) Urine Leukocyte Esterase NEG (NEG) Urine WBC (Auto) 1-5 /hpf (0-5) Urine RBC (Auto) 5-10 /hpf (0-4) Urine Hyaline Casts (Auto) 1-5 /lpf (0-5) Urine Epithelial Cells (Auto) 20-30 /lpf (0-5) Urine Bacteria (Auto) NEG (NEG) White Blood Count 11.24 K/uL (4.8-10.8) Red Blood Count 5.23 M/uL (4.2-5.4) Hemoglobin 17.3 g/dL (12.0-16.0) Hematocrit 48.7 % (37-47) Mean Corpuscular Volume 93.1 fL (80-100) Mean Corpuscular Hemoglobin 33.1 pg (25-34) Mean Corpuscular Hemoglobin Concent 35.5 g/dl (32-36) Platelet Count 357 K/uL (130-400) Mean Platelet Volume 8.9 fL (7.4-10.4) Neutrophils (%) (Auto) 50.4 % Lymphocytes (%) (Auto) 42.5 % Monocytes (%) (Auto) 5.8 % Eosinophils (%) (Auto) 0.8 % Basophils (%) (Auto) 0.2 % Neutrophils # (Auto) 5.67 K/uL (1.4-6.5) Lymphocytes # (Auto) 4.78 K/uL (1.2-3.4) Monocytes # (Auto) 0.65 K/uL (0.11-0.59) Eosinophils # (Auto) 0.09 K/uL (0-0.5) Basophils # (Auto) 0.02 K/uL (0-0.2) RDW Standard Deviation 45.8 fL (36.4-46.3) RDW Coefficient of Variation 13.4 % (11.5-14.5) Immature Granulocyte % (Auto) 0.3 % Immature Granulocyte # (Auto) 0.03 K/uL (0.00-0.02) Prothrombin Time 10.0 SECONDS (9.0-12.0) Prothromb Time International Ratio 1.0 (0.9-1.1) Activated Partial Thromboplast Time 25.4 SECONDS (21.0-31.0) Partial Thromboplastin Ratio 1.0 Anion Gap 12.0 mmol/L (3-11) Est Creatinine Clear Calc Drug Dose 68.0 ml/min Estimated GFR () 88.8 Estimated GFR (Non- 76.6 BUN/Creatinine Ratio 21.7 (10-20) Calcium Level 9.4 mg/dl (8.5-10.1) Total Bilirubin 0.3 mg/dl (0.2-1) Direct Bilirubin < 0.1 mg/dl (0-0.2) Aspartate Amino Transf (AST/SGOT) 17 U/L (15-37) Alanine Aminotransferase (ALT/SGPT) 33 U/L (12-78) Alkaline Phosphatase 119 U/L (45-117) Total Protein 8.4 gm/dl (6.4-8.2) Albumin 4.2 gm/dl (3.4-5.0) Lipase 124 U/L (73-393) Laboratory results as stated above per my review. Medications Administered Medications (Trade) Dose Ordered Sig/Rashawn Route Start Time Stop Time Status Last Admin Dose Admin Sodium Chloride 1,000 ml @ 999 mls/hr Q1H1M STAT IV 06/26/17 15:13 06/26/17 16:13 DC 06/26/17 15:51 999 MLS/HR Ondansetron HCl (Zofran Inj) 4 mg NOW STAT IV 06/26/17 15:13 06/26/17 15:20 DC 06/26/17 15:51 4 MG Ketorolac Tromethamine (Toradol Inj) 30 mg NOW STAT IV 06/26/17 15:13 06/26/17 15:20 DC 06/26/17 15:52 30 MG ED Course 1506: Previous medical records were reviewed. The patient was evaluated in room B11B. A complete history and physical examination was performed. 1513: Ordered Toradol 30 mg IV, Zofran 4 mg IV, and Sodium Chloride 1.000 ml @ 999 mls/hr IV 1515: Ordered Fentanyl Citrate 50 mcg IV 1838: I reassessed the patient at this time. She is feeling better and resting comfortably. I discussed the results and treatment plan with the patient. I answered all pertaining questions that she had. She expressed understanding and verbalized agreement. The patient will be discharged home. Medical Decision Differential considered: pancreatitis, hepatitis, or acute cholecystitis, AAA, UTI, pyelonephritis, kidney stones, appendicitis, diverticulitis, shingles, bowel obstruction mesenteric ischemia, intussusception, hernia, testicular torsion, ovarian torsion, ruptured ovarian cyst, ectopic , . This is a 57-year-old female who presents to the ED with a chief complaint of left-sided abdominal pain. The patient states that she has had the pain for about a week. The patient was seen here 2 days ago and was also seen on 18 May. She was having abdominal pain at that time. At that time there is a CT scan that did not show any significant abnormalities. The patient reports that she did not take her Percocet today to see how bad her pain was. She came in to the ED for evaluation of this. Her exam reveals mild tenderness to the left lower quadrant. CBC is unremarkable as is his complete metabolic panel. Urine did not show infection. Lipase was negative, chest x-ray did not show acute process. CT scan of the pelvis reveals minimal acute diverticulitis. The patient was discharged on Cipro and Flagyl. She is felt to be stable for discharge. She was treated with IV Toradol, IV fentanyl, IV fluids and IV Zofran while here. Medication Reconcilliation Current Medication List: was personally reviewed by me Blood Pressure Screening Patient's blood pressure: Elevated blood pressure Blood pressure disposition: Elevated BP felt to be situational Impression Primary Impression: Acute diverticulitis Scribe Attestation The scribe's documentation has been prepared under my direction and personally reviewed by me in its entirety. I confirm that the note above accurately reflects all work, treatment, procedures, and medical decision making performed by me. Departure Information Dispostion Home / Self-Care Prescriptions Metronidazole (Flagyl) 500 Mg Tab 500 MG PO TID, #30 TAB Prov: Huseyin Wilkinson D.O. 06/26/17 Ciprofloxacin Hcl (CIPRO) 500 Mg Tab 1 TAB PO BID for 10 Days, #20 TAB Prov: Huseyin Wilkinson D.O. 06/26/17 Referrals Andre Mancera D.O. (PCP) Forms Call Back Authorization, HOME CARE DOCUMENTATION FORM, IMPORTANT VISIT INFORMATION Patient Instructions ED Diverticulitis, My [facility] Additional Instructions Cipro and Flagyl as prescribed. Follow-up with your doctor for further care and evaluation in 1-2 days. Return to the emergency department for worsening or new symptoms or any concerns. You have been examined and treated today on an emergency basis only. This is not a substitute for, or an effort to provide, complete comprehensive medical care. It is impossible to recognize and treat all injuries or illnesses in a single emergency department visit. It is therefore important that you follow up closely with your doctor. Call as soon as possible for an appointment.
[2017-06-26 18:58] VITALS: BP 187/110; PULSE 83; O2SAT 93
== END 2017-06-26 18:59 | disposition home or self-care (01) ==
LOC: C.EDB 14:52
DX: R10.32 Left lower quadrant pain (principal); F31.9 Bipolar disorder, unspecified; J44.9 Chronic obstructive pulmonary disease, unspecified; M79.7 Fibromyalgia; F17.200 Nicotine dependence, unspecified, uncomplicated; F41.9 Anxiety disorder, unspecified; Z79.899 Other long term (current) drug therapy; Z88.8 Allergy status to other drugs, medicaments and biological substances; Z83.3 Family history of diabetes mellitus

== ENCOUNTER 2018-07-13 09:34 | Inpatient (IN) ==
[2018-07-13] MEDS ORDERED: KETOROLAC TROMETHAMINE 15 MG/ML VIAL IV STA (09:46)
[2018-07-13] MEDS ORDERED: HYDROmorphone INJ 0.5 MG/0.5 ML SYR IV STA (09:46)
[2018-07-13] MEDS ORDERED: DICYCLOMINE HCL 10 MG/ML 2 ML AMP/VIAL IM ONE (09:51)
[2018-07-13] MEDS ORDERED: SODIUM CHLORIDE 0.9% 1000ML 1,000 ML IV SCH (10:00)
[2018-07-13 10:21] LABS: Basophils # (auto) 0.01 K/uL (0-0.2); Basophils % (auto) 0.1 %; Eosinophils # (auto) 0.07 K/uL (0-0.5); Eosinophils % (auto) 0.6 %; Hematocrit (blood only) 48.9 % (37-47); Hemoglobin 16.8 g/dL (12.0-16.0); Immature Granulocytes # (auto) 0.05 K/uL (0.00-0.02); Immature Granulocytes % (auto) 0.4 %; Lymphocytes # (auto) 2.01 K/uL (1.2-3.4); Lymphocytes % (auto) 16.1 %; Mean Corpuscular Hgb Conc 34.4 g/dL (32-36); Mean Corpuscular Volume 94.2 fL (80-100); Monocytes # (auto) 0.51 K/uL (0.11-0.59); Monocytes % (auto) 4.1 %; Neutrophils % (auto) 78.7 %; Platelet Count 366 K/uL (130-400); RDW Coefficient of Variation 13.5 % (11.5-14.5); RDW Standard Deviation 46.5 fL (36.4-46.3); Red Blood Count 5.19 M/uL (4.2-5.4); White Blood Count 12.45 K/uL (4.8-10.8)
[2018-07-13 10:39] LABS: Albumin Level 4.1 gm/dl (3.4-5.0); BUN Creatinine Ratio 15.1 (10-20); Calcium 9.8 mg/dl (8.5-10.1); Creatinine Clr Calc Pharmacy 60.4 ml/min; Est GFR (African American) 89.5; Est GFR (Non-African American) 77.2; Potassium 3.9 mmol/L (3.5-5.1)
[2018-07-13 10:42] LABS: Albumin Globulin Ratio 1.1 (0.9-2); Bilirubin,Total 0.5 mg/dl (0.2-1); Globulin 3.8 gm/dl (2.5-4.0); Total Protein 7.9 gm/dl (6.4-8.2)
[2018-07-13] MEDS ORDERED: IOVERSOL 100ml IV PRN (10:50)
--- NOTE | 2018-07-13 11:07 | XRay Report ---
XR chest 1V portable CLINICAL HISTORY: abdominal pain pain COMPARISON STUDY: 09/25/2017 FINDINGS: Subtle interstitial prominence. No well-defined focal infiltrate. No significant cardiac en largement. Diaphragms are smooth. Small stable calcified granuloma right base. IMPRESSION: Slight interstitial prominence with the chest otherwise negative. The above report was generated using voice recognition software. It may contain grammatical, syntax or spelling errors. Electronically signed by: Kyrie Rojas M.D. 07/13/2018 11:06 AM
--- NOTE | 2018-07-13 11:16 | CT Scan Report ---
CT SCAN OF THE ABDOMEN AND PELVIS WITH IV CONTRAST CLINICAL HISTORY: Left lower quadrant abdominal pain. COMPARISON STUDY: Multiple prior abdominal CT scans, most recently dated 12/31/2017. TECHNIQUE: Following the IV administration of 92 cc of Optiray 320, CT scan of the abdomen and pelvi s is performed from the lung bases to the proximal femora. Images are reviewed in the axial, sagittal , and coronal planes. IV contrast was administered without complication. A dose lowering technique wa s utilized adhering to the principles of ALARA. CT DOSE: 398.16 mGy.cm FINDINGS: Lung bases: The heart is normal in size and without pericardial effusion. There is no airspace consol idation or pleural effusion. Bibasilar scarring/atelectasis is noted. A large calcified granuloma see n in the right lower lobe. Liver: The contrast-enhanced liver is normal in top normal in size. The liver demonstrates diffusely diminished attenuation consistent with hepatic steatosis. Fatty sparing is seen adjacent to gallbladd er fossa. There is no intrahepatic biliary ductal dilatation. The hepatic veins and portal veins are patent. Gallbladder: Unremarkable. Spleen: Normal in size and attenuation. Pancreas: Unremarkable. Adrenal glands: Unremarkable. Kidneys: The contrast enhanced kidneys are normal in size and without hydronephrosis. The kidneys enh ance symmetrically. A retroaortic left renal vein is incidentally noted. Abdominal vasculature: The abdominal aorta is normal in course and caliber noting moderate atheroscle rotic calcification. Bowel: The colon is largely decompressed. There is mild wall thickening suggested throughout the colo n, with mild mucosal hyperemia and an air-fluid level seen in the cecum. The appearance suggests a mi ld nonspecific colitis. There is mild colonic diverticulosis without CT evidence of acute diverticuli tis. No bowel obstruction is identified. The appendix is well-visualized and normal. Peritoneum: There is no intraperitoneal free air or abdominal ascites. There is a small fat-containin g umbilical hernia. Lymphadenopathy: None. Pelvic viscera: The bladder is normal as imaged. 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 The uterus is otherwise normal in appearance. No adnexal lesion is seen. Foci of subcutaneous gas within the right gluteal region are likely related to subcutaneous injections. Skeletal structures: The skeletal structures are osteopenic. Moderate lumbosacral spondylosis is obse rved. No lytic or blastic lesions are seen. IMPRESSION: 1. Findings suggest a mild nonspecific colitis. Clinical correlation will be required. 2. Hepatomegaly and hepatic steatosis. 3. Additional findings as above. Electronically signed by: Narendra Guerrero M.D. 07/13/2018 11:14 AM
[2018-07-13] MEDS ORDERED: metroNIDAZOLE 250 MG TAB PO STA (11:28)
[2018-07-13] MEDS ORDERED: CIPROFLOXACIN 500 MG TAB PO STA (11:28)
[2018-07-13] MEDS ORDERED: ACETAMINOPHEN 1,000 MG/100 ML VIAL IV STA (11:28)
--- NOTE | 2018-07-13 11:49 | Emergency Department Note ---
Entered by Shawna Hernandez acting as a scribe for Karthik Cote M.D. History of Present Illness General Chief complaint: Abdominal Pain Source: patient and corporate sales representative Limitations: no limitations History of Present Illness Onset (ago): day(s) (this morning) Location: abdomen Radiation: back Pain Consistency: + other (worsening) Quality: + other ( The patient describes the pain as excruciating and states that it feels like her abdomen is blowing up.) Associated symptoms: + other (The patient complains of abdominal pain. The patient denies diarrhea.); no nausea/vomiting (The patient denies vomiting, nausea, and diarrhea.) The patient is a 58 year old female with a history of diverticulitis and C-diff who presents to the ED with complaints of worsening abdominal pain that onset this morning. She notes that the pain is radiating into her back. The patient describes the pain as excruciating and states that it feels like her abdomen is blowing up. The patient denies vomiting, nausea, and diarrhea. She denies taking any pain medication. Home Medications Home Medications Medication Instructions Recorded Confirmed Type Bifidobacterium infantis [Align] 4 mg PO DAILY 12/31/17 07/13/18 History albuterol sulfate 2.5 mg INHALATION QID PRN 12/31/17 07/13/18 History bupropion HCl [Wellbutrin SR] 200 mg PO BID 12/31/17 07/13/18 History calcium carbonate-vitamin D3 1 tab PO QAM 12/31/17 07/13/18 History [Calcium 500 + D (D3)] cyanocobalamin (vitamin B-12) 500 mcg PO QAM 12/31/17 07/13/18 History [Vitamin B-12] cyclobenzaprine 10 mg PO HS PRN 12/31/17 07/13/18 History dicyclomine 20 mg PO Q6H PRN 12/31/17 07/13/18 History ferrous sulfate 325 mg PO QAM 12/31/17 07/13/18 History fluticasone propionate [Flonase 2 spray INTRANASAL BID PRN 12/31/17 07/13/18 History Allergy Relief] gabapentin [Neurontin] 300 mg PO TID 12/31/17 07/13/18 History ipratropium-albuterol [Combivent 1 puff INHALATION QID PRN 12/31/17 07/13/18 History Respimat] omega [id number] oil [Fish Oil] 1,000 mg PO QAM 12/31/17 07/13/18 History oxycodone-acetaminophen [Percocet] 1 tab PO 5XD 12/31/17 07/13/18 History ranitidine HCl [Zantac] 150 mg PO BID 12/31/17 07/13/18 History vitamin E 800 unit PO DAILY 12/31/17 07/13/18 History ciprofloxacin HCl 500 mg PO Q12H 7 Days #14 tab 07/12/18 07/13/18 Rx alprazolam 0.5 mg PO TID PRN 07/13/18 07/13/18 History lisinopril 20 mg PO QAM 07/13/18 07/13/18 History metronidazole [Flagyl] 500 mg PO TID 07/13/18 07/13/18 History trazodone 50 mg PO HS 07/13/18 07/13/18 History wheat dextrin-calcium carb 1 tab PO DAILY 07/13/18 07/13/18 History Allergies Allergy/AdvReac Type Severity Reaction Status Date / Time lorazepam Allergy Mild UNK Verified 07/13/18 11:02 bee venom protein (honey bee) Allergy Unknown "LUNGS Unverified 07/13/18 11:02 CLOSE UP" capsaicin Allergy Unknown Verified 07/13/18 11:02 diclofenac Allergy Unknown Verified 07/13/18 11:02 Diclopak Allergy Unknown Verified 06/24/17 10:37 risperidone Allergy Unknown UNKNOWN Verified 07/13/18 11:02 Past Med/Surg History Medical History Marijuana use (Chronic) Tobacco abuse (Chronic) C. difficile diarrhea (Resolved) Diverticulitis (Resolved) Fibromyalgia (Chronic) Bipolar disorder (Chronic) Anxiety (Chronic) Hypertension (Chronic) COPD, moderate (Chronic) GERD (gastroesophageal reflux disease) (Chronic) Recurrent Clostridium difficile diarrhea (Resolved) Colitis (Inactive) Surgical History Previous section (Resolved) History of tubal ligation (Resolved) Social History Preferred Language: Thai Communication Ability: Effective Binding End Stitcher Required: No Beliefs That Will Affect Care: None Current Living Situation: Alone Other Information That Helps Us Care for You: No Feels Safe at Home: Yes Safety Concerns: Feels Safe At This Time Smoking Status: Current every day smoker Hx Alcohol Use: No Hx Substance Use: Yes Review of Systems See HPI for pertinent positives & negatives. and A total of 10 systems reviewed and were otherwise negative Physical Exam Vital Signs Vital Signs - 24 hr 07/13/18 09:38 07/13/18 09:42 07/13/18 10:00 Temperature 37.2 C Temperature Source Oral Sepsis Recent Fever Within 48 Hours No Sepsis Action Taken by Nursing No Action Required Pulse Rate 74 77 Pulse Rate [Brachial] Pulse Rate from SpO2 Sensor Pulse Rhythm [Brachial] Pulse Strength [Brachial] Respiratory Rate 14 25 H Respiratory Effort / Characteristics Respiratory Depth Respiratory Pattern Blood Pressure 196/123 H 196/123 H Blood Pressure [Left Arm] Blood Pressure [Right Arm] Blood Pressure Mean 147 147 Blood Pressure Mean [Left Arm] Blood Pressure Mean [Right Arm] Blood Pressure Position Lying Blood Pressure Position [Left Arm] Blood Pressure Position [Right Arm] Pulse Oximetry 99 84 L Oxygen Delivery Method Room Air Room Air Oxygen Flow Rate 07/13/18 10:12 07/13/18 10:30 07/13/18 11:00 Temperature Temperature Source Sepsis Recent Fever Within 48 Hours Sepsis Action Taken by Nursing Pulse Rate Pulse Rate [Brachial] Pulse Rate from SpO2 Sensor 77 77 78 Pulse Rhythm [Brachial] Pulse Strength [Brachial] Respiratory Rate Respiratory Effort / Characteristics Respiratory Depth Respiratory Pattern Blood Pressure 171/102 H Blood Pressure [Left Arm] Blood Pressure [Right Arm] Blood Pressure Mean 125 Blood Pressure Mean [Left Arm] Blood Pressure Mean [Right Arm] Blood Pressure Position Blood Pressure Position [Left Arm] Blood Pressure Position [Right Arm] Pulse Oximetry 98 96 98 Oxygen Delivery Method Nasal Cannula Nasal Cannula Oxygen Flow Rate 2 07/13/18 11:05 07/13/18 11:30 07/13/18 12:00 Temperature Temperature Source Sepsis Recent Fever Within 48 Hours Sepsis Action Taken by Nursing Pulse Rate Pulse Rate [Brachial] Pulse Rate from SpO2 Sensor 83 84 71 Pulse Rhythm [Brachial] Pulse Strength [Brachial] Respiratory Rate 20 Respiratory Effort / Characteristics Respiratory Depth Respiratory Pattern Blood Pressure 171/102 H 176/107 H Blood Pressure [Left Arm] Blood Pressure [Right Arm] Blood Pressure Mean 125 130 Blood Pressure Mean [Left Arm] Blood Pressure Mean [Right Arm] Blood Pressure Position Blood Pressure Position [Left Arm] Blood Pressure Position [Right Arm] Pulse Oximetry 98 96 96 Oxygen Delivery Method Nasal Cannula Oxygen Flow Rate 2 07/13/18 12:01 07/13/18 12:17 07/13/18 12:30 Temperature Temperature Source Sepsis Recent Fever Within 48 Hours Sepsis Action Taken by Nursing Pulse Rate Pulse Rate [Brachial] Pulse Rate from SpO2 Sensor 71 71 Pulse Rhythm [Brachial] Pulse Strength [Brachial] Respiratory Rate 17 20 Respiratory Effort / Characteristics Spontaneous SOB on Exertion Respiratory Depth Shallow Respiratory Pattern Tachypnea Blood Pressure 193/113 H Blood Pressure [Left Arm] Blood Pressure [Right Arm] Blood Pressure Mean 139 Blood Pressure Mean [Left Arm] Blood Pressure Mean [Right Arm] Blood Pressure Position Blood Pressure Position [Left Arm] Blood Pressure Position [Right Arm] Pulse Oximetry 97 97 Oxygen Delivery Method Nasal Cannula Nasal Cannula Nasal Cannula Oxygen Flow Rate 2 2 2 07/13/18 12:31 07/13/18 12:32 07/13/18 13:00 Temperature Temperature Source Sepsis Recent Fever Within 48 Hours Sepsis Action Taken by Nursing Pulse Rate 71 Pulse Rate [Brachial] Pulse Rate from SpO2 Sensor 77 75 73 Pulse Rhythm [Brachial] Pulse Strength [Brachial] Respiratory Rate 18 24 Respiratory Effort / Characteristics Respiratory Depth Respiratory Pattern Blood Pressure 195/105 H Blood Pressure [Left Arm] Blood Pressure [Right Arm] Blood Pressure Mean 135 Blood Pressure Mean [Left Arm] Blood Pressure Mean [Right Arm] Blood Pressure Position Blood Pressure Position [Left Arm] Blood Pressure Position [Right Arm] Pulse Oximetry 97 92 93 Oxygen Delivery Method Nasal Cannula Oxygen Flow Rate 2 07/13/18 13:38 07/13/18 14:01 07/13/18 15:06 Temperature 36.6 C 36.5 C Temperature Source Oral Oral Sepsis Recent Fever Within 48 Hours Sepsis Action Taken by Nursing Pulse Rate Pulse Rate [Brachial] 69 75 Pulse Rate from SpO2 Sensor 74 Pulse Rhythm [Brachial] Regular Pulse Strength [Brachial] Normal Respiratory Rate 18 21 Respiratory Effort / Characteristics Non-Labored Spontaneous Respiratory Depth Normal Respiratory Pattern Regular Blood Pressure 188/100 H Blood Pressure [Left Arm] 195/91 H Blood Pressure [Right Arm] 184/115 H 164/93 H Blood Pressure Mean 129 Blood Pressure Mean [Left Arm] 125 Blood Pressure Mean [Right Arm] 138 116 Blood Pressure Position Blood Pressure Position [Left Arm] Lying Blood Pressure Position [Right Arm] Lying Lying Pulse Oximetry 99 100 98 Oxygen Delivery Method Nasal Cannula Nasal Cannula Oxygen Flow Rate 2 1.5 07/13/18 15:44 07/13/18 16:14 Temperature Temperature Source Sepsis Recent Fever Within 48 Hours Sepsis Action Taken by Nursing Pulse Rate Pulse Rate [Brachial] 84 Pulse Rate from SpO2 Sensor Pulse Rhythm [Brachial] Pulse Strength [Brachial] Respiratory Rate 18 Respiratory Effort / Characteristics Non-Labored Spontaneous Spontaneous Respiratory Depth Respiratory Pattern Blood Pressure Blood Pressure [Left Arm] Blood Pressure [Right Arm] Blood Pressure Mean Blood Pressure Mean [Left Arm] Blood Pressure Mean [Right Arm] Blood Pressure Position Blood Pressure Position [Left Arm] Blood Pressure Position [Right Arm] Pulse Oximetry 98 Oxygen Delivery Method Nasal Cannula Nasal Cannula Oxygen Flow Rate 2 2 GENERAL: Lying on bed groaning. HENT: Normocephalic, atraumatic. EYES: Normal conjunctiva. Sclera non-icteric. NECK: Supple. No nuchal rigidity. RESPIRATORY: Clear to auscultation. Slight wheezes. Normal respiratory effort. CARDIAC: Normal rate. Normal rhythm. Extremities warm and well perfused. GI: Soft, non-distended. Severe left lower quadrant pain with guarding RECTAL: Deferred. MUSCULOSKELETAL: Atraumatic. Chest examination reveals no tenderness. LOWER EXTREMITIES: Calves are equal size bilaterally and non-tender. No edema NEURO: Normal sensorium. No sensory or motor deficits noted. No facial droop. SKIN: Warm and dry. No rash or jaundice noted. Course 0948: Past medical records reviewed. The patient was evaluated in room C07, and a complete history and physical examination were performed. 1131: I reviewed the patient's case with Virginie CAMPBELL - Hospitalist Jose camara. She will evaluate the patient for further management. Consultations Consultation #1: 1131: I reviewed the patient's case with Virginie CAMPBELL - [facility]. She will evaluate the patient for further management. Time: 11:31 Administered Medications Albuterol (Duoneb) 3 ml NEB QIDR RADHA Stop: 08/12/18 15:59 Last Admin: 07/13/18 15:38 Dose: 3 ml Documented by: [id number] Bupropion HCl (Wellbutrin-Sr) 200 mg PO BID17 RADHA Stop: 08/12/18 16:59 Last Admin: 07/13/18 16:31 Dose: 200 mg Documented by: [id number] Enoxaparin Sodium (Lovenox) 30 mg SQ DAILY [facility] Stop: 08/12/18 13:57 Last Admin: 07/13/18 15:25 Dose: 30 mg Documented by: [id number] Gabapentin (Neurontin) 300 mg PO TID [facility] Stop: 08/12/18 13:59 Last Admin: 07/13/18 15:25 Dose: 300 mg Documented by: [id number] Sodium Chloride (Nss 1000ml) 1,000 mls @ 80 mls/hr IV .[id number] [facility] Stop: 08/12/18 12:44 Last Admin: 07/13/18 14:16 Dose: 80 mls/hr Documented by: [id number] Ampicillin Sodium/Sulbactam Sodium 3,000 mg/ Sodium Chloride 108 mls @ 200 mls/hr IV Q6H [facility]; Protocol Stop: 07/23/18 15:59 Last Admin: 07/13/18 16:32 Dose: 200 mls/hr Documented by: [id number] Lisinopril (Zestril) 20 mg PO QAM [facility] Stop: 08/12/18 13:46 Last Admin: 07/13/18 15:25 Dose: 20 mg Documented by: [id number] Tramadol HCl (Ultram) 50 mg PO Q6H PRN PRN Reason: Pain Stop: 08/12/18 13:57 Last Admin: 07/13/18 15:15 Dose: 50 mg Documented by: [id number] Discontinued Medications Ciprofloxacin (Cipro) 500 mg PO NOW STA Stop: 07/13/18 11:29 Last Admin: 07/13/18 11:43 Dose: 500 mg Documented by: [id number] Dicyclomine HCl (Bentyl) 20 mg IM NOW ONE Stop: 07/13/18 09:52 Last Admin: 07/13/18 10:22 Dose: 20 mg Documented by: [id number] Hydralazine HCl (Hydralazine Hcl) 10 mg IV NOW STA Stop: 07/13/18 13:48 Last Admin: 07/13/18 14:15 Dose: 10 mg Documented by: [id number] Hydromorphone HCl (Dilaudid) 0.5 mg IV NOW STA Stop: 07/13/18 09:47 Last Admin: 07/13/18 10:22 Dose: 0.5 mg Documented by: [id number] Sodium Chloride (Nss 1000ml) 1,000 mls @ 999 mls/hr IV .Q1H1M [facility] Stop: 07/13/18 11:00 Last Infusion: 07/13/18 11:45 Dose: 0 mls/hr Documented by: [id number] Admin: 07/13/18 10:22 Dose: 999 mls/hr Documented by: [id number] Acetaminophen (Ofirmev) 1,000 mg in 100 mls @ 400 mls/hr IV NOW STA Stop: 07/13/18 11:42 Last Infusion: 07/13/18 11:59 Dose: 0 mls/hr Documented by: [id number] Admin: 07/13/18 11:44 Dose: 400 mls/hr Documented by: [id number] Ciprofloxacin (Cipro) 400 mg in 200 mls @ 100 mls/hr IV Q12H [facility] Stop: 07/23/18 13:57 Last Admin: 07/13/18 14:25 Dose: Not Given Documented by: [id number] Metronidazole (Flagyl) 500 mg in 100 mls @ 100 mls/hr IV Q8H [facility] Stop: 07/23/18 13:57 Last Admin: 07/13/18 14:25 Dose: Not Given Documented by: [id number] Ioversol (Optiray 320 100ml) 92 ml IV ONCE PRN PRN Reason: Interaction Checking Stop: 07/17/18 10:49 Last Admin: 07/13/18 10:51 Dose: 92 ml Documented by: [id number] Ketorolac Tromethamine (Toradol) 15 mg IV NOW STA Stop: 07/13/18 09:47 Last Admin: 07/13/18 10:22 Dose: 15 mg Documented by: [id number] Ketorolac Tromethamine (Toradol) 30 mg IV Q6H PRN PRN Reason: Pain Stop: 07/18/18 14:17 Last Admin: 07/13/18 14:29 Dose: 30 mg Documented by: [id number] Metronidazole (Flagyl) 500 mg PO NOW STA Stop: 07/13/18 11:29 Last Admin: 07/13/18 11:43 Dose: 500 mg Documented by: [id number] Medical Decision Making Differential Diagnosis Differential diagnosis: Etiologies such as appendicitis, diverticulitis, PUD, biliary pathology, UTI, pancreatitis, obstruction, mesenteric ischemia, aortic pathology, infections, inflammatory bowel disease, renal colic, as well as others were entertained. Medical Records Attestation: I reviewed the patient's medical records. Home Medications Current Medication List: was personally reviewed by me Laboratory Data Attestation: I reviewed the patient's lab results. Result diagrams: 07/13/18 10:10 07/13/18 10:10 Lab Results 07/13/18 07/13/18 Range/Units 10:10 10:10 WBC 12.45 H (4.8-10.8) K/uL RBC 5.19 (4.2-5.4) M/uL Hgb 16.8 H (12.0-16.0) g/dL Hct 48.9 H (37-47) % MCV 94.2 (80-100) fL MCH 32.4 (25-34) pg MCHC 34.4 (32-36) g/dL RDW Std Deviation 46.5 H (36.4-46.3) fL RDW Coeff of Bakari 13.5 (11.5-14.5) % Plt Count 366 (130-400) K/uL MPV 9.0 (7.4-10.4) fL Immature Gran % (Auto) 0.4 % Neut % (Auto) 78.7 % Lymph % (Auto) 16.1 % Piatt % (Auto) 4.1 % Eos % (Auto) 0.6 % Baso % (Auto) 0.1 % Immature Gran # (Auto) 0.05 H (0.00-0.02) K/uL Neut # (Auto) 9.80 H (1.4-6.5) K/uL Lymph # (Auto) 2.01 (1.2-3.4) K/uL Piatt # (Auto) 0.51 (0.11-0.59) K/uL Eos # (Auto) 0.07 (0-0.5) K/uL Baso # (Auto) 0.01 (0-0.2) K/uL Sodium 137 (136-145) mmol/L Potassium 3.9 (3.5-5.1) mmol/L Chloride 103 (98-107) mmol/L Carbon Dioxide 27 (21-32) mmol/L Anion Gap 7.0 (3-11) BUN 13 (7-18) mg/dl Creatinine 0.83 (0.6-1.2) mg/dl Est Cr Clr Drug Dosing 60.4 ml/min Est GFR ( Amer) 89.5 Est GFR (Non-Af Amer) 77.2 BUN/Creatinine Ratio 15.1 (10-20) Glucose 148 H (70-99) mg/dl Calcium 9.8 (8.5-10.1) mg/dl Total Bilirubin 0.5 (0.2-1) mg/dl AST 16 (15-37) U/L ALT 34 (12-78) U/L Alkaline Phosphatase 118 H (45-117) U/L Total Protein 7.9 (6.4-8.2) gm/dl Albumin 4.1 (3.4-5.0) gm/dl Globulin 3.8 (2.5-4.0) gm/dl Albumin/Globulin Ratio 1.1 (0.9-2) Lipase 58 L (73-393) U/L Imaging Data Radiologist's Impression: Radiology results as stated below per my review and the radiologist's interpretation: XR chest 1V portable CLINICAL HISTORY: abdominal pain pain COMPARISON STUDY: 09/25/2017 FINDINGS: Subtle interstitial prominence. No well-defined focal infiltrate. No significant cardiac enlargement. Diaphragms are smooth. Small stable calcified granuloma right base. IMPRESSION: Slight interstitial prominence with the chest otherwise negative. The above report was generated using voice recognition software. It may contain grammatical, syntax or spelling errors. Electronically signed by: Kyrie Rojas M.D. 07/13/2018 11:06 AM Dictated: 07/13/18 1105 Transcribed: 07/13/[address] SCAN OF THE ABDOMEN AND PELVIS WITH IV CONTRAST CLINICAL HISTORY: Left lower quadrant abdominal pain. COMPARISON STUDY: Multiple prior abdominal CT scans, most recently dated 12/31/2017. TECHNIQUE: Following the IV administration of 92 cc of Optiray 320, CT scan of the abdomen and pelvis is performed from the lung bases to the proximal femora. Images are reviewed in the axial, sagittal, and coronal planes. IV contrast was administered without complication. A dose lowering technique was utilized adhering to the principles of ALARA. CT DOSE: 398.16 mGy.cm FINDINGS: Lung bases: The heart is normal in size and without pericardial effusion. There is no airspace consolidation or pleural effusion. Bibasilar scarring/atelectasis is noted. A large calcified granuloma seen in the right lower lobe. Liver: The contrast-enhanced liver is normal in top normal in size. The liver demonstrates diffusely diminished attenuation consistent with hepatic steatosis. Fatty sparing is seen adjacent to gallbladder fossa. There is no intrahepatic biliary ductal dilatation. The hepatic veins and portal veins are patent. Gallbladder: Unremarkable. Spleen: Normal in size and attenuation. Pancreas: Unremarkable. Adrenal glands: Unremarkable. Kidneys: The contrast enhanced kidneys are normal in size and without hydronephrosis. The kidneys enhance symmetrically. A retroaortic left renal vein is incidentally noted. Abdominal vasculature: The abdominal aorta is normal in course and caliber noting moderate atherosclerotic calcification. Bowel: The colon is largely decompressed. There is mild wall thickening suggested throughout the colon, with mild mucosal hyperemia and an air-fluid level seen in the cecum. The appearance suggests a mild nonspecific colitis. There is mild colonic diverticulosis without CT evidence of acute diverticulitis . No bowel obstruction is identified. The appendix is well-visualized and normal. Peritoneum: There is no intraperitoneal free air or abdominal ascites. There is a small fat-containing umbilical hernia. Lymphadenopathy: None. Pelvic viscera: The bladder is normal as imaged. 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 The uterus is otherwise normal in appearance. No adnexal lesion is seen. Foci of subcutaneous gas within the right gluteal region are likely related to subcutaneous injections. Skeletal structures: The skeletal structures are osteopenic. Moderate lumbosacral spondylosis is observed. No lytic or blastic lesions are seen. IMPRESSION: 1. Findings suggest a mild nonspecific colitis. Clinical correlation will be required. 2. Hepatomegaly and hepatic steatosis. 3. Additional findings as above. Electronically signed by: Narendra Guerrero M.D. 07/13/2018 11:14 AM Dictated: 07/13/18 1057 Transcribed: 07/13/18 1057 Blood Pressure Blood Pressure Findings: Elevated blood pressure Blood Pressure Disposition: further management by hospitalist JEFF Narrative Patient is a 58-year-old female with a past history of radiculitis, GERD, hypertension, C. difficile, bipolar/anxiety presenting today with complaint of left upper quadrant pain. Denies any nausea vomiting or diarrhea. Seen here last night pain began now 2 days ago. Chronic pain medicine at home and given pain medicine last night but severe pain this morning. Is currently on Flagyl a nd started ciprofloxacin last night. Laboratory studies from last night reviewed and repeated along with a CT scan added today for further definition of her left lower quadrant pain. Do not believe this is cardiac patient does have some slight wheeze and a chest x-ray was performed. Does have a slight leukocytosis today. Again no evidence of significant electrolyte abnormality, kidney dysfunction, liver dysfunction, or pancreatitis on laboratory studies. CT findings suggest a nonspecific colitis without evidence of acute decubitus cellulitis or obstruction. Appendix is normal. Chest x-ray is unremarkable. Patient still states she is in fairly severe pain and difficulty going home. G iven doses of Flagyl and Cipro for possible infectious component. Again do not believe this is C. difficile at this time. Discussed with the hospitalist for admission given her severe pain from her colitis. Impression & Plan Colitis, Abdominal pain Discharge Plan Visit Data *Final* Discharge Date/Time: 07/13/18 13:42 Chief Complaint: Abdominal Pain ED Provider: Karthik Cote Discharge Problem: Colitis, Abdominal pain Patient Disposition: Admitted As Inpatient Discharge Instructions Interventions: ED Discharge Assessment Last Done: 07/13/18 13:42 The franco's documentation has been prepared under my direction and personally reviewed by me in its entirety. I confirm that the note above accurately reflects all work, treatment, procedures, and medical decision making performed by me.
[2018-07-13] MEDS ORDERED: HydrALAZINE HCL 20 MG/ML VIAL IV STA (13:47)
[2018-07-13] MEDS ORDERED: CIPROFLOXACIN 400 MG/200 ML BAG IV SCH (13:58)
[2018-07-13] MEDS ORDERED: ACETAMINOPHEN 325 MG TAB PO PRN (13:58)
[2018-07-13] MEDS ORDERED: metroNIDAZOLE 500 MG/100 ML BAG IV SCH (13:58)
[2018-07-13] MEDS ORDERED: HydrALAZINE HCL 20 MG/ML VIAL IV PRN (14:03)
--- NOTE | 2018-07-13 14:08 | History & Physical Report ---
Date of Service July 13, 2018 Assessment & Plan (1) Acute colitis: -Admit to [facility] -Patient presenting from home with reports of persistent left lower quadrant abdominal pain, CT ABD/pelvis in the ED demonstrates a mild nonspecific colitis -Patient with history of recurrent diverticulitis and C. difficile colitis in the past, however patient denies any current diarrhea -Recently started on Cipro and Flagyl as an outpatient (patient is only had a few doses of Flagyl and 1 dose of Cipro), will continue both for now -Labs unremarkable -Clear liquid diet, advance as tolerated -Supportive care with IVF, PRN pain medications, antiemetics (2) Hypertension: -Patient currently hypertensive, likely multifactorial secondary to pain and self stopping lisinopril -will give 1 dose of IV hydralazine -Pain control -Resume previous home dose of lisinopril (3) COPD, moderate: -Patient noted to have wheezing and rhonchi on exam today -Start scheduled nebs -Patient had episode of hypoxia in the ED after administration of IV Dilaudid, likely secondary to hypoventilation -continue to monitor (4) Anxiety: (5) Bipolar disorder: -Continue home meds (6) GERD (gastroesophageal reflux disease): -Continue H2 robyn (7) Tobacco abuse: -Patient counseled regarding tobacco cessation (8) Marijuana use: --Patient counseled regarding marijuana cessation and that it could be contributing to her abdominal pain (9) DVT prophylaxis: -SQ Lovenox History of Present Illness Chief Complaint: Abdominal pain Primary Care Provider: Andre Mancera 58-year-old female who presents to the ED with left lower quadrant abdominal pain. Patient reports history of recurrent diverticulitis and reports her pain feels similar to her flareups in the past. Patient contacted her PCP yesterday who prescribed Flagyl. Patient was also evaluated in the ED yesterday. She was given a prescription for Cipro to take with the Flagyl. Patient reports no improvement in her symptoms since returning home. She reports severe, stabbing, persistent left lower quadrant abdominal pain. Pain is made worse with any type of movement. She denies nausea, vomiting, diarrhea. Reports normal bowel movement this morning. No fevers or chills. She denies chest pain and shortness of breath. Reports she had noted some increased wheezing today (smokes 1 pack of cigarettes per day and has some mild wheezing at baseline she reports). No lightheadedness, dizziness, diaphoresis, syncopal events. She denies any urinary symptoms. In the ED today, CT ABD/pelvis is showing a mild nonspecific colitis. Labs are unremarkable. Patient is hypertensive but otherw ise vitals are stable. Reports she only takes her lisinopril when she is feeling anxious. In the ED, she was given IVF, p.o. Flagyl, IV Toradol, IV Dilaudid, IM dicyclomine, p.o. Cipro, IV Tylenol. Patient became hypoxic at 84% after administration of IV Dilaudid, currently saturating well on 2 L of oxygen. Allergies Allergy/AdvReac Type Severity Reaction Status Date / Time lorazepam Allergy Mild UNK Verified 07/13/18 11:02 bee venom protein (honey bee) Allergy Unknown "LUNGS Unverified 07/13/18 11:02 CLOSE UP" capsaicin Allergy Unknown Verified 07/13/18 11:02 diclofenac Allergy Unknown Verified 07/13/18 11:02 Diclopak Allergy Unknown Verified 06/24/17 10:37 risperidone Allergy Unknown UNKNOWN Verified 07/13/18 11:02 Home Medications Home Medications Medication Instructions Recorded Confirmed Type Bifidobacterium infantis [Align] 4 mg PO DAILY 12/31/17 07/13/18 History albuterol sulfate 2.5 mg INHALATION QID PRN 12/31/17 07/13/18 History bupropion HCl [Wellbutrin SR] 200 mg PO BID 12/31/17 07/13/18 History calcium carbonate-vitamin D3 1 tab PO QAM 12/31/17 07/13/18 History [Calcium 500 + D (D3)] cyanocobalamin (vitamin B-12) 500 mcg PO QAM 12/31/17 07/13/18 History [Vitamin B-12] cyclobenzaprine 10 mg PO HS PRN 12/31/17 07/13/18 History dicyclomine 20 mg PO Q6H PRN 12/31/17 07/13/18 History ferrous sulfate 325 mg PO QAM 12/31/17 07/13/18 History fluticasone propionate [Flonase 2 spray INTRANASAL BID PRN 12/31/17 07/13/18 History Allergy Relief] gabapentin [Neurontin] 300 mg PO TID 12/31/17 07/13/18 History ipratropium-albuterol [Combivent 1 puff INHALATION QID PRN 12/31/17 07/13/18 Hi story Respimat] omega 5-czx-lry-fish oil [Fish Oil] 1,000 mg PO QAM 12/31/17 07/13/18 History oxycodone-acetaminophen [Percocet] 1 tab PO 5XD 12/31/17 07/13/18 History ranitidine HCl [Zantac] 150 mg PO BID 12/31/17 07/13/18 History vitamin E 800 unit PO DAILY 12/31/17 07/13/18 History ciprofloxacin HCl 500 mg PO Q12H 7 Days #14 tab 07/12/18 07/13/18 Rx alprazolam 0.5 mg PO TID PRN 07/13/18 07/13/18 History lisinopril 20 mg PO QAM 07/13/18 07/13/18 History metronidazole [Flagyl] 500 mg PO TID 07/13/18 07/13/18 History trazodone 50 mg PO HS 07/13/18 07/13/18 History wheat dextrin-calcium carb 1 tab PO DAILY 07/13/18 07/13/18 History Past Med/Surg History Medical History Marijuana use (Chronic) Tobacco abuse (Chronic) C. difficile diarrhea (Resolved) Diverticulitis (Resolved) Fibromyalgia (Chronic) Bipolar disorder (Chronic) Anxiety (Chronic) Hypertension (Chronic) COPD, moderate (Chronic) GERD (gastroesophageal reflux disease) (Chronic) Recurrent Clostridium difficile diarrhea (Resolved) Colitis (Inactive) Surgical History Previous section (Resolved) History of tubal ligation (Resolved) Social History Preferred Language: [place]an Communication Ability: Effective Field Sales Manager Required: No Beliefs That Will Affect Care: None Current Living Situation: Alone Other Information That Helps Us Care for You: No Feels Safe at Home: Yes Safety Concerns: Feels Safe At This Time Smoking Status: Current every day smoker Hx Alcohol Use: No Hx Substance Use: Yes Review of Systems ROS per HPI, all other systems reviewed and negative Physical Exam Vital Signs (Past 24 Hours): Last Vital Signs Temp 37.2 C 07/13/18 09:42 Pulse 71 07/13/18 13:00 Resp 24 07/13/18 13:00 BP 188/100 H 07/13/18 13:38 Pulse Ox 99 07/13/18 13:38 Constitutional: WD/WN, vitals as above Eyes: PERRL, conjunctivae normal, anicteric sclerae ENMT: external ear and nose normal, oropharynx normal Respiratory: normal respiratory effort; no respiratory distress Auscultation: + rhonchi (Bilateral) and + wheezes (Bilateral, expiratory) Cardiovascular: Rate/Rhythm: regular rate and regular rhythm Vessels: normal peripheral pulses Extremities: no edema Gastrointestinal (Abdomen): Inspection/Auscultation: + abdomen distended and normal bowel sounds Percussion/Palpation: + abdomen tender (LLQ) and abdomen soft; no hepatosplenomegaly Musculoskeletal: no cyanosis or clubbing, extremities motor strength 5/5 Skin: no rashes, warm and dry Neurologic: PERRL, EOMI, accommodation nl, no face palsy, no dysarthria Psychiatric: A+Ox3, euthymic affect Results & Data Laboratory Results Laboratory Last Values WBC 12.45 K/uL (4.8-10.8) H 07/13/18 10:10 RBC 5.19 M/uL (4.2-5.4) 07/13/18 10:10 Hgb 16.8 g/dL (12.0-16.0) H 07/13/18 10:10 Hct 48.9 % (37-47) H 07/13/18 10:10 MCV 94.2 fL (80-100) 07/13/18 10:10 MCH 32.4 pg (25-34) 07/13/18 10:10 MCHC 34.4 g/dL (32-36) 07/13/18 10:10 RDW Std Deviation 46.5 fL (36.4-46.3) H 07/13/18 10:10 RDW Coeff of Bakari 13.5 % (11.5-14.5) 07/13/18 10:10 Plt Count 366 K/uL (130-400) 07/13/18 10:10 MPV 9.0 fL (7.4-10.4) 07/13/18 10:10 Immature Gran % (Auto) 0.4 % 07/13/18 10:10 Neut % (Auto) 78.7 % 07/13/18 10:10 Lymph % (Auto) 16.1 % 07/13/18 10:10 Esmeralda % (Auto) 4.1 % 07/13/18 10:10 Eos % (Auto) 0.6 % 07/13/18 10:10 Baso % (Auto) 0.1 % 07/13/18 10:10 Immature Gran # (Auto) 0.05 K/uL (0.00-0.02) H 07/13/18 10:10 Neut # (Auto) 9.80 K/uL (1.4-6.5) H 07/13/18 10:10 Lymph # (Auto) 2.01 K/uL (1.2-3.4) 07/13/18 10:10 Esmeralda # (Auto) 0.51 K/uL (0.11-0.59) 07/13/18 10:10 Eos # (Auto) 0.07 K/uL (0-0.5) 07/13/18 10:10 Baso # (Auto) 0.01 K/uL (0-0.2) 07/13/18 10:10 Sodium 137 mmol/L (136-145) 07/13/18 10:10 Potassium 3.9 mmol/L (3.5-5.1) 07/13/18 10:10 Chloride 103 mmol/L (98-107) 07/13/18 10:10 Carbon Dioxide 27 mmol/L (21-32) 07/13/18 10:10 Anion Gap 7.0 (3-11) 07/13/18 10:10 BUN 13 mg/dl (7-18) 07/13/18 10:10 Creatinine 0.83 mg/dl (0.6-1.2) 07/13/18 10:10 Est Cr Clr Drug Dosing 60.4 ml/min 07/13/18 10:10 Est GFR ( Amer) 89.5 07/13/18 10:10 Est GFR (Non-Af Amer) 77.2 07/13/18 10:10 BUN/Creatinine Ratio 15.1 (10-20) 07/13/18 10:10 Glucose 148 mg/dl (70-99) H 07/13/18 10:10 Calcium 9.8 mg/dl (8.5-10.1) 07/13/18 10:10 Total Bilirubin 0.5 mg/dl (0.2-1) 07/13/18 10:10 AST 16 U/L (15-37) 07/13/18 10:10 ALT 34 U/L (12-78) 07/13/18 10:10 Alkaline Phosphatase 118 U/L (45-117) H 07/13/18 10:10 Total Protein 7.9 gm/dl (6.4-8.2) 07/13/18 10:10 Albumin 4.1 gm/dl (3.4-5.0) 07/13/18 10:10 Globulin 3.8 gm/dl (2.5-4.0) 07/13/18 10:10 Albumin/Globulin Ratio 1.1 (0.9-2) 07/13/18 10:10 Lipase 58 U/L (73-393) L 07/13/18 10:[address] ABD/PELVIS IMPRESSION: 1. Findings suggest a mild nonspecific colitis. Clinical correlation will be required. 2. Hepatomegaly and hepatic steatosis. 3. Additional findings as above. CXR IMPRESSION: Slight interstitial prominence with the chest otherwise negative. Code Status & VTE Plan VTE Prophylaxis Plan VTE Prophylaxis will be ordered: Yes Supervising Physician Co-Signing Physician Notes Attending addendum He is a 58-year-old female has been complaining of abdominal pain for the last few days and noted to have nonspecific colitis on CT scan of the abdomen and pelvis Still complains of abdominal pain but does not have any distention, nausea and/or vomiting Denies any fever and/or chills Diarrhea has been continuing On examination Distress with pain Otherwise hemodynamically stable with high systolic blood pressure Chest-clear to auscultate bilaterally Heart-S1-S2, regular, no murmur appreciated Abdomen-not distended, soft, tender in lower quadrants and more on the left, bowel sounds exaggerated Extremities-no edema PRIVACY OFFICER-alert, awake and oriented x3 Admission labs and imaging studies reviewed Has nonspecific colitis involving whole of the colon Has been on Cipro and Flagyl for now and will check stool for C. difficile colitis and culture To involve GI if the condition does not get any better Agree with assessment and plan as outlined by Virginie Bradshaw
[2018-07-13] MEDS: SODIUM CHLORIDE 0.9% 1000ML 1,000 ML IV SCH (14:16)
[2018-07-13] MEDS ORDERED: KETOROLAC 30 MG/ML VIAL IV PRN (14:18)
[2018-07-13] MEDS: TRAMADOL HCL 50 MG TABLET PO PRN (15:15)
[2018-07-13] MEDS: LISINOPRIL 20 MG TAB PO SCH (15:25)
[2018-07-13] MEDS: ENOXAPARIN INJ 30 MG/0.3 ML SYR SQ SCH (15:25)
[2018-07-13] MEDS: GABAPENTIN 300 MG CAP PO SCH ×2 (15:25→21:09)
[2018-07-13] MEDS: ALBUT/IPRATROP 3MG/0.5MG NEB 3 ML VIAL NEB SCH ×2 (15:38→19:14)
[2018-07-13] MEDS: BuPROPion SR 100 MG TABCR PO SCH (16:31)
[2018-07-13] MEDS: AMPICILLIN/SULBACTAM SOD 3,000 MG in 0.9 % SODIUM CHLORIDE 100 ML IV SCH ×2 (16:32→21:39)
[2018-07-13] MEDS: HYDROmorphone INJ 0.5 MG/0.5 ML SYR IV PRN ×2 (16:36→22:30)
[2018-07-13] MEDS: TRAZODONE HCL 50 MG TAB PO SCH (21:09)
[2018-07-14] MEDS: TRAMADOL HCL 50 MG TABLET PO PRN ×2 (00:04→07:18)
[2018-07-14] MEDS: SODIUM CHLORIDE 0.9% 1000ML 1,000 ML IV SCH ×2 (02:46→15:39)
[2018-07-14] MEDS: KETOROLAC TROMETHAMINE 15 MG/ML VIAL IV PRN ×2 (03:51→13:21)
[2018-07-14] MEDS: AMPICILLIN/SULBACTAM SOD 3,000 MG in 0.9 % SODIUM CHLORIDE 100 ML IV SCH ×4 (05:11→21:18)
[2018-07-14] MEDS: HYDROmorphone INJ 0.5 MG/0.5 ML SYR IV PRN ×3 (05:13→18:02)
[2018-07-14] MEDS: ALBUT/IPRATROP 3MG/0.5MG NEB 3 ML VIAL NEB SCH ×4 (06:51→18:58)
[2018-07-14 06:55] LABS: Basophils # (auto) 0.01 K/uL (0-0.2); Basophils % (auto) 0.1 %; Eosinophils # (auto) 0.07 K/uL (0-0.5); Eosinophils % (auto) 0.6 %; Hematocrit (blood only) 41.7 % (37-47); Hemoglobin 13.8 g/dL (12.0-16.0); Immature Granulocytes # (auto) 0.04 K/uL (0.00-0.02); Immature Granulocytes % (auto) 0.3 %; Lymphocytes # (auto) 1.87 K/uL (1.2-3.4); Lymphocytes % (auto) 15.3 %; Mean Corpuscular Hgb Conc 33.1 g/dL (32-36); Mean Corpuscular Volume 95.2 fL (80-100); Mean Platelet Volume 9.2 fL (7.4-10.4); Monocytes # (auto) 0.83 K/uL (0.11-0.59); Monocytes % (auto) 6.8 %; Neutrophils # (auto) 9.39 K/uL (1.4-6.5); Neutrophils % (auto) 76.9 %; Platelet Count 326 K/uL (130-400); RDW Coefficient of Variation 13.7 % (11.5-14.5); RDW Standard Deviation 47.2 fL (36.4-46.3); Red Blood Count 4.38 M/uL (4.2-5.4); White Blood Count 12.21 K/uL (4.8-10.8)
[2018-07-14 07:16] LABS: BUN Creatinine Ratio 13.7 (10-20); Calcium 8.5 mg/dl (8.5-10.1); Creatinine Clr Calc Pharmacy 73.7 ml/min; Est GFR (Non-African American) 95.7; Magnesium 1.9 mg/dl (1.8-2.4); Potassium 3.1 mmol/L (3.5-5.1)
[2018-07-14 07:47] LABS: Appearance Urine Clear (Clear); Bilirubin Urine Negative (Negative); Blood Urine Negative (Negative); Color Urine Yellow; Glucose Urine UA Negative (Negative); Ketones Urine Negative (Negative); Leukocyte Esterase Urine Negative (Negative); Nitrite Urine Negative (Negative); Protein Urine Negative (Negative); Specific Gravity Urine 1.015 (1.000-1.030); Urobilinogen Urine Negative (Negative); pH Urine 6.5 (4.5-7.5)
[2018-07-14] MEDS: CYANOCOBALAMIN 500 MCG TABLET (VITAMIN B-12) PO SCH (08:56)
[2018-07-14] MEDS: FERROUS SULFATE 325 MG TAB PO SCH (08:56)
[2018-07-14] MEDS: OMEGA-3 (PURIFIED FISH OIL) 1 GM CAP PO SCH (08:56)
[2018-07-14] MEDS: TOCOPHERYL, DL-ALPHA 400 UNITS CAP PO SCH (08:56)
[2018-07-14] MEDS: CALCIUM 600MG + VIT D 400 IU TAB PO SCH (08:56)
[2018-07-14] MEDS: BuPROPion SR 100 MG TABCR PO SCH ×2 (08:57→17:20)
[2018-07-14] MEDS: GABAPENTIN 300 MG CAP PO SCH ×3 (08:57→21:17)
[2018-07-14] MEDS: ENOXAPARIN INJ 30 MG/0.3 ML SYR SQ SCH (08:57)
[2018-07-14] MEDS ORDERED: [UNRECOGNIZED DRUG - OTHER] PO SCH (09:00)
[2018-07-14] MEDS ORDERED: NON-FORMULARY MEDICATION (Bifidobacterium Infantis [Align] 4 MG) PO SCH (09:00)
[2018-07-14] MEDS: LISINOPRIL 20 MG TAB PO SCH (09:42)
[2018-07-14] MEDS: MAGNESIUM HYDROXIDE SUSP 30 ML UDC PO PRN ×2 (11:23→21:22)
--- NOTE | 2018-07-14 12:45 | Hospitalist Progress Note ---
Date of Service July 14, 2018 Assessment & Plan (1) Acute colitis: -Admit to [facility] -Patient presenting from home with reports of persistent left lower quadrant abdominal pain, CT ABD/pelvis in the ED demonstrates a mild nonspecific colitis -Patient with history of recurrent diverticulitis and C. difficile colitis in the past, however patient denies any current diarrhea -Recently started on Cipro and Flagyl as an outpatient (patient is only had a few doses of Flagyl and 1 dose of Cipro), will continue both for now -Labs unremarkable -Clear liquid diet, advance as tolerated -Supportive care with IVF, PRN pain medications, antiemetics -Clinically better clinically -We will continue current antibiotic (2) Hypertension: -Patient currently hypertensive, likely multifactorial secondary to pain and self stopping lisinopril -will give 1 dose of IV hydralazine -Pain control -Resume previous home dose of lisinopril -Blood pressure remains upper side of normal, will continue current medications (3) COPD, moderate: -Patient noted to have wheezing and rhonchi on exam today -Start scheduled nebs -Patient had episode of hypoxia in the ED after administration of IV Dilaudid, likely secondary to hypoventilation -continue to monitor -No shortness of breath at rest and no spasm of the bronchioles on examination (4) Anxiety: (5) Bipolar disorder: -Continue home meds (6) GERD (gastroesophageal reflux disease): -Continue H2 robyn (7) Tobacco abuse: -Patient counseled regarding tobacco cessation (8) Marijuana use: --Patient counseled regarding marijuana cessation and that it could be contributing to her abdominal pain (9) DVT prophylaxis: -SQ Lovenox Bowel has not moved Will try milk of magnesia for dyspepsia every 6 hours Subjective 07/14 The patient was seen and examined the medical floor She complains to have more pain in the abdomen without any distention and/or nausea, vomiting Feels a little bloated today Physical Exam Vital Signs (Past 24 Hours): Last Vital Signs Temp 37.0 C 07/14/18 11:47 Pulse 76 07/14/18 11:47 Resp 18 07/14/18 11:47 BP 170/88 H 07/14/18 11:47 Pulse Ox 95 07/14/18 11:47 Physical Exam: No apparent distress at rest though complains of some pain in the abdomen Constitutional: WD/WN, vitals as above Eyes: PERRL, conjunctivae normal, anicteric sclerae ENMT: external ear and nose normal, oropharynx normal Respiratory: normal respiratory effort; no respiratory distress Auscultation: + rhonchi (Bilateral) and + wheezes (Bilateral, expiratory) Cardiovascular: Rate/Rhythm: regular rate and regular rhythm Vessels: normal peripheral pulses Extremities: no edema Gastrointestinal (Abdomen): Inspection/Auscultation: normal bowel sounds Percussion/Palpation: + abdomen tender (Mildly tender left lower quadrant without any guarding and/or rigidity) and abdomen soft; no hepatosplenomegaly Musculoskeletal: no cyanosis or clubbing, extremities motor strength 5/5 Skin: no rashes, warm and dry Neurologic: PERRL, EOMI, accommodation nl, no face palsy, no dysarthria Psychiatric: A+Ox3, euthymic affect Results & Data Laboratory Results Short CBC 07/14/18 Range/Units 05:13 WBC 12.21 H (4.8-10.8) K/uL Hgb 13.8 D (12.0-16.0) g/dL Hct 41.7 (37-47) % Plt Count 326 (130-400) K/uL BMP 07/14/18 05:13 Sodium 144 D Potassium 3.1 L D Chloride 112 H Carbon Dioxide 26 BUN 9 Creatinine 0.68 Glucose 104 H Calcium 8.5 Urine 07/14/18 Range/Units 07:20 Urine Color Yellow Urine Appearance Clear (Clear) Urine pH 6.5 (4.5-7.5) Ur Specific Bath 1.015 (1.000-1.030) Urine Protein Negative (Negative) Urine Glucose (UA) Negative (Negative) Medications Administered Current Inpatient Medications Acetaminophen (Tylenol) 650 mg PO Q4H PRN PRN Reason: pain/fever Stop: 08/12/18 13:57 Albuterol (Duoneb) 3 ml NEB QIDR RADHA Stop: 08/12/18 15:59 Last Admin: 07/14/18 11:12 Dose: 3 ml Documented by: Alprazolam (Xanax) 0.5 mg PO TID PRN PRN Reason: Anxiety Stop: 08/12/18 13:57 Bupropion HCl (Wellbutrin-Sr) 200 mg PO BID17 [facility] Stop: 08/12/18 16:59 Last Admin: 07/14/18 08:57 Dose: 200 mg Documented by: Cyanocobalamin (Vitamin B-12) 500 mcg PO QAM [facility] Stop: 08/13/18 08:59 Last Admin: 07/14/18 08:56 Dose: 500 mcg Documented by: Dicyclomine HCl (Bentyl) 20 mg PO Q6H PRN PRN Reason: Abdominal Pain Stop: 08/12/18 13:57 Enoxaparin Sodium (Lovenox) 30 mg SQ DAILY [facility] Stop: 08/12/18 13:57 Last Admin: 07/14/18 08:57 Dose: 30 mg Documented by: Ferrous Sulfate (Feosol) 325 mg PO QAM [facility] Stop: 08/13/18 08:59 Last Admin: 07/14/18 08:56 Dose: 325 mg Documented by: Fish Oil ([place]-3 (Purified Fish Oil)) 1 gm PO QAM [facility] Stop: 08/13/18 08:59 Last Admin: 07/14/18 08:56 Dose: 1 gm Documented by: Gabapentin (Neurontin) 300 mg PO TID [facility] Stop: 08/12/18 13:59 Last Admin: 07/14/18 08:57 Dose: 300 mg Documented by: Hydralazine HCl (Hydralazine Hcl) 10 mg IV Q6H PRN PRN Reason: Blood Pressure - High Stop: 08/12/18 14:14 Last Admin: 07/14/18 12:10 Dose: 10 mg Documented by: Hydromorphone HCl (Dilaudid) 0.5 mg IV Q6H PRN PRN Reason: Pain Stop: 07/27/18 15:19 Last Admin: 07/14/18 11:16 Dose: 0.5 mg Documented by: Sodium Chloride (Nss 1000ml) 1,000 mls @ 80 mls/hr IV .[id number] [facility] Stop: 08/12/18 12:44 Last Admin: 07/14/18 02:46 Dose: 80 mls/hr Documented by: Ampicillin Sodium/Sulbactam Sodium 3,000 mg/ Sodium Chloride 108 mls @ 200 mls/hr IV Q6H [facility]; Protocol Stop: 07/23/18 15:59 Last Infusion: 07/14/18 09:38 Dose: Infused Documented by: Ketorolac Tromethamine (Toradol) 15 mg IV Q6H PRN PRN Reason: Pain Stop: 07/18/18 14:38 Last Admin: 07/14/18 03:51 Dose: 15 mg Documented by: Lisinopril (Zestril) 20 mg PO QAM [facility] Stop: 08/12/18 13:46 Last Admin: 07/14/18 09:42 Dose: 20 mg Documented by: Magnesium Hydroxide (Milk Of Magnesia) 30 ml PO Q6H PRN PRN Reason: Dyspepsia Stop: 08/13/18 10:49 Last Admin: 07/14/18 11:23 Dose: 30 ml Documented by: Multivitamins/Minerals (Caltrate Plus) 1 tab PO QAM [facility] Stop: 08/13/18 08:59 Last Admin: 07/14/18 08:56 Dose: 1 tab Documented by: Oxycodone/Acetaminophen (Percocet 5mg/325mg) 1 tab PO 5XDQ4H PRN PRN Reason: Pain Stop: 07/27/18 13:57 Ranitidine HCl (Zantac) 150 mg PO BID [facility] Stop: 08/12/18 20:59 Last Admin: 07/14/18 08:56 Dose: 150 mg Documented by: Tramadol HCl (Ultram) 50 mg PO Q6H PRN PRN Reason: Pain Stop: 08/12/18 13:57 Last Admin: 07/14/18 07:18 Dose: 50 mg Documented by: Trazodone HCl (Desyrel) 50 mg PO HS [facility] Stop: 08/12/18 20:59 Last Admin: 07/13/18 21:09 Dose: 50 mg Documented by: Vitamin E (Vitamin E) 800 units PO DAILY [facility] Stop: 08/13/18 08:59 Last Admin: 07/14/18 08:56 Dose: 800 units Documented by:
[2018-07-14] MEDS ORDERED: LORazepam 0.5 MG/1 ML VIAL IV STA (13:30)
[2018-07-14] MEDS: ALPRAZolam 0.5 MG TABLET PO PRN (14:12)
--- NOTE | 2018-07-14 18:46 | Ultrasound Report ---
US duplex mesenteric CLINICAL HISTORY: Persistent abdominal pain. Evaluate for mesenteric stenosis. COMPARISON STUDY: CT of the abdomen and pelvis July 13, 2018. TECHNIQUE: Grayscale and color and duplex Doppler sonography of the abdominal aorta and major mesente erick vessels was performed. FINDINGS: Incidental note is made of increased hepatic echogenicity consistent with fatty infiltratio n. Peak systolic velocity within the abdominal aorta was 84 cm/s. Peak systolic velocity within the s uperior mesenteric artery was 140 cm/s. Peak systolic velocity within the celiac axis was 118 cm/s. P eak systolic velocity within the inferior mesenteric artery was 150 cm/s. IMPRESSION: No evidence for mesenteric vessel stenosis. Electronically signed by: Felipe Morales M.D. 07/14/2018 6:44 PM
[2018-07-14] MEDS: DICYCLOMINE HCL 20 MG TAB PO PRN (21:16)
[2018-07-14] MEDS: TRAZODONE HCL 50 MG TAB PO SCH (21:17)
[2018-07-15] MEDS: HYDROmorphone INJ 0.5 MG/0.5 ML SYR IV PRN ×4 (01:59→20:35)
[2018-07-15] MEDS: AMPICILLIN/SULBACTAM SOD 3,000 MG in 0.9 % SODIUM CHLORIDE 100 ML IV SCH ×2 (03:39→10:18)
[2018-07-15] MEDS: MAGNESIUM HYDROXIDE SUSP 30 ML UDC PO PRN (06:02)
[2018-07-15] MEDS: SODIUM CHLORIDE 0.9% 1000ML 1,000 ML IV SCH (06:02)
[2018-07-15] MEDS: KETOROLAC TROMETHAMINE 15 MG/ML VIAL IV PRN ×3 (06:05→17:21)
[2018-07-15 06:09] LABS: Basophils # (auto) 0.01 K/uL (0-0.2); Basophils % (auto) 0.1 %; Eosinophils # (auto) 0.13 K/uL (0-0.5); Eosinophils % (auto) 1.6 %; Hematocrit (blood only) 37.6 % (37-47); Hemoglobin 12.2 g/dL (12.0-16.0); Immature Granulocytes # (auto) 0.01 K/uL (0.00-0.02); Immature Granulocytes % (auto) 0.1 %; Lymphocytes # (auto) 2.51 K/uL (1.2-3.4); Lymphocytes % (auto) 30.2 %; Mean Corpuscular Hgb Conc 32.4 g/dL (32-36); Mean Corpuscular Volume 95.9 fL (80-100); Monocytes # (auto) 0.61 K/uL (0.11-0.59); Monocytes % (auto) 7.3 %; Neutrophils # (auto) 5.04 K/uL (1.4-6.5); Neutrophils % (auto) 60.7 %; Platelet Count 296 K/uL (130-400); RDW Standard Deviation 49.2 fL (36.4-46.3); Red Blood Count 3.92 M/uL (4.2-5.4); White Blood Count 8.31 K/uL (4.8-10.8)
[2018-07-15 06:42] LABS: BUN Creatinine Ratio 9.6 (10-20); Calcium 8.2 mg/dl (8.5-10.1); Creatinine Clr Calc Pharmacy 66.8 ml/min; Est GFR (African American) 101.1; Est GFR (Non-African American) 87.2; Potassium 3.5 mmol/L (3.5-5.1)
[2018-07-15] MEDS: ALBUT/IPRATROP 3MG/0.5MG NEB 3 ML VIAL NEB SCH ×2 (07:01→11:44)
[2018-07-15] MEDS: CALCIUM 600MG + VIT D 400 IU TAB PO SCH (08:00)
[2018-07-15] MEDS: LISINOPRIL 20 MG TAB PO SCH (08:00)
[2018-07-15] MEDS: GABAPENTIN 300 MG CAP PO SCH ×3 (08:00→20:36)
[2018-07-15] MEDS: FERROUS SULFATE 325 MG TAB PO SCH (08:00)
[2018-07-15] MEDS: TOCOPHERYL, DL-ALPHA 400 UNITS CAP PO SCH (08:00)
[2018-07-15] MEDS: CYANOCOBALAMIN 500 MCG TABLET (VITAMIN B-12) PO SCH (08:01)
[2018-07-15] MEDS: ENOXAPARIN INJ 30 MG/0.3 ML SYR SQ SCH (08:01)
[2018-07-15] MEDS: BuPROPion SR 100 MG TABCR PO SCH ×2 (08:01→17:17)
[2018-07-15] MEDS: OMEGA-3 (PURIFIED FISH OIL) 1 GM CAP PO SCH (08:01)
--- NOTE | 2018-07-15 12:39 | Hospitalist Progress Note ---
Date of Service July 15, 2018 Assessment & Plan (1) Acute colitis: -Admit to [facility] -Patient presenting from home with reports of persistent left lower quadrant abdominal pain, CT ABD/pelvis in the ED demonstrates a mild nonspecific colitis -Patient with history of recurrent diverticulitis and C. difficile colitis in the past, however patient denies any current diarrhea -Recently started on Cipro and Flagyl as an outpatient (patient is only had a few doses of Flagyl and 1 dose of Cipro), will continue both for now -Labs unremarkable -Clear liquid diet, advance as tolerated -Supportive care with IVF, PRN pain medications, antiemetics -Clinically better clinically -We will continue current antibiotic -No mesenteric circulatory abnormality on Doppler -She is clinically a lot better -Advised to ambulate around the hallway -Likely discharge tomorrow (2) Hypertension: -Patient currently hypertensive, likely multifactorial secondary to pain and self stopping lisinopril -will give 1 dose of IV hydralazine -Pain control -Resume previous home dose of lisinopril -Blood pressure remains upper side of normal, will continue current medications (3) COPD, moderate: -Patient noted to have wheezing and rhonchi on exam today -Start scheduled nebs -Patient had episode of hypoxia in the ED after administration of IV Dilaudid, likely secondary to hypoventilation -continue to monitor -No shortness of breath at rest and no spasm of the bronchioles on examination -No wheezing and/or shortness of breath (4) Anxiety: (5) Bipolar disorder: -Continue home meds (6) GERD (gastroesophageal reflux disease): -Continue H2 robyn (7) Tobacco abuse: -Patient counseled regarding tobacco cessation (8) Marijuana use: --Patient counseled regarding marijuana cessation and that it could be contributing to her abdominal pain (9) DVT prophylaxis: -SQ Lovenox Bowel has not moved Will try milk of magnesia for dyspepsia every 6 hours Has been having diarrhea we will DC milk of magnesia Stool for C. difficile colitis Subjective 07/14 The patient was seen and examined the medical floor She complains to have more pain in the abdomen without any distention and/or nausea, vomiting Feels a little bloated today 07/15 She has been feeling a lot better today Still has diarrhea though She has been out of baby Physical Exam Vital Signs (Past 24 Hours): Last Vital Signs Temp 36.7 C 07/15/18 07:24 Pulse 74 07/15/18 11:45 Resp 16 07/15/18 11:45 BP 166/92 H 07/15/18 07:24 Pulse Ox 96 07/15/18 11:45 Physical Exam: No apparent distress at rest Constitutional: WD/WN, vitals as above Eyes: PERRL, conjunctivae normal, anicteric sclerae ENMT: external ear and nose normal, oropharynx normal Respiratory: normal respiratory effort; no respiratory distress Auscultation: + rhonchi (Bilateral) and + wheezes (Bilateral, expiratory) Cardiovascular: Rate/Rhythm: regular rate and regular rhythm Vessels: normal peripheral pulses Extremities: no edema Gastrointestinal (Abdomen): Inspection/Auscultation: abdomen normal to inspection and normal bowel sounds Percussion/Palpation: + abdomen tender (Minimally tender left lower quadrant without any guarding and no rigidity) and abdomen soft; no hepatosplenomegaly Musculoskeletal: no cyanosis or clubbing, extremities motor strength 5/5 Skin: no rashes, warm and dry Neurologic: PERRL, EOMI, accommodation nl, no face palsy, no dysarthria Psychiatric: A+Ox3, euthymic affect Results & Data Laboratory Results Short CBC 07/15/18 Range/Units 05:19 WBC 8.31 (4.8-10.8) K/uL Hgb 12.2 (12.0-16.0) g/dL Hct 37.6 (37-47) % Plt Count 296 (130-400) K/uL BMP 07/15/18 05:19 Sodium 144 Potassium 3.5 Chloride 112 H Carbon Dioxide 29 BUN 7 Creatinine 0.75 Glucose 87 Calcium 8.2 L Medications Administered Current Inpatient Medications Acetaminophen (Tylenol) 650 mg PO Q4H PRN PRN Reason: pain/fever Stop: 08/12/18 13:57 Albuterol (Duoneb) 3 ml NEB QIDR [facility] Stop: 08/12/18 15:59 Last Admin: 07/15/18 11:44 Dose: 3 ml Documented by: Alprazolam (Xanax) 0.5 mg PO TID PRN PRN Reason: Anxiety Stop: 08/12/18 13:57 Last Admin: 07/14/18 14:12 Dose: 0.5 mg Documented by: Amoxicillin/Clavulanate Potassium (Augmentin 875mg) 1 tab PO BIDM [facility]; Protocol Stop: 07/23/18 16:59 Bupropion HCl (Wellbutrin-Sr) 200 mg PO BID17 [facility] Stop: 08/12/18 16:59 Last Admin: 07/15/18 08:01 Dose: 200 mg Documented by: Cyanocobalamin (Vitamin B-12) [facility] [place] Stop: 08/13/18 08:59 Last Admin: 07/15/18 08:01 Dose: 500 mcg Documented by: Dicyclomine HCl (Bentyl) 20 mg PO Q6H PRN PRN Reason: Abdominal Pain Stop: 08/12/18 13:57 Last Admin: 07/14/18 21:16 Dose: 20 mg Documented by: Enoxaparin Sodium (Lovenox) 30 mg SQ DAILY [facility] Stop: 08/12/18 13:57 Last Admin: 07/15/18 08:01 Dose: 30 mg Documented by: Ferrous Sulfate (Feosol) 325 mg PO [facility] Stop: 08/13/18 08:59 Last Admin: 07/15/18 08:00 Dose: 325 mg Documented by: Fish Oil ([place]-3 (Purified Fish Oil)) 1 gm PO [facility] Stop: 08/13/18 08:59 Last Admin: 07/15/18 08:01 Dose: 1 gm Documented by: Gabapentin (Neurontin) 300 mg PO TID [facility] Stop: 08/12/18 13:59 Last Admin: 07/15/18 08:00 Dose: 300 mg Documented by: Hydralazine HCl (Hydralazine Hcl) 10 mg IV Q6H PRN PRN Reason: Blood Pressure - High Stop: 08/12/18 14:14 Last Admin: 07/14/18 12:10 Dose: 10 mg Documented by: Hydromorphone HCl (Dilaudid) 0.5 mg IV Q6H PRN PRN Reason: Pain Stop: 07/27/18 15:19 Last Admin: 07/15/18 07:59 Dose: 0.5 mg Documented by: Ketorolac Tromethamine (Toradol) 15 mg IV Q6H PRN PRN Reason: Pain Stop: 07/18/18 14:38 Last Admin: 07/15/18 10:21 Dose: 15 mg Documented by: Lisinopril (Zestril) 20 mg PO QAM [facility] Stop: 08/12/18 13:46 Last Admin: 07/15/18 08:00 Dose: 20 mg Documented by: Multivitamins/Minerals (Caltrate Plus) 1 tab PO QAM [facility] Stop: 08/13/18 08:59 Last Admin: 07/15/18 08:00 Dose: 1 tab Documented by: Oxycodone/Acetaminophen (Percocet 5mg/325mg) 1 tab PO 5XDQ4H PRN PRN Reason: Pain Stop: 07/27/18 13:57 Ranitidine HCl (Zantac) 150 mg PO BID [facility] Stop: 08/12/18 20:59 Last Admin: 07/15/18 08:01 Dose: 150 mg Documented by: Tramadol HCl (Ultram) 50 mg PO Q6H PRN PRN Reason: Pain Stop: 08/12/18 13:57 Last Admin: 07/14/18 07:18 Dose: 50 mg Documented by: Trazodone HCl (Desyrel) 50 mg PO HS [facility] Stop: 08/12/18 20:59 Last Admin: 07/14/18 21:17 Dose: 50 mg Documented by: Vitamin E (Vitamin E) 800 units PO DAILY [facility] Stop: 08/13/18 08:59 Last Admin: 07/15/18 08:00 Dose: 800 units Documented by:
[2018-07-15] MEDS ORDERED: ALBUT/IPRATROP 3MG/0.5MG NEB 3 ML VIAL NEB PRN (12:45)
[2018-07-15] MEDS: IPRATROPIUM BROMIDE/ALBUTEROL respimat INH INH SCH ×3 (14:50→20:35)
[2018-07-15] MEDS: AMOXICILLIN/CLAVULANATE 875 MG TAB PO SCH (17:18)
[2018-07-15] MEDS: TRAZODONE HCL 50 MG TAB PO SCH (20:36)
[2018-07-15] MEDS ORDERED: AMOXICILLIN/CLAVULANATE 875 MG TAB PO SCH (21:00)
[2018-07-16] MEDS: ALPRAZolam 0.5 MG TABLET PO PRN ×2 (00:05→15:45)
[2018-07-16] MEDS: MAGNESIUM HYDROXIDE SUSP 30 ML UDC PO PRN (00:06)
[2018-07-16] MEDS: KETOROLAC TROMETHAMINE 15 MG/ML VIAL IV PRN ×4 (00:09→21:55)
[2018-07-16] MEDS: HYDROmorphone INJ 0.5 MG/0.5 ML SYR IV PRN ×3 (05:45→18:42)
[2018-07-16 06:33] LABS: Hematocrit (blood only) 39.3 % (37-47); Mean Corpuscular Hgb Conc 33.1 g/dL (32-36); Mean Corpuscular Volume 95.2 fL (80-100); Mean Platelet Volume 9.1 fL (7.4-10.4); Platelet Count 291 K/uL (130-400); RDW Coefficient of Variation 13.6 % (11.5-14.5); RDW Standard Deviation 47.4 fL (36.4-46.3); Red Blood Count 4.13 M/uL (4.2-5.4); White Blood Count 7.78 K/uL (4.8-10.8)
[2018-07-16 06:49] LABS: Creatinine Clr Calc Pharmacy 72.6 ml/min; Est GFR (African American) 110.4; Est GFR (Non-African American) 95.3
[2018-07-16] MEDS: AMOXICILLIN/CLAVULANATE 875 MG TAB PO SCH ×2 (07:58→17:56)
[2018-07-16] MEDS: TOCOPHERYL, DL-ALPHA 400 UNITS CAP PO SCH (07:59)
[2018-07-16] MEDS: OMEGA-3 (PURIFIED FISH OIL) 1 GM CAP PO SCH (07:59)
[2018-07-16] MEDS: LISINOPRIL 20 MG TAB PO SCH (07:59)
[2018-07-16] MEDS: FERROUS SULFATE 325 MG TAB PO SCH (08:00)
[2018-07-16] MEDS: CYANOCOBALAMIN 500 MCG TABLET (VITAMIN B-12) PO SCH (08:01)
[2018-07-16] MEDS: GABAPENTIN 300 MG CAP PO SCH ×3 (08:01→21:53)
[2018-07-16] MEDS: BuPROPion SR 100 MG TABCR PO SCH ×2 (08:01→17:56)
[2018-07-16] MEDS: CALCIUM 600MG + VIT D 400 IU TAB PO SCH (08:01)
[2018-07-16] MEDS: ENOXAPARIN INJ 30 MG/0.3 ML SYR SQ SCH (08:02)
[2018-07-16] MEDS: IPRATROPIUM BROMIDE/ALBUTEROL respimat INH INH SCH ×4 (08:02→21:53)
[2018-07-16] MEDS: TRAMADOL HCL 50 MG TABLET PO PRN (10:06)
[2018-07-16] MEDS: DICYCLOMINE HCL 20 MG TAB PO PRN (10:25)
--- NOTE | 2018-07-16 12:52 | Hospitalist Progress Note ---
Date of Service July 16, 2018 Assessment & Plan (1) Acute colitis: -Admit to [facility] -Patient presenting from home with reports of persistent left lower quadrant abdominal pain, CT ABD/pelvis in the ED demonstrates a mild nonspecific colitis -Patient with history of recurrent diverticulitis and C. difficile colitis in the past, however patient denies any current diarrhea -Recently started on Cipro and Flagyl as an outpatient (patient is only had a few doses of Flagyl and 1 dose of Cipro), will continue both for now -Labs unremarkable -Clear liquid diet, advance as tolerated -Supportive care with IVF, PRN pain medications, antiemetics -Clinically better clinically -We will continue current antibiotic -No mesenteric circulatory abnormality on Doppler -She complains to have abdominal pain this is nonspecific -Hemodynamically stable -Appreciate GI input and recommendation, Bentyl has been started -Likely discharge tomorrow (2) Hypertension: -Patient currently hypertensive, likely multifactorial secondary to pain and self stopping lisinopril -will give 1 dose of IV hydralazine -Pain control -Resume previous home dose of lisinopril -Blood pressure remains upper side of normal, will continue current medications (3) COPD, moderate: -Has COPD without any exacerbation -Patient noted to have wheezing and rhonchi on exam today -Start scheduled nebs -Patient had episode of hypoxia in the ED after administration of IV Dilaudid, likely secondary to hypoventilation -continue to monitor -No shortness of breath at rest and no spasm of the bronchioles on examination -No wheezing and/or shortness of breath (4) Anxiety: (5) Bipolar disorder: -Continue home meds (6) GERD (gastroesophageal reflux disease): -Continue H2 robyn (7) Tobacco abuse: -Patient counseled regarding tobacco cessation (8) Marijuana use: --Patient counseled regarding marijuana cessation and that it could be contributing to her abdominal pain (9) DVT prophylaxis: -SQ Lovenox Bowel has not moved Will try milk of magnesia for dyspepsia every 6 hours Has been having diarrhea we will DC milk of magnesia Stool for C. difficile colitis-negative Stool culture is pending Likely to go home tomorrow Subjective 07/14 The patient was seen and examined the medical floor She complains to have more pain in the abdomen without any distention and/or na usea, vomiting Feels a little bloated today 07/15 She has been feeling a lot better today Still has diarrhea though She has been out of baby 07/16 She has pain complaining of ongoing abdominal pain Seems to be out of proportion to her symptoms Has been moving her bowels normally Trying to ambulate in house GI consult requested Physical Exam Vital Signs (Past 24 Hours): Last Vital Signs Temp 36.7 C 07/16/18 07:09 Pulse 68 07/16/18 07:09 Resp 16 07/16/18 07:09 BP 144/70 H 07/16/18 07:09 Pulse Ox 93 07/16/18 07:09 Physical Exam: In moderate distress due to abdominal pain Constitutional: WD/WN, vitals as above Eyes: PERRL, conjunctivae normal, anicteric sclerae ENMT: external ear and nose normal, oropharynx normal Respiratory: normal respiratory effort; no respiratory distress Auscultation: + rhonchi (Bilateral) and + wheezes (Bilateral, expiratory) Cardiovascular: Rate/Rhythm: regular rate and regular rhythm Vessels: normal peripheral pulses Extremities: no edema Gastrointestinal (Abdomen): Inspection/Auscultation: abdomen normal to inspection and normal bowel sounds; abdomen not distended Percussion/Palpation: + abdomen tender (Minimally tender left lower quadrant without any guarding and no rigidity) and abdomen soft; no hepatosplenomegaly Musculoskeletal: no cyanosis or clubbing, extremities motor strength 5/5 Skin: no rashes, warm and dry Neurologic: PERRL, EOMI, accommodation nl, no face palsy, no dysarthria Psychiatric: A+Ox3, euthymic affect Results & Data Laboratory Results Short CBC 07/16/18 Range/Units 05:26 WBC 7.78 (4.8-10.8) K/uL Hgb 13.0 (12.0-16.0) g/dL Hct 39.3 (37-47) % Plt Count 291 (130-400) K/uL BMP 07/16/18 05:26 Creatinine 0.69 Medications Administered Current Inpatient Medications Acetaminophen (Tylenol) 650 mg PO Q4H PRN PRN Reason: pain/fever Stop: 08/12/18 13:57 Albuterol (Duoneb) 3 ml NEB QIDR PRN PRN Reason: Shortness Of Breath Or Wheezing Stop: 08/12/18 15:59 Albuterol (Combivent Respimat) 1 puffs INH QID [facility] Stop: 08/14/18 12:59 Last Admin: 07/16/18 12:22 Dose: 1 puffs Documented by: Alprazolam (Xanax) 0.5 mg PO TID PRN PRN Reason: Anxiety Stop: 08/12/18 13:57 Last Admin: 07/16/18 00:05 Dose: 0.5 mg Documented by: Amoxicillin/Clavulanate Potassium (Augmentin 875mg) 1 tab PO BIDM [facility]; Protocol Stop: 07/23/18 16:59 Last Admin: 07/16/18 07:58 Dose: 1 tab Documented by: Bupropion HCl (Wellbutrin-Sr) 200 mg PO BID17 [facility] Stop: 08/12/18 16:59 Last Admin: 07/16/18 08:01 Dose: 200 mg Documented by: Cyanocobalamin (Vitamin B-12) 500 mcg PO QAM [facility] Stop: 08/13/18 08:59 Last Admin: 07/16/18 08:01 Dose: 500 mcg Documented by: Dicyclomine HCl (Bentyl) 20 mg PO TID [facility] Stop: 08/15/18 16:59 Enoxaparin Sodium (Lovenox) 30 mg SQ DAILY [facility] Stop: 08/12/18 13:57 Last Admin: 07/16/18 08:02 Dose: 30 mg Documented by: Ferrous Sulfate (Feosol) 325 mg PO QAM [facility] Stop: 08/13/18 08:59 Last Admin: 07/16/18 08:00 Dose: 325 mg Documented by: Fish Oil ([place]-3 (Purified Fish Oil)) 1 gm PO QAM [facility] Stop: 08/13/18 08:59 Last Admin: 07/16/18 07:59 Dose: 1 gm Documented by: Gabapentin (Neurontin) 300 mg PO TID [facility] Stop: 08/12/18 13:59 Last Admin: 07/16/18 08:01 Dose: 300 mg Documented by: Hydralazine HCl (Hydralazine Hcl) 10 mg IV Q6H PRN PRN Reason: Blood Pressure - High Stop: 08/12/18 14:14 Last Admin: 07/14/18 12:10 Dose: 10 mg Documented by: Hydromorphone HCl (Dilaudid) 0.5 mg IV Q6H PRN PRN Reason: Pain Stop: 07/27/18 15:19 Last Admin: 07/16/18 12:19 Dose: 0.5 mg Documented by: Ketorolac Tromethamine (Toradol) 15 mg IV Q6H PRN PRN Reason: Pain Stop: 07/18/18 14:38 Last Admin: 07/16/18 08:08 Dose: 15 mg Documented by: Lisinopril (Zestril) 20 mg PO QAM [facility] Stop: 08/12/18 13:46 Last Admin: 07/16/18 07:59 Dose: 20 mg Documented by: Magnesium Hydroxide (Milk Of Magnesia) 30 ml PO Q6H PRN PRN Reason: Dyspepsia Stop: 08/14/18 23:33 Last Admin: 07/16/18 00:06 Dose: 30 ml Documented by: Multivitamins/Minerals (Caltrate Plus) 1 tab PO QAM [facility] Stop: 08/13/18 08:59 Last Admin: 07/16/18 08:01 Dose: 1 tab Documented by: Oxycodone/Acetaminophen (Percocet 5mg/325mg) 1 tab PO 5XDQ4H PRN PRN Reason: Pain Stop: 07/27/18 13:57 Ranitidine HCl (Zantac) 150 mg PO BID [facility] Stop: 08/12/18 20:59 Last Admin: 07/16/18 08:02 Dose: 150 mg Documented by: Tramadol HCl (Ultram) 50 mg PO Q6H PRN PRN Reason: Pain Stop: 08/12/18 13:57 Last Admin: 07/16/18 10:06 Dose: 50 mg Documented by: Trazodone HCl (Desyrel) 50 mg PO HS [facility] Stop: 08/12/18 20:59 Last Admin: 07/15/18 20:36 Dose: 50 mg Documented by: Vitamin E (Vitamin E) 800 units PO DAILY [facility] Stop: 08/13/18 08:59 Last Admin: 07/16/18 07:59 Dose: 800 units Documented by:
--- NOTE | 2018-07-16 13:35 | Gastrointestinal Consultation ---
Date of Consultation July 16, 2018 Assessment & Plan (1) Abdominal pain: (2) Acute colitis: Pt is a 58 y/o female c/o LLQ abd pain w/o n/v, fever, chills. CT abd/pelvis w signs of non specific colitis. Mesenteric u/s w/o signs of stenosis. Hx of Cdiff and recurrent diverticulitis. However Cdiff was negative this time and also no signs of diverticulitis on CT scan. Her pain seems out of porpotion to exam findings - no signs of guarding or rigidity on palpation of abd but she would moan a bit on palpation of her LLQ area. She's been requiring Dilaudid for her pain, able to tolerate diet well otherwise. - Cdiff negative, check stool cx - Low residue diet. - Will schedule Bentyl 20mg TID - Recommend DC'ing narcotics as no clear indication for use in setting of uncomplicated colitis. - Offered repeat colonoscopy but pt refused at this time. - No new GI workup, will sign off; f/u w Dr. Upton in outpt GI clinic. Supervising Physician Co-Signing Physician Notes I performed a history and physical examination of the patient, including specifically on physical exam - soft, nontender abdomen. I have discussed the patient's management with Theresa. Please refer to the nurse practitioner's note for the documented findings and plan of care. 58 Female patient admitted with abdominal pain, nonspecific findigns on CT scan but overall unremarkable, no change in bowel hait, tolerating PO diet. Labs all normal. ?opioid dependance. Likely IBS. Bentyl and low residue diet. Follow up as OP in GI office. History of Present Illness Reason for Consultation: LLQ abd pain Requesting Physician: Dr. Froylan Bradshaw Attending Physician: Dr. Skip Salinas History of Present Illness Pt is a 58 y/o female currently admitted for left lower quadrant abdominal pain. She has hx of Cdiff, recurrent diverticulitis previously treated w Cipro/Flagyl. She denies any fever, chills, CP, SOB. She is able to eat meals w/o worsening of her LLQ abd pain, no n/v. Pain is worse w motion such as when she's trying to sit from laying down. She denies diarrhea until yesterday. Denies any rectal bleeding. She tried taking Bentyl at home but said it didn't relief the pain. Upon evaluation she did have mild leukocytosis WBC 12K, H/H normal. CT abd/pelvis showed signs of non specific colitis. No diverticulitis. Mesenteric u/s normal w/o signs of stenosis. She had previous colonscopy by Dr. Upton w findnigns of diverticulosis, int hemorrhoids, and adenomatous polyps. Her repeat Cdiff yesterday was negative. Allergies Allergy/AdvReac Type Severity Reaction Status Date / Time lorazepam Allergy Mild UNK Verified 07/13/18 11:02 bee venom protein (honey bee) Allergy Unknown "LUNGS Unverified 07/13/18 11:02 CLOSE UP" capsaicin Allergy Unknown Verified 07/13/18 11:02 diclofenac Allergy Unknown Verified 07/13/18 11:02 Diclopak Allergy Unknown Verified 06/24/17 10:37 risperidone Allergy Unknown UNKNOWN Verified 07/13/18 11:02 Home Medications Home Medications Medication Instructions Recorded Confirmed Type Bifidobacterium infantis [Align] 4 mg PO DAILY 12/31/17 07/13/18 History albuterol sulfate 2.5 mg INHALATION QID PRN 12/31/17 07/13/18 History bupropion HCl [Wellbutrin SR] 200 mg PO BID 12/31/17 07/13/18 History calcium carbonate-vitamin D3 1 tab PO QAM 12/31/17 07/13/18 History [Calcium 500 + D (D3)] cyanocobalamin (vitamin B-12) 500 mcg PO QAM 12/31/17 07/13/18 History [Vitamin B-12] cyclobenzaprine 10 mg PO HS PRN 12/31/17 07/13/18 History dicyclomine 20 mg PO Q6H PRN 12/31/17 07/13/18 History ferrous sulfate 325 mg PO QAM 12/31/17 07/13/18 History fluticasone propionate [Flonase 2 spray INTRANASAL BID PRN 12/31/17 07/13/18 History Allergy Relief] gabapentin [Neurontin] 300 mg PO TID 12/31/17 07/13/18 History ipratropium-albuterol [Combivent 1 puff INHALATION QID PRN 12/31/17 07/13/18 History Respimat] omega 4-nsf-vez-fish oil [Fish Oil] 1,000 mg PO QAM 12/31/17 07/13/18 History oxycodone-acetaminophen [Percocet] 1 tab PO 5XD 12/31/17 07/13/18 History ranitidine HCl [Zantac] 150 mg PO BID 12/31/17 07/13/18 History vitamin E 800 unit PO DAILY 12/31/17 07/13/18 History ciprofloxacin HCl 500 mg PO Q12H 7 Days #14 tab 07/12/18 07/13/18 Rx alprazolam 0.5 mg PO TID PRN 07/13/18 07/13/18 History lisinopril 20 mg PO QAM 07/13/18 07/13/18 History metronidazole [Flagyl] 500 mg PO TID 07/13/18 07/13/18 History trazodone 50 mg PO HS 07/13/18 07/13/18 History wheat dextrin-calcium carb 1 tab PO DAILY 07/13/18 07/13/18 History Patient History Medical History Marijuana use (Chronic) Tobacco abuse (Chronic) C. difficile diarrhea (Resolved) Diverticulitis (Resolved) Fibromyalgia (Chronic) Bipolar disorder (Chronic) Anxiety (Chronic) Hypertension (Chronic) COPD, moderate (Chronic) GERD (gastroesophageal reflux disease) (Chronic) Recurrent Clostridium difficile diarrhea (Resolved) Colitis (Inactive) Surgical History Previous section (Resolved) History of tubal ligation (Resolved) Family History Mother Diabetes Social History Preferred Language: [place] Communication Ability: Effective Low Heel Builder Required: No Beliefs That Will Affect Care: None Current Living Situation: Alone Other Information That Helps Us Care for You: No Feels Safe at Home: Yes Safety Concerns: Feels Safe At This Time Smoking Status: Current every day smoker Hx Alcohol Use: No Hx Substance Use: Yes Review of Systems Constitutional: no fever and no chills Respiratory: no cough and no dyspnea Cardiovascular: no chest pain Gastrointestinal: as per Subjective / HPI Physical Exam Vital Signs (Past 24 Hours): Last Vital Signs Temp 36.7 C 07/16/18 07:09 Pulse 68 07/16/18 07:09 Resp 16 07/16/18 07:09 BP 144/70 H 07/16/18 07:09 Pulse Ox 93 07/16/18 07:09 Constitutional: WD/WN, vitals as above well groomed, cooperative and comfortable Eyes: PERRL, conjunctivae normal, anicteric sclerae ENMT: external ear and nose normal, oropharynx normal Respiratory: normal respiratory effort, lungs clear to auscultation Cardiovascular: RRR, no murmur, no edema Gastrointestinal (Abdomen): Inspection/Auscultation: normal bowel sounds Percussion/Palpation: + abdomen tender (LLQ) and abdomen soft; no guarding and abdomen not rigid Skin: no rashes, warm and dry no jaundice Neurologic: Motor/Sensory: no asterixis Psychiatric: A+Ox3, euthymic affect Lymphatic: no lymphedema Results & Data Laboratory Results Laboratory Results - last 72 hr 07/14/18 07/14/18 07/14/18 05:13 05:13 07:20 WBC 12.21 H RBC 4.38 Hgb 13.8 D Hct 41.7 MCV 95.2 MCH 31.5 MCHC 33.1 RDW Std Deviation 47.2 H RDW Coeff of [place] 13.7 Plt Count 326 MPV 9.2 Immature Gran % (Auto) 0.3 Neut % (Auto) 76.9 Lymph % (Auto) 15.3 [place] % (Auto) 6.8 Eos % (Auto) 0.6 Baso % (Auto) 0.1 Immature Gran # (Auto) 0.04 H Neut # (Auto) 9.39 H Lymph # (Auto) 1.87 [place] # (Auto) 0.83 H Eos # (Auto) 0.07 Baso # (Auto) 0.01 Sodium 144 D Potassium 3.1 L D Chloride 112 H Carbon Dioxide 26 Anion Gap 6.0 BUN 9 Creatinine 0.68 Est Cr Clr Drug Dosing 73.7 Est GFR ( Amer) 111.0 Est GFR (Non-Af Amer) 95.7 BUN/Creatinine Ratio 13.7 Glucose 104 H Calcium 8.5 Magnesium 1.9 Urine Color Yellow Urine Appearance Clear Urine pH 6.5 Ur Specific [place] 1.015 Urine Protein Negative Urine Glucose (UA) Negative Urine Ketones Negative Urine Blood Negative Urine Nitrite Negative Urine Bilirubin Negative Urine Urobilinogen Negative Ur Leukocyte Esterase Negative Stl C. diff Tox B Gene 07/15/18 07/15/18 07/15/18 05:19 05:19 13:35 WBC 8.31 RBC 3.92 L Hgb 12.2 Hct 37.6 MCV 95.9 MCH 31.1 MCHC 32.4 RDW Std Deviation 49.2 H RDW Coeff of [place] 14.0 Plt Count 296 MPV 9.0 Immature Gran % (Auto) 0.1 Neut % (Auto) 60.7 Lymph % (Auto) 30.2 [place] % (Auto) 7.3 Eos % (Auto) 1.6 Baso % (Auto) 0.1 Immature Gran # (Auto) 0.01 Neut # (Auto) 5.04 Lymph # (Auto) 2.51 [place] # (Auto) 0.61 H Eos # (Auto) 0.13 Baso # (Auto) 0.01 Sodium 144 Potassium 3.5 Chloride 112 H Carbon Dioxide 29 Anion Gap 3.0 BUN 7 Creatinine 0.75 Est Cr Clr Drug Dosing 66.8 Est GFR ( Amer) 101.1 Est GFR (Non-Af Amer) 87.2 BUN/Creatinine Ratio 9.6 L Glucose 87 Calcium 8.2 L Magnesium Urine Color Urine Appearance Urine pH Ur Specific [place] Urine Protein Urine Glucose (UA) Urine Ketones Urine Blood Urine Nitrite Urine Bilirubin Urine Urobilinogen Ur Leukocyte Esterase Stl C. diff Tox B Gene Negative Cdiff Gene 07/16/18 07/16/18 05:26 05:26 WBC 7.78 RBC 4.13 L Hgb 13.0 Hct 39.3 MCV 95.2 MCH 31.5 MCHC 33.1 RDW Std Deviation 47.4 H RDW Coeff of [place] 13.6 Plt Count 291 MPV 9.1 Immature Gran % (Auto) Neut % (Auto) Lymph % (Auto) [place] % (Auto) Eos % (Auto) Baso % (Auto) Immature Gran # (Auto) Neut # (Auto) Lymph # (Auto) [place] # (Auto) Eos # (Auto) Baso # (Auto) Sodium Potassium Chloride Carbon Dioxide Anion Gap BUN Creatinine 0.69 Est Cr Clr Drug Dosing 72.6 Est GFR ( Amer) 110.4 Est GFR (Non-Af Amer) 95.3 BUN/Creatinine Ratio Glucose Calcium Magnesium Urine Color Urine Appearance Urine pH Ur Specific [place] Urine Protein Urine Glucose (UA) Urine Ketones Urine Blood Urine Nitrite Urine Bilirubin Urine Urobilinogen Ur Leukocyte Esterase Stl C. diff Tox B Gene
[2018-07-16] MEDS: OXYCODONE/ACETAMINOPHEN 5mg/325mg TAB PO PRN ×2 (15:44→21:55)
[2018-07-16] MEDS: DICYCLOMINE HCL 20 MG TAB PO SCH ×2 (17:57→21:53)
[2018-07-16] MEDS: TRAZODONE HCL 50 MG TAB PO SCH (21:54)
[2018-07-17] MEDS: HYDROmorphone INJ 0.5 MG/0.5 ML SYR IV PRN ×2 (00:57→07:46)
[2018-07-17] MEDS: OXYCODONE/ACETAMINOPHEN 5mg/325mg TAB PO PRN ×2 (04:52→11:19)
[2018-07-17] MEDS: CALCIUM 600MG + VIT D 400 IU TAB PO SCH (07:44)
[2018-07-17] MEDS: AMOXICILLIN/CLAVULANATE 875 MG TAB PO SCH (07:44)
[2018-07-17] MEDS: OMEGA-3 (PURIFIED FISH OIL) 1 GM CAP PO SCH (07:44)
[2018-07-17] MEDS: LISINOPRIL 20 MG TAB PO SCH (07:44)
[2018-07-17] MEDS: BuPROPion SR 100 MG TABCR PO SCH (07:44)
[2018-07-17] MEDS: GABAPENTIN 300 MG CAP PO SCH ×2 (07:44→14:04)
[2018-07-17] MEDS: IPRATROPIUM BROMIDE/ALBUTEROL respimat INH INH SCH ×2 (07:45→14:04)
[2018-07-17] MEDS: CYANOCOBALAMIN 500 MCG TABLET (VITAMIN B-12) PO SCH (07:45)
[2018-07-17] MEDS: DICYCLOMINE HCL 20 MG TAB PO SCH ×2 (07:45→14:04)
[2018-07-17] MEDS: TOCOPHERYL, DL-ALPHA 400 UNITS CAP PO SCH (07:45)
[2018-07-17] MEDS: FERROUS SULFATE 325 MG TAB PO SCH (07:45)
[2018-07-17] MEDS: ENOXAPARIN INJ 30 MG/0.3 ML SYR SQ SCH (07:46)
--- NOTE | 2018-07-17 11:17 | Hospitalist Progress Note ---
Date of Service July 17, 2018 Assessment & Plan (1) Acute colitis: -Admit to [facility] -Patient presenting from home with reports of persistent left lower quadrant abdominal pain, CT ABD/pelvis in the ED demonstrates a mild nonspecific colitis -Patient with history of recurrent diverticulitis and C. difficile colitis in the past, however patient denies any current diarrhea -Recently started on Cipro and Flagyl as an outpatient (patient is only had a few doses of Flagyl and 1 dose of Cipro), will continue both for now -Labs unremarkable -Clear liquid diet, advance as tolerated -Supportive care with IVF, PRN pain medications, antiemetics -Clinically better clinically -We will continue current antibiotic -No mesenteric circulatory abnormality on Doppler -She complains to have abdominal pain this is nonspecific -Hemodynamically stable -Appreciate GI input and recommendation, Bentyl has been started -Has been feeling a lot better following administration of pain to -Clinically a lot better to be discharged -Abdominal pain is controlled and not going to have any procedure while in the hospital (2) Hypertension: -Patient currently hypertensive, likely multifactorial secondary to pain and self stopping lisinopril -will give 1 dose of IV hydralazine -Pain control -Resume previous home dose of lisinopril -Blood pressure remains upper side of normal, will continue current medications (3) COPD, moderate: -Has COPD without any exacerbation -Patient noted to have wheezing and rhonchi on exam today -Start scheduled nebs -Patient had episode of hypoxia in the ED after administration of IV Dilaudid, likely secondary to hypoventilation -continue to monitor -No shortness of breath at rest and no spasm of the bronchioles on examination -No wheezing and/or shortness of breath -Denies any respiratory symptoms (4) Anxiety: Denies any acute anxiety (5) Bipolar disorder: -Continue home meds (6) GERD (gastroesophageal reflux disease): -Continue H2 robyn (7) Tobacco abuse: -Patient counseled regarding tobacco cessation (8) Marijuana use: --Patient counseled regarding marijuana cessation and that it could be contributing to her abdominal pain (9) DVT prophylaxis: -SQ Lovenox Bowel has not moved Will try milk of magnesia for dyspepsia every 6 hours Has been having diarrhea we will DC milk of magnesia Stool for C. difficile colitis-negative Stool culture is pending-negative so far Likely to go home tomorrow Subjective 07/14 The patient was seen and examined the medical floor She complains to have more pain in the abdomen without any distention and/or nausea, vomiting Feels a little bloated today 07/15 She has been feeling a lot better today Still has diarrhea though She has been out of baby 07/16 She has pain complaining of ongoing abdominal pain Seems to be out of proportion to her symptoms Has been moving her bowels normally Trying to ambulate in house GI consult requested 07/17 The patient was seen and examined in medical floor She has been feeling a lot better following administration of Bentyl Denies any more diarrhea Abdominal pain seems to be controlled Tolerating regular diet and ambulating well Physical Exam Vital Signs (Past 24 Hours): Last Vital Signs Temp 36.4 C L 07/17/18 07:46 Pulse 63 07/17/18 07:46 Resp 17 07/17/18 07:46 BP 106/70 07/17/18 07:46 Pulse Ox 93 07/17/18 07:46 Physical Exam: No apparent distress at rest Constitutional: WD/WN, vitals as above Eyes: PERRL, conjunctivae normal, anicteric sclerae ENMT: external ear and nose normal, oropharynx normal Respiratory: normal respiratory effort; no respiratory distress Auscultation: + rhonchi (Bilateral) and + wheezes (Bilateral, expiratory) Cardiovascular: Rate/Rhythm: regular rate and regular rhythm Vessels: normal peripheral pulses Extremities: no edema Gastrointestinal (Abdomen): Inspection/Auscultation: abdomen normal to inspection and normal bowel sounds; abdomen not distended Percussion/Palpation: abdomen soft; abdomen nontender and no hepatosplenomegaly Musculoskeletal: no cyanosis or clubbing, extremities motor strength 5/5 Skin: no rashes, warm and dry Neurologic: PERRL, EOMI, accommodation nl, no face palsy, no dysarthria Psychiatric: A+Ox3, euthymic affect Results & Data Medications Administered Current Inpatient Medications Acetaminophen (Tylenol) 650 mg PO Q4H PRN PRN Reason: pain/fever Stop: 08/12/18 13:57 Albuterol (Duoneb) 3 ml NEB QIDR PRN PRN Reason: Shortness Of Breath Or Wheezing Stop: 08/12/18 15:59 Albuterol (Combivent Respimat) 1 puffs INH QID RADHA Stop: 08/14/18 12:59 Last Admin: 07/17/18 07:45 Dose: 1 puffs Documented by: Alprazolam (Xanax) 0.5 mg PO TID PRN PRN Reason: Anxiety Stop: 08/12/18 13:57 Last Admin: 07/16/18 15:45 Dose: 0.5 mg Documented by: Amoxicillin/Clavulanate Potassium (Augmentin 875mg) 1 tab PO BIDM [facility]; Protocol Stop: 07/23/18 16:59 Last Admin: 07/17/18 07:44 Dose: 1 tab Documented by: Bupropion HCl (Wellbutrin-Sr) 200 mg PO BID17 [facility] Stop: 08/12/18 16:59 Last Admin: 07/17/18 07:44 Dose: 200 mg Documented by: Cyanocobalamin (Vitamin B-12) 500 mcg PO QAM [facility] Stop: 08/13/18 08:59 Last Admin: 07/17/18 07:45 Dose: 500 mcg Documented by: Dicyclomine HCl (Bentyl) 20 mg PO TID [facility] Stop: 08/15/18 16:59 Last Admin: 07/17/18 07:45 Dose: 20 mg Documented by: Enoxaparin Sodium (Lovenox) 30 mg SQ DAILY [facility] Stop: 08/12/18 13:57 Last Admin: 07/17/18 07:46 Dose: 30 mg Documented by: Ferrous Sulfate (Feosol) 325 mg PO QAM [facility] Stop: 08/13/18 08:59 Last Admin: 07/17/18 07:45 Dose: 325 mg Documented by: Fish Oil (Mountain-3 (Purified Fish Oil)) [facility] [place] Stop: 08/13/18 08:59 Last Admin: 07/17/18 07:44 Dose: 1 gm Documented by: Gabapentin (Neurontin) 300 mg PO TID [facility] Stop: 08/12/18 13:59 Last Admin: 07/17/18 07:44 Dose: 300 mg Documented by: Hydralazine HCl (Hydralazine Hcl) 10 mg IV Q6H PRN PRN Reason: Blood Pressure - High Stop: 08/12/18 14:14 Last Admin: 07/14/18 12:10 Dose: 10 mg Documented by: Hydromorphone HCl (Dilaudid) 0.5 mg IV Q6H PRN PRN Reason: Pain Stop: 07/27/18 15:19 Last Admin: 07/17/18 07:46 Dose: 0.5 mg Documented by: Ketorolac Tromethamine (Toradol) 15 mg IV Q6H PRN PRN Reason: Pain Stop: 07/18/18 14:38 Last Admin: 07/16/18 21:55 Dose: 15 mg Documented by: Lisinopril (Zestril) 20 mg PO QAM [facility] Stop: 08/12/18 13:46 Last Admin: 07/17/18 07:44 Dose: 20 mg Documented by: Magnesium Hydroxide (Milk Of Magnesia) 30 ml PO Q6H PRN PRN Reason: Dyspepsia Stop: 08/14/18 23:33 Last Admin: 07/16/18 00:06 Dose: 30 ml Documented by: Multivitamins/Minerals (Caltrate Plus) 1 tab PO QAM [facility] Stop: 08/13/18 08:59 Last Admin: 07/17/18 07:44 Dose: 1 tab Documented by: Oxycodone/Acetaminophen (Percocet 5mg/325mg) 1 tab PO 5XDQ4H PRN PRN Reason: Pain Stop: 07/27/18 13:57 Last Admin: 07/17/18 04:52 Dose: 1 tab Documented by: Ranitidine HCl (Zantac) 150 mg PO BID [facility] Stop: 08/12/18 20:59 Last Admin: 07/17/18 07:45 Dose: 150 mg Documented by: Tramadol HCl (Ultram) 50 mg PO Q6H PRN PRN Reason: Pain Stop: 08/12/18 13:57 Last Admin: 07/16/18 10:06 Dose: 50 mg Documented by: Trazodone HCl (Desyrel) 50 mg PO HS [facility] Stop: 08/12/18 20:59 Last Admin: 07/16/18 21:54 Dose: 50 mg Documented by: Vitamin E (Vitamin E) 800 units PO DAILY [facility] Stop: 08/13/18 08:59 Last Admin: 07/17/18 07:45 Dose: 800 units Documented by:
[2018-07-17] MEDS: MAGNESIUM HYDROXIDE SUSP 30 ML UDC PO PRN (11:19)
--- NOTE | 2018-07-18 08:48 | Discharge Summary ---
Date of Service July 18, 2018 Admission HPI Per Admitting Provider 58-year-old female who presents to the ED with left lower quadrant abdominal pain. Patient reports history of recurrent diverticulitis and reports her pain feels similar to her flareups in the past. Patient contacted her PCP yesterday who prescribed Flagyl. Patient was also evaluated in the ED yesterday. She was given a prescription for Cipro to take with the Flagyl. Patient reports no improvement in her symptoms since returning home. She reports severe, stabbing, persistent left lower quadrant abdominal pain. Pain is made worse with any type of movement. She denies nausea, vomiting, diarrhea. Reports normal bowel movement this morning. No fevers or chills. She denies chest pain and shortness of breath. Reports she had noted some increased wheezing today (smokes 1 pack of cigarettes per day and has some mild wheezing at baseline she reports). No lightheadedness, dizziness, diaphoresis, syncopal events. She denies any urinary symptoms. In the ED today, CT ABD/pelvis is showing a mild nonspecific colitis. Labs are unremarkable. Patient is hypertensive but otherwise vitals are stable. Reports she only takes her lisinopril when she is feeling anxious. In the ED, she was given IVF, p.o. Flagyl, IV Toradol, IV Dilaudid, IM dicyclomine, p.o. Cipro, IV Tylenol. Patient became hypoxic at 84% after administration of IV Dilaudid, currently saturating well on 2 L of oxygen. Admission Exam Per Admitting Provider Vital Signs (Past 24 Hours): Last Vital Signs Temp 36.4 C L 07/17/18 07:46 Pulse 63 07/17/18 07:46 Resp 17 07/17/18 07:46 BP 106/70 07/17/18 07:46 Pulse Ox 93 07/17/18 07:46 Physical Exam: No apparent distress at rest Constitutional: WD/WN, vitals as above Eyes: PERRL, conjunctivae normal, anicteric sclerae ENMT: external ear and nose normal, oropharynx normal Respiratory: normal respiratory effort; no respiratory distress Auscultation: + rhonchi (Bilateral) and + wheezes (Bilateral, expiratory) Cardiovascular: Rate/Rhythm: regular rate and regular rhythm Vessels: normal peripheral pulses Extremities: no edema Gastrointestinal (Abdomen): Inspection/Auscultation: abdomen normal to inspection and normal bowel sounds; abdomen not distended Percussion/Palpation: abdomen soft; abdomen nontender and no hepatosplenomegaly Musculoskeletal: no cyanosis or clubbing, extremities motor strength 5/5 Skin: no rashes, warm and dry Neurologic: PERRL, EOMI, accommodation nl, no face palsy, no dysarthria Psychiatric: A+Ox3, euthymic affect Principal Diagnosis Nonspecific colitis, abdominal pain-resolved Discharge Exam Constitutional WD/WN, vitals as above Eyes PERRL, conjunctivae normal, anicteric sclerae ENMT external ear and nose normal, oropharynx normal Respiratory normal respiratory effort; no respiratory distress Auscultation: + rhonchi (Bilateral) and + wheezes (Bilateral, expiratory) Cardiovascular Rate/Rhythm: regular rate and regular rhythm Vessels: normal peripheral pulses Extremities: no edema Gastrointestinal (Abdomen) Inspection/Auscultation: abdomen normal to inspection and normal bowel sounds; abdomen not distended Percussion/Palpation: abdomen soft; abdomen nontender and no hepatosplenomegaly Musculoskeletal no cyanosis or clubbing, extremities motor strength 5/5 Skin no rashes, warm and dry Neurologic PERRL, EOMI, accommodation nl, no face palsy, no dysarthria Psychiatric A+Ox3, euthymic affect Discharge Data Allergies Allergy/AdvReac Type Severity Reaction Status Date / Time lorazepam Allergy Mild UNK Verified 07/13/18 11:02 bee venom protein (honey bee) Allergy Unknown "LUNGS Unverified 07/13/18 11:02 CLOSE UP" capsaicin Allergy Unknown Verified 07/13/18 11:02 diclofenac Allergy Unknown Verified 07/13/18 11:02 Diclopak Allergy Unknown Verified 06/24/17 10:37 risperidone Allergy Unknown UNKNOWN Verified 07/13/18 11:02 Consultations 07/13/18 11:32 ED Decision to Admit Stat 07/16/18 10:33 Consult Gastroenterology Routine Ordered Studies 07/13/18 09:46 CT abd pelvis IV con only Stat 07/14/18 13:58 US duplex mesenteric Routine Hospital Course (1) Acute colitis: -Admit to [facility] -Patient presenting from home with reports of persistent left lower quadrant abdominal pain, CT ABD/pelvis in the ED demonstrates a mild nonspecific colitis -Patient with history of recurrent diverticulitis and C. difficile colitis in the past, however patient denies any current diarrhea -Recently started on Cipro and Flagyl as an outpatient (patient is only had a few doses of Flagyl and 1 dose of Cipro), will continue both for now -Labs unremarkable -Clear liquid diet, advance as tolerated -Supportive care with IVF, PRN pain medications, antiemetics -Clinically better clinically -We will continue current antibiotic -No mesenteric circulatory abnormality on Doppler -She complains to have abdominal pain this is nonspecific -Hemodynamically stable -Appreciate GI input and recommendation, Bentyl has been started -Has been feeling a lot better following administration of pain to -Clinically a lot better to be discharged -Abdominal pain is controlled and not going to have any procedure while in the hospital (2) Hypertension: -Patient currently hypertensive, likely multifactorial secondary to pain and self stopping lisinopril -will give 1 dose of IV hydralazine -Pain control -Resume previous home dose of lisinopril -Blood pressure remains upper side of normal, will continue current medications (3) COPD, moderate: -Has COPD without any exacerbation -Patient noted to have wheezing and rhonchi on exam today -Start scheduled nebs -Patient had episode of hypoxia in the ED after administration of IV Dilaudid, likely secondary to hypoventilation -continue to monitor -No shortness of breath at rest and no spasm of the bronchioles on examination -No wheezing and/or shortness of breath -Denies any respiratory symptoms (4) Anxiety: Denies any acute anxiety (5) Bipolar disorder: -Continue home meds (6) GERD (gastroesophageal reflux disease): -Continue H2 robyn (7) Tobacco abuse: -Patient counseled regarding tobacco cessation (8) Marijuana use: --Patient counseled regarding marijuana cessation and that it could be contributing to her abdominal pain (9) DVT prophylaxis: -SQ Lovenox Bowel has not moved Will try milk of magnesia for dyspepsia every 6 hours Has been having diarrhea we will DC milk of magnesia Stool for C. difficile colitis-negative Stool culture is pending-negative so far Likely to go home tomorrow Total Time Total Time Spent Total Time Spent (In Minutes): 35 minutes Total Time Includes: Examination of the Patient, Discharge Planning, Medication Reconciliation and Communication With Other Providers Discharge Plan Discharge Items Patient Disposition: Home - Self-Care Reason For Visit: COLITIS Discharge Diagnosis: Nonspecific colitis, abdominal pain-resolved Condition: Good Discharge Goals: Decrease discomfort, Improve function and Increase independence Activity: Resume your previous activity Non-emergency contact: Primary Care Provider Call non-emergency contact if: you have any medication questions and your symptoms worsen Follow-up/Referrals: Andre Mancera [Primary Care Provider] - 07/19/18 2:45 pm (Please keep appointment with your induction machine setter) Diet: Regular Addtl Provider Instructions: Please keep appointment with your induction machine setter Prescriptions: New amoxicillin-pot clavulanate 875-125 mg Tablet 1 tab PO BIDM 7 Days Qty: 14 RF: 0 Continued trazodone 50 mg tablet 50 mg PO HS RF: 0 lisinopril 20 mg tablet 20 mg PO QAM RF: 0 alprazolam 0.5 mg tablet 0.5 mg PO TID PRN (Reason: Anxiety) RF: 0 wheat dextrin-calcium carb 1 gram-100 mg calcium Tablet,Chewable 1 tab PO DAILY RF: 0 bupropion HCl [Wellbutrin SR] 200 mg tablet extended release 12 hr 200 mg PO BID RF: 0 fluticasone propionate [Flonase Allergy Relief] 50 mcg/actuation spray,suspension 2 spray Intranasal BID PRN (Reason: Nasal Congestion) RF: 0 vitamin E 400 unit Capsule 800 unit PO DAILY RF: 0 albuterol sulfate 2.5 mg /3 mL (0.083 %) Solution For Nebulization 2.5 mg INHALATION QID PRN (Reason: Shortness Of Breath Or Wheezing) RF: 0 cyclobenzaprine 10 mg Tablet 10 mg PO HS PRN (Reason: Muscle Spasm) RF: 0 oxycodone-acetaminophen [Percocet] 5-325 mg tablet 1 tab PO 5XD RF: 0 cyanocobalamin (vitamin B-12) [Vitamin B-12] 500 mcg Tablet 500 mcg PO QAM RF: 0 dicyclomine 20 mg Tablet 20 mg PO Q6H PRN (Reason: Abdominal Pain) RF: 0 ferrous sulfate 325 mg (65 mg iron) Tablet 325 mg PO QAM RF: 0 ranitidine HCl [Zantac] 150 mg tablet 150 mg PO BID RF: 0 gabapentin [Neurontin] 300 mg capsule 300 mg PO TID RF: 0 calcium carbonate-vitamin D3 [Calcium 500 + D (D3)] 500 mg(1,250mg) -125 unit Tablet 1 tab PO QAM RF: 0 Align 4 mg Capsule 4 mg PO DAILY RF: 0 omega 5-jem-iwf-fish oil [Fish Oil] 1,000 mg (120 mg-180 mg) Capsule 1,000 mg PO QAM RF: 0 Combivent Respimat 20-100 mcg/actuation mist 1 puff Inhalation QID PRN (Reason: Wheezing) RF: 0 Discontinued ciprofloxacin HCl 500 mg tablet 500 mg PO Q12H 7 Days Qty: 14 RF: 0 metronidazole [Flagyl] 500 mg Tablet 500 mg PO TID RF: 0 Stand-Alone Forms: Call Back Authorization, [facility] Discharge Orders: Discharge Order (Routine); Ordered 07/17/18 Ordered By: Froylan Bradshaw Admission Data Admit Date/Time: 07/13/18 12:13 Attending Provider: Froylan Bradshaw Admit Provider: Froylan Bradshaw Primary Care Provider: Andre Mancera Other Providers: Froylan Bradshaw ; Skip Salinas Service: Medical Other Interventions: Discharge Summary Assessment (RN) Last Done: 07/17/18 13:50 DC Date/Time DO NOT enter until pt leaves facility: 07/17/18 14:22
== END 2018-07-17 14:22 | disposition home or self-care (01) | DRG 392 ==
LOC: ED 09:34 → 4E 12:13